=== PATIENT | female | born 1935 | race Caucasian/White ===

== ENCOUNTER 2016-12-14 15:55 | Inpatient (IN) | payer OTHER, MEDICARE ==
[~2016-12-14] VITALS: Ht 152.4 cm; Wt 78.0 kg
[~2016-12-14 15:55] MED LIST: ATOR-24 PO; CHOL100010 PO; CZR25 PO; DEXT40GE2 PO; GABA-112 PO; IPRASOL4 INH; LSX40 PO; NVLGIPEN SC; NYSTOIN5 TOP; SENN-91 PO; TYL325X PO
[2016-12-14] MEDS ORDERED: SODIUM CHLORIDE 0.9% 1000ML 500 ML IV STA (16:10)
--- NOTE | 2016-12-14 16:39 | DIAGNOSTIC IMAGING REPORT ---
CHEST ONE VIEW PORTABLE HISTORY: EVALUATE ALTERED MENTAL STATUS/WEAKNESS COMPARISON: Chest 09/07/2016. FINDINGS: The heart is mildly enlarged. No focal lung consolidations to suggest pneumonia. No evidence for pulmonary edema. Stable linear scarlike density within the left midlung zone. No pleural effusions. No pneumothorax. IMPRESSION: No significant change compared to the prior study. No acute process. Stable mild cardiomegaly. Electronically signed by: Travis Anand M.D. 12/14/2016 4:38 PM Dictated Date/Time: 12/14/2016 4:37 PM
[2016-12-14 17:19] LABS: URINE APPEARANCE CLEAR (CLEAR); URINE BILIRUBIN NEG (NEG); URINE COLOR YELLOW; URINE NITRITE NEG (NEG); URINE SPECIFIC GRAVITY 1.007 (1.000-1.030); UROBILINOGEN NEG (NEG); ZZURINE CULT IF INDIC CATH NO
[2016-12-14 17:21] LABS: MANUAL MICROSCOPIC REQUIRED? NO; REVIEW REQ? NO
--- NOTE | 2016-12-14 17:31 | EMERGENCY ROOM VISIT NOTE ---
"History Report prepared by Peter: Noe Simon Under the Supervision of: Dr. Satish Acosta M.D. First contact with patient: 16:04 Chief Complaint: REFERRED BY DOCTOR Stated Complaint: SEEING THINGS History of Present Illness The patient is an 81 year old female who presents to the Emergency Room for acute visual hallucinations that she was experiencing yesterday. The patient fell asleep on her recliner yesterday. The patient woke up thinking that there is somebody inserting something into her nose, which did not happen. The patient also believes she has been hearing things. The patient saw Dr. La yesterday, where she was diagnosed with a UTI. The patient has middle back pain, which she attributes to sciatica. The patient has not had any recent falls or trauma. She denies fevers, headaches, shortness of breath, vomiting, or diarrhea. The patient does not a cough. She was admitted to the hospital several months ago for similar complaints. She had a negative stroke workup and a questionable UTI at that time. The patient was released from the hospital just before , and has been doing well until now. Source of History: patient Onset: yesterday Position: other (visual) Quality: other (hallucinations) Timing: other (acute) Associated Symptoms: + cough, No SOB, No back pain, No diarrhea, No fevers, No headache, No vomiting Review of Systems See HPI for pertinent positives & negatives. A total of 10 systems reviewed and were otherwise negative. 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 Surgical Problems: (1) H/O esophagogastroduodenoscopy (2) H/O partial thyroidectomy (3) H/O total thyroidectomy (4) History of angioplasty of peripheral vessel (5) History of mastectomy (6) S/P cataract surgery (7) S/P T&A (status post tonsillectomy and adenoidectomy) Family History Diabetes mellitus BROTHER SISTER FH: CAD (coronary artery disease) FATHER FH: GI cancer MOTHER (Colon CA) FH: cancer BROTHER (Brain) Stroke FATHER Social History Smoking Status: Never Smoker Drug Use: none Marital Status: single Housing Status: lives alone Occupation Status: retired Current/Historical Medications Scheduled Amlodipine (Norvasc), 10 MG PO DAILY Aspirin (Aspirin 81), 81 MG PO DAILY Atorvastatin (Lipitor), 40 MG PO HS Calcitriol (Rocaltrol Cap), 1 CAP PO 3XWK Cholecalciferol (Vitamin D), 1,000 INTER.UNIT PO BID Clopidogrel (Plavix), 75 MG PO DAILY Dorzolamide Hcl-Timolol Maleat (Cosopt Oph), 1 DROPS OP BID Famotidine (Pepcid), 20 MG PO BID Fluticasone Propionate (Nasal) (Flonase), 2 SPRAYS MARK BID Furosemide (Furosemide), 40 MG PO QAM Insulin Aspart (Novolog), 10 UNITS SQ TIDM Insulin Glargine (Lantus Solostar), 13 UNITS SQ BID Isosorbide Mononitrate Ext Rel (Imdur Ext Rel), 60 MG PO QAM Levothyroxine (Synthroid *), 0.05 MG PO DAILY Losartan Potassium (Losartan Potassium), 25 MG PO QAM Lutein (Lutein), 1 CAP PO DAILY Metoprolol Succinate (Toprol Xl), 200 MG PO DAILY Nitroglycerin (Nitrostat), 0.4 MG UT PRN Nystatin/Triamcinolone (Mycogen ||), 1 APPLN TOP BID Sennosides-Docusate Sodium (Senna S), 1 TAB PO QD Scheduled PRN Acetaminophen (Tylenol), 650 MG PO Q4H PRN for Pain or Fever Dextrose (Diabetic Use) (Glutose 15), 1 EA PO DAILY PRN for Ipratropium-Albuterol (Duoneb), 3 ML INH QIDR PRN for dyspnea Allergies Coded Allergies: Adhesives (Verified Allergy, Unknown, 12/14/16) Brimonidine (Verified Allergy, Unknown, 12/14/16) Latex1 -Allergic Contact Dermititis (Verified Allergy, Unknown, 12/14/16) Methadone (Verified Allergy, Unknown, 12/14/16) Rofecoxib (Verified Allergy, Unknown, 12/14/16) Propoxyphene (Verified Adverse Reaction, Mild, 12/14/16) LIGHTHEADED Sulfa Antibiotics (Verified Adverse Reaction, Unknown, NAUSEA/VOMITING TO SULFA DRUGS, 12/14/16) Physical Exam Vital Signs Date Time Temp Pulse Resp B/P Pulse Ox O2 Delivery O2 Flow Rate FiO2 12/14/16 18:23 58 20 147/66 97 Room Air 12/14/16 17:34 62 12/14/16 15:58 36.3 68 19 125/74 96 Room Air Physical Exam GENERAL: Patient is in no acute distress. HEENT: No acute trauma, normocephalic atraumatic, mucous membranes moist, no nasal congestion, no scleral icterus. NECK: No stridor, no adenopathy, no meningismus, trachea is midline. LUNGS: Clear to auscultation bilaterally, no wheeze, no rhonchi, breath sounds equal. HEART: Without murmurs gallops or rubs, regular rate and rhythm. ABDOMEN: Soft, nontender, bowel sounds positive, no hernias, no peritonitis. EXTREMITIES: No cyanosis or edema, full range of motion of all the joints without pain or difficulty, no signs for acute trauma. NEUROLOGIC: Oriented x 3, no acute motor or sensory deficits, no focal weakness. SKIN: No rash, no jaundice, no diaphoresis. Medical Decision & Procedures ER Provider Diagnostic Interpretation: X ray results and stated below per my interpretation and radiologist interpretation. Other radiology results and stated below per my review and radiologist interpretation: CHEST ONE VIEW PORTABLE HISTORY: EVALUATE ALTERED MENTAL STATUS/WEAKNESS COMPARISON: Chest 09/07/2016. FINDINGS: The heart is mildly enlarged. No focal lung consolidations to suggest pneumonia. No evidence for pulmonary edema. Stable linear scarlike density within the left midlung zone. No pleural effusions. No pneumothorax. IMPRESSION: No significant change compared to the prior study. No acute process. Stable mild cardiomegaly. Electronically signed by: Travis Anand M.D. 12/14/2016 4:38 PM Dictated Date/Time: 12/14/2016 4:[address]: Impression: No significant change compared to the prior study. No acute intracranial abnormality. Laboratory Results 12/14/16 17:29 Red Blood Count 3.80, Mean Corpuscular Volume 90.5, Mean Corpuscular Hemoglobin 31.3, Mean Corpuscular Hemoglobin Concent 34.6, Mean Platelet Volume 11.1, Neutrophils (%) (Auto) 61.7, Lymphocytes (%) (Auto) 26.7, Monocytes (%) (Auto) 7.7, Eosinophils (%) (Auto) 3.0, Basophils (%) (Auto) 0.5, Neutrophils # (Auto) 5.17, Lymphocytes # (Auto) 2.23, Monocytes # (Auto) 0.64, Eosinophils # (Auto) 0.25, Basophils # (Auto) 0.04 12/14/16 17:29 Test 12/14/16 16:55 12/14/16 17:29 Urine Color YELLOW Urine Appearance CLEAR (CLEAR) Urine pH 5.0 (4.5-7.5) Urine Specific [place] 1.007 (1.000-1.030) Urine Protein NEG (NEG) Urine Glucose (UA) NEG (NEG) Urine Ketones NEG (NEG) Urine Occult Blood NEG (NEG) Urine Nitrite NEG (NEG) Urine Bilirubin NEG (NEG) Urine Urobilinogen NEG (NEG) Urine Leukocyte Esterase NEG (NEG) White Blood Count 8.36 K/uL (4.8-10.8) Red Blood Count 3.80 M/uL (4.2-5.4) Hemoglobin 11.9 g/dL (12.0-16.0) Hematocrit 34.4 % (37-47) Mean Corpuscular Volume 90.5 fL (80-100) Mean Corpuscular Hemoglobin 31.3 pg (25-34) Mean Corpuscular Hemoglobin Concent 34.6 g/dl (32-36) Platelet Count 255 K/uL (130-400) Mean Platelet Volume 11.1 fL (7.4-10.4) Neutrophils (%) (Auto) 61.7 % Lymphocytes (%) (Auto) 26.7 % Monocytes (%) (Auto) 7.7 % Eosinophils (%) (Auto) 3.0 % Basophils (%) (Auto) 0.5 % Neutrophils # (Auto) 5.17 K/uL (1.4-6.5) Lymphocytes # (Auto) 2.23 K/uL (1.2-3.4) Monocytes # (Auto) 0.64 K/uL (0.11-0.59) Eosinophils # (Auto) 0.25 K/uL (0-0.5) Basophils # (Auto) 0.04 K/uL (0-0.2) RDW Standard Deviation 44.5 fL (36.4-46.3) RDW Coefficient of Variation 13.6 % (11.5-14.5) Immature Granulocyte % (Auto) 0.4 % Immature Granulocyte # (Auto) 0.03 K/uL (0.00-0.02) Echinocytes 1+ Venous Blood pH 7.43 (7.36-7.41) Venous Blood Partial Pressure CO2 37 mmHg (38.0-50.0) Venous Blood Partial Pressure O2 34 mmHg Venous Blood HCO3 24 mmol/L Venous Blood Oxygen Saturation 65.6 % Venous Blood Base Excess -0.3 mmol/L Anion Gap 13.0 mmol/L (3-11) Est Creatinine Clear Calc Drug Dose 20.0 ml/min Estimated GFR () 26.3 Estimated GFR (Non- 22.7 BUN/Creatinine Ratio 21.4 (10-20) Calcium Level 8.7 mg/dl (8.5-10.1) Total Bilirubin 0.4 mg/dl (0.2-1) Aspartate Amino Transf (AST/SGOT) 18 U/L (15-37) Alanine Aminotransferase (ALT/SGPT) 21 U/L (12-78) Alkaline Phosphatase 112 U/L (45-117) Ammonia 15.0 umol/L (11-32) Troponin I < 0.015 ng/ml (0-0.045) Total Protein 7.4 gm/dl (6.4-8.2) Albumin 3.4 gm/dl (3.4-5.0) Globulin 4.0 gm/dl (2.5-4.0) Albumin/Globulin Ratio 0.9 (0.9-2) Thyroid Stimulating Hormone (TSH) 1.940 uIu/ml (0.300-4.500) Free Thyroxine 1.33 ng/dl (0.80-1.60) Laboratory results reviewed by me. Medications Administered Medications (Trade) Dose Ordered Sig/Mitch Route Start Time Stop Time Status Last Admin Dose Admin Sodium Chloride (Nss 1000ml) 500 ml @ 999 mls/hr Q31M STAT IV 12/14/16 16:10 2/2/17 16:40 DC 12/14/16 18:23 999 MLS/HR ECG Indication: back/shoulder pain Rate (beats per minute): 60 Rhythm: sinus rhythm Findings: PVC, other (baseline artifact, LVH, non-specific T wave changes laterally.) Change: no significant change Change: No significant changes when compared to EKG dated 13 Mar 2016 other than increased baseline artifact. ED Course 1606: The patient was evaluated in room B5. A complete history and physical exam was performed. 1610: NSS 500 ml @ 999 mls/hr. Medical Decision Differential diagnosis includes medication reaction, infection, electrolyte imbalance, anemia, liver failure, renal failure, intracranial bleeding, stroke, dementia, UTI. There is no leukocytosis or concerning anemia. Renal panel testing shows renal insufficiency but this appears baseline, no significant electrolyte abnormality requiring correction. There was no hepatitis. The patient appears to be in a euthyroid state. Ammonia level was not elevated. Cath urine sample does not show any signs of infection. Brain CT shows no acute bleed or mass effect. On exam, there were no focal neurologic deficits. The patient was not toxic or febrile. VBG does not show any significant CO2 retention. The patient was given IV saline, she has been resting comfortably. Right now, she is not having symptoms, she does not have any focal neurologic deficits. The patient has a change in mental status, the cause is unclear. Certainly, this may be some dementia, there is the possibility of a medication causing her trouble. I do not think she is stable for discharge home. I did speak to case management, I talked to the patient and family. The on-call hospitalist was consulted. Impression Primary Impression: Change in mental status Additional Impression: Hallucinations Scribe Attestation The scribe's documentation has been prepared under my direction and personally reviewed by me in its entirety. I confirm that the note above accurately reflects all work, treatment, procedures, and medical decision making performed by me. Departure Information Dispostion Being Evaluated By Hospitalist Referrals Ruperto Irby (PCP) Patient Instructions My [facility] Health Problem Qualifiers"
[2016-12-14 17:49] LABS: VEN BLD GAS O2 SATURATION 65.6 %; VEN BLOOD GAS BASE EXCESS -0.3 mmol/L
[2016-12-14 18:01] LABS: ALT/SGPT 21 U/L (12-78); BLOOD UREA NITROGEN 43 mg/dl (7-18); BUN/CREATININE RATIO 21.4 (10-20); CALCIUM 8.7 mg/dl (8.5-10.1); CARBON DIOXIDE 21 mmol/L (21-32); CHLORIDE 105 mmol/L (98-107); GLUCOSE 173 mg/dl (70-99); POTASSIUM 4.1 mmol/L (3.5-5.1); SODIUM 139 mmol/L (136-145)
[2016-12-14 18:04] LABS: HEMATOCRIT 34.4 % (37-47); MEAN CELL VOLUME 90.5 fL (80-100); MEAN CORPUSCULAR HEMOGLOBIN 31.3 pg (25-34); MEAN CORPUSCULAR HGB CONC 34.6 g/dl (32-36); MEAN PLATELET VOLUME 11.1 fL (7.4-10.4); PLATELET COUNT 255 K/uL (130-400); WHITE BLOOD COUNT 8.36 K/uL (4.8-10.8)
[2016-12-14 18:05] LABS: BASO % 0.5 %; BASO ABS # 0.04 K/uL (0-0.2); COMPLETE YES; ECHINOCYTES 1+; IG% 0.4 %; LYMPH % 26.7 %; LYMPH ABS # 2.23 K/uL (1.2-3.4); MONO % 7.7 %; NEUT % 61.7 %
[2016-12-14 18:11] LABS: ALB/GLOB RATIO 0.9 (0.9-2); ALKALINE PHOSPHATASE 112 U/L (45-117); AST/SGOT 18 U/L (15-37)
--- NOTE | 2016-12-14 18:21 | DIAGNOSTIC IMAGING REPORT ---
HEAD CT NONCONTRAST CT DOSE: 614.27 mGy.cm HISTORY: EVALUATE ALTERED MENTAL STATUS/WEAKNESS TECHNIQUE: Multiaxial CT images of the head were performed without the use of intravenous contrast. Automated exposure control was utilized for this study. Comparison: Head CT 09/07/2016. Findings: The paranasal sinuses and mastoid air cells are clear. The calvarium and skull base are intact. There is no mass, hematoma, midline shift, acute infarct. White matter hypodensity is nonspecific but suggestive of microvascular ischemic change. The ventricles and sulci demonstrate mild age-related involutional changes. Stable 3.1 cm arachnoid cyst within the left middle cranial fossa. Impression: No significant change compared to the prior study. No acute intracranial abnormality. Electronically signed by: Travis Anand M.D. 12/14/2016 6:20 PM Dictated Date/Time: 12/14/2016 6:16 PM
[2016-12-14] MEDS ORDERED: ACETAMINOPHEN 325 MG TAB PO PRN ×2 (20:15→20:30)
--- NOTE | 2016-12-14 20:21 | History and Physical ---
History & Physical Date & Time of Service: Dec 14, 2016 at 20:08 Chief Complaint: Seeing Things Primary Care Physician: Demond La MD History of Present Illness Source: patient, family (Nephew) 81 year old female with history of CAD, DM, HTN, other problems below presenting with visual and auditory hallucinations. Patient follows with Dr. La. She was admitted for evaluation of hallucinations last August 2016. Work up was performed and Psychiatry and Neurology was consulted. At that time, hallucinations was felt to be likely due to her Oxycodone and Gabapentin. Work up was otherwise unrevealing. She was discharged to [facility] and ultimately weaned off Oxycodone and Gabapentin. Patient returned home a month later. She lives by herself and her nephew checks on her few times a week, also manages her medications. For the past weeks, patient noted that she has been having more visual and auditory hallucinations- nurse putting something in her nose, hearing voices. Patient's nephew adds that about a month ago, patient called the police as she thought somebody might be entering her house. She saw Dr. La - Urine culture drawn and is negative for UTI. Today, she woke up and saw little girls around her bed. Dr. La advised her to go to ER. At the ER, patient was afebrile, VS stable. CT head no acute process. Crea is stable, Blood work also unrevealing including TSH, Ammonia. On exam, patient oriented x 3, not in distress, comfortable. She is frustrated , saying "they took me all my pain medicines and this is still going on." Denies other symptoms. 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 (13) Lumbago Status: Chronic (14) Sciatica Status: Chronic (15) 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 Status: Chronic (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 Surgical Problems: (1) H/O esophagogastroduodenoscopy Status: Chronic (2) H/O partial thyroidectomy Permanent Comment: 2002 Status: Chronic (3) H/O total thyroidectomy Permanent Comment: 2004 Status: Chronic (4) History of angioplasty of peripheral vessel Permanent Comment: Left Fem-pop bypass 2005 Status: Chronic (5) History of mastectomy Permanent Comment: 2006, right breast Status: Chronic (6) S/P cataract surgery Permanent Comment: 1994 Status: Chronic (7) S/P T&A (status post tonsillectomy and adenoidectomy) Status: Chronic Family History Diabetes mellitus BROTHER SISTER FH: CAD (coronary artery disease) FATHER FH: GI cancer MOTHER (Colon CA) FH: cancer BROTHER (Brain) Stroke FATHER Social History Smoking Status: Never Smoker Drug Use: none Marital Status: single Housing status: lives alone Occupational Status: retired Immunizations History of Influenza Vaccine: N/A Influenza Vaccine Date: Sep 06, 2005 History of Tetanus Vaccine?: Yes History of Pneumococcal: Yes Pneumococcal Date: Jan 19, 2010 History of Hepatitis B Vaccine: Unknown Multi-Drug Resistant Organisms History of MDRO: No Allergies Coded Allergies: Adhesives (Verified Allergy, Unknown, 12/14/16) Brimonidine (Verified Allergy, Unknown, 12/14/16) Latex1 -Allergic Contact Dermititis (Verified Allergy, Unknown, 12/14/16) Methadone (Verified Allergy, Unknown, 12/14/16) Rofecoxib (Verified Allergy, Unknown, 12/14/16) Propoxyphene (Verified Adverse Reaction, Mild, 12/14/16) LIGHTHEADED Sulfa Antibiotics (Verified Adverse Reaction, Unknown, NAUSEA/VOMITING TO SULFA DRUGS, 12/14/16) Home Medications Scheduled Amlodipine (Norvasc), 10 MG PO DAILY Aspirin (Aspirin 81), 81 MG PO DAILY Atorvastatin (Lipitor), 40 MG PO HS Calcitriol (Rocaltrol Cap), 1 CAP PO 3XWK Cholecalciferol (Vitamin D), 1,000 INTER.UNIT PO BID Clopidogrel (Plavix), 75 MG PO DAILY Dorzolamide Hcl-Timolol Maleat (Cosopt Oph), 1 DROPS OP BID Famotidine (Pepcid), 20 MG PO BID Fluticasone Propionate (Nasal) (Flonase), 2 SPRAYS MARK BID Furosemide (Furosemide), 40 MG PO QAM Insulin Aspart (Novolog), 10 UNITS SQ TIDM Insulin Glargine (Lantus Solostar), 13 UNITS SQ BID Isosorbide Mononitrate Ext Rel (Imdur Ext Rel), 60 MG PO QAM Levothyroxine (Synthroid *), 0.05 MG PO DAILY Losartan Potassium (Losartan Potassium), 25 MG PO QAM Lutein (Lutein), 1 CAP PO DAILY Metoprolol Succinate (Toprol Xl), 200 MG PO DAILY Nitroglycerin (Nitrostat), 0.4 MG UT PRN Nystatin/Triamcinolone (Mycogen ||), 1 APPLN TOP BID Sennosides-Docusate Sodium (Senna S), 1 TAB PO QD Scheduled PRN Acetaminophen (Tylenol), 650 MG PO Q4H PRN for Pain or Fever Dextrose (Diabetic Use) (Glutose 15), 1 EA PO DAILY PRN for Ipratropium-Albuterol (Duoneb), 3 ML INH QIDR PRN for dyspnea Review of Systems Constitutional- no fever; no weight loss Eyes- no acute visual changes ENT- no sinus drainage; no pharyngitis Pulmonary- no cough, no wheezing, no shortness of breath Cardiac- no chest pain, no palpitations, no orthopnea, no dependent edema GI- no nausea, no vomiting, no diarrhea, no melena, no hematochezia - no dysuria, no hematuria Musculoskeletal- no arthralgias, no myalgias Derm- no rashes, no new skin lesions, no changing skin lesions Hematologic- no unusual bruising, no unusual bleeding Lymphatics- no adenopathy Endocrine- no polyuria or polydipsia; no heat or cold intolerance Neuro- no headaches, no focal neurologic symptoms Psych- (+) as noted above, no anxiety, no depression Physical Exam Vital Signs Date Time Temp Pulse Resp B/P Pulse Ox O2 Delivery O2 Flow Rate FiO2 12/14/16 19:09 70 19 169/81 97 Room Air 12/14/16 18:23 58 20 147/66 97 Room Air 12/14/16 17:34 62 12/14/16 15:58 36.3 68 19 125/74 96 Room Air General Appearance: WD/WN, no apparent distress Head: normocephalic, atraumatic Eyes: normal inspection, PERRL, EOMI ENT: normal ENT inspection, hearing grossly normal, pharynx normal Neck: supple, no adenopathy, thyroid normal, no JVD, trachea midline Respiratory/Chest: chest non-tender, lungs clear, normal breath sounds, no respiratory distress, no accessory muscle use Cardiovascular: regular rate, rhythm, no edema, no gallop, no murmur Abdomen/GI: normal bowel sounds, non tender, soft Back: normal inspection, no CVA tenderness Extremities/Musculoskelatal: normal inspection, no calf tenderness, normal capillary refill, no pedal edema, normal range of motion Neurologic/Psych: equipment analyst II-XII nml as tested, no motor/sensory deficits, alert, normal mood/affect, normal reflexes, oriented x 3 Skin: normal color, warm/dry, no rash Lymphatic: no adenopathy Diagnostics Laboratory Results Results Past 24 Hours Test 12/14/16 16:55 12/14/16 17:29 Range/Units Urine Color YELLOW Urine Appearance CLEAR CLEAR Urine pH 5.0 4.5-7.5 Urine Specific [place] 1.007 1.000-1.030 Urine Protein NEG NEG Urine Glucose (UA) NEG NEG Urine Ketones NEG NEG Urine Occult Blood NEG NEG Urine Nitrite NEG NEG Urine Bilirubin NEG NEG Urine Urobilinogen NEG NEG Urine Leukocyte Esterase NEG NEG White Blood Count 8.36 4.8-10.8 K/uL Red Blood Count 3.80 4.2-5.4 M/uL Hemoglobin 11.9 12.0-16.0 g/dL Hematocrit 34.4 37-47 % Mean Corpuscular Volume 90.5 80-100 fL Mean Corpuscular Hemoglobin 31.3 25-34 pg Mean Corpuscular Hemoglobin Concent 34.6 32-36 g/dl Platelet Count 255 130-400 K/uL Mean Platelet Volume 11.1 7.4-10.4 fL Neutrophils (%) (Auto) 61.7 % Lymphocytes (%) (Auto) 26.7 % Monocytes (%) (Auto) 7.7 % Eosinophils (%) (Auto) 3.0 % Basophils (%) (Auto) 0.5 % Neutrophils # (Auto) 5.17 1.4-6.5 K/uL Lymphocytes # (Auto) 2.23 1.2-3.4 K/uL Monocytes # (Auto) 0.64 0.11-0.59 K/uL Eosinophils # (Auto) 0.25 0-0.5 K/uL Basophils # (Auto) 0.04 0-0.2 K/uL RDW Standard Deviation 44.5 36.4-46.3 fL RDW Coefficient of Variation 13.6 11.5-14.5 % Immature Granulocyte % (Auto) 0.4 % Immature Granulocyte # (Auto) 0.03 0.00-0.02 K/uL Echinocytes 1+ Venous Blood pH 7.43 7.36-7.41 Venous Blood Partial Pressure CO2 37 38.0-50.0 mmHg Venous Blood Partial Pressure O2 34 mmHg Venous Blood HCO3 24 mmol/L Venous Blood Oxygen Saturation 65.6 % Venous Blood Base Excess -0.3 mmol/L Sodium Level 139 136-145 mmol/L Potassium Level 4.1 3.5-5.1 mmol/L Chloride Level 105 98-107 mmol/L Carbon Dioxide Level 21 21-32 mmol/L Anion Gap 13.0 3-11 mmol/L Blood Urea Nitrogen 43 7-18 mg/dl Creatinine 2.00 0.60-1.20 mg/dl Est Creatinine Clear Calc Drug Dose 20.0 ml/min Estimated GFR () 26.3 Estimated GFR (Non- 22.7 BUN/Creatinine Ratio 21.4 10-20 Random Glucose 173 70-99 mg/dl Calcium Level 8.7 8.5-10.1 mg/dl Total Bilirubin 0.4 0.2-1 mg/dl Aspartate Amino Transf (AST/SGOT) 18 15-37 U/L Alanine Aminotransferase (ALT/SGPT) 21 12-78 U/L Alkaline Phosphatase 112 45-117 U/L Ammonia 15.0 11-32 umol/L Troponin I < 0.015 0-0.045 ng/ml Total Protein 7.4 6.4-8.2 gm/dl Albumin 3.4 3.4-5.0 gm/dl Globulin 4.0 2.5-4.0 gm/dl Albumin/Globulin Ratio 0.9 0.9-2 Thyroid Stimulating Hormone (TSH) 1.940 0.300-4.500 uIu/ml Free Thyroxine 1.33 0.80-1.60 ng/dl Diagnostic Radiology CT head: Findings: The paranasal sinuses and mastoid air cells are clear. The calvarium and skull base are intact. There is no mass, hematoma, midline shift, acute infarct. White matter hypodensity is nonspecific but suggestive of microvascular ischemic change. The ventricles and sulci demonstrate mild age-related involutional changes. Stable 3.1 cm arachnoid cyst within the left middle cranial fossa. Impression: No significant change compared to the prior study. No acute intracranial abnormality. CXR: IMPRESSION: No significant change compared to the prior study. No acute process. Stable mild cardiomegaly. EKG HR 60, sinus rhythm, with PVCs Impression Assessment and Plan 81 year old female with history of CAD, DM, HTN, other problems below presenting with visual and auditory hallucinations. HALLUCINATIONS- AUDITORY AND VISUAL - at this time, no signs of underlying infection or possible metabolic encephalopathy - ammonia normal, crea at baseline TSH normal check Vit b12 and Folate - Neuro work up done 08/28, unrevealing - will re-consult Psych HISTORY OF CAD no cardiac symptoms continue Aspirin, Plavix, Imdur, Losartan, Metoprolol DM 2 continue Lantus BID ISS HYPERTENSION stable continue Amlodipine and above medications CKD 4 crea stable HYPOTHYROIDISM euthyroid TSH/T4 normal DVT prophylaxis SCDs Code status Full Code Disposition lives alone at home will need PT/OT eval will benefit from home health services ff up with PCP Dr. La VTE Prophylaxis VTE Risk Assessment Done? Y/N: Yes Risk Level: Moderate
[2016-12-14] MEDS ORDERED: ONDANSETRON INJ 2 MG/ML 2 ML VIAL IV PRN (20:30)
[2016-12-14] MEDS ORDERED: ATORVASTATIN 40 MG TAB PO SCH (21:00)
[2016-12-14 21:52] VITALS: BP 147/87; PULSE 68; TEMP 36.4; O2SAT 97; Ht 152.4 cm; Wt 78.0 kg
[2016-12-14] MEDS ORDERED: GLUCAGON FOR INJ 1 MG VIAL SQ PRN (22:15)
[2016-12-14] MEDS ORDERED: GLUCOSE 10 TABS/TUBE PO PRN (22:15)
[2016-12-14] MEDS ORDERED: GLUCOSE 40% GEL 15 GM TUBE PO PRN (22:15)
[2016-12-14] MEDS ORDERED: DEXTROSE 50% 50 ML SYR IV PRN (22:15)
[2016-12-14] MEDS: CHOLECALCIFEROL 1000 INTER.UNIT TAB PO SCH (22:34)
[2016-12-14] MEDS: FAMOTIDINE 20 MG TAB PO SCH (22:34)
[2016-12-14] MEDS: INSULIN GLARGINE SOLOSTAR 100 UNITS/ML 3 ML PEN SQ SCH (22:35)
[2016-12-14 23:19] LABS: BENZODIAZEPINE, URINE NEG (NEG); COCAINE,URINE NEG (NEG); PHENCYCLIDINE, URINE NEG (NEG)
[2016-12-15 00:43] VITALS: BP 127/66; PULSE 63; TEMP 36.5; O2SAT 99
[2016-12-15] MEDS ORDERED: GLUCOSE 40% GEL 15 GM TUBE PO PRN (04:00)
[2016-12-15] MEDS ORDERED: GLUCAGON FOR INJ 1 MG VIAL SQ PRN (04:00)
[2016-12-15] MEDS ORDERED: GLUCOSE 10 TABS/TUBE PO PRN (04:00)
[2016-12-15] MEDS ORDERED: DEXTROSE 50% 50 ML SYR IV PRN (04:00)
[2016-12-15] MEDS: LEVOTHYROXINE 50 MCG TAB PO SCH (06:20)
--- NOTE | 2016-12-15 07:17 | Clinical Documentation Query ---
CLINICAL DOCUMENTATION QUERY Dr. RENO, In your clinical opinion is this patient being managed for: (X ) Chronic combined systolic and diastolic CHF ( ) Other explanation of clinical findings (Please Explain) ( ) Unable to determine (Please Define) ( ) Need to Discuss ( ) Not Agree The medical record reflects the following clinical findings, treatment, and risk factors. Clinical Indicators: H/P indicates pt with hx of CHF. Review of EMR showed ECHO from February 2016 with an EF of 45-50% and grade I diastolic dysfunction Treatment:chronic norvasc, lasix, imdur, cozaar, toprol xl, Risk Factors: age, DM, HTN Please clarify and document your clinical opinion in the progress notes and discharge summary. Terms such as "probable", "suspected", "likely", "questionable", "possible", or "still to be ruled out" are acceptable. IF IN AGREEMENT, YOU MUST DOCUMENT ABOVE DIAGNOSTIC STATEMENT IN DAILY PROGRESS NOTES AND DISCHARGE SUMMARY. This document is not part of the patient's record. Thank You, Vandana Banuelos, JIMENEZ [phone]
[2016-12-15 07:22] LABS: BASO % 0.7 %; BASO ABS # 0.04 K/uL (0-0.2); COMPLETE YES; EOS % 6.3 %; HEMATOCRIT 33.1 % (37-47); IG% 0.2 %; LYMPH % 30.8 %; MEAN CELL VOLUME 90.2 fL (80-100); MEAN CORPUSCULAR HGB CONC 33.2 g/dl (32-36); MEAN PLATELET VOLUME 11.5 fL (7.4-10.4); MONO % 9.4 %; NEUT % 52.6 %; PLATELET COUNT 246 K/uL (130-400); RED BLOOD COUNT 3.67 M/uL (4.2-5.4); WHITE BLOOD COUNT 5.84 K/uL (4.8-10.8)
[2016-12-15] MEDS ORDERED: NURSING DECISION MEDICATION ORDER SCH (07:30)
[2016-12-15] MEDS ORDERED: MICONAZOLE NITRATE POWDER 43 GM EXT PRN (07:45)
[2016-12-15 08:10] LABS: BUN/CREATININE RATIO 21.3 (10-20); CALCIUM 8.3 mg/dl (8.5-10.1); CREATININE 1.7 mg/dl (0.60-1.20); POTASSIUM 4.1 mmol/L (3.5-5.1)
[2016-12-15 08:15] VITALS: BP 136/77; PULSE 60; TEMP 36.6; O2SAT 99
[2016-12-15] MEDS: ISOSORBIDE MONONITRATE 60 MG TABCR PO SCH (08:27)
[2016-12-15] MEDS: METOPROLOL SUCC 50MG EXT REL TAB PO SCH (08:27)
[2016-12-15] MEDS: FUROSEMIDE 40 MG TAB PO SCH (08:28)
[2016-12-15] MEDS: CLOPIDOGREL BISULFATE 75 MG TAB PO SCH (08:28)
[2016-12-15] MEDS: AMLODIPINE BESYLATE 5 MG TAB PO SCH (08:28)
[2016-12-15] MEDS: ASPIRIN 81 MG ECTAB PO SCH (08:28)
[2016-12-15] MEDS: FAMOTIDINE 20 MG TAB PO SCH ×2 (08:28→21:17)
[2016-12-15] MEDS: DORZOLAMIDE/TIMOLOL 22.3/6.8MG/ML 10 ML BTL OP SCH ×2 (08:29→21:15)
[2016-12-15] MEDS: NYSTATIN/TRIAMCINOLONE OINT 15 GM TUBE EXT SCH ×2 (08:29→21:15)
[2016-12-15] MEDS: CALCITRIOL 0.25 MCG CAP PO SCH (08:29)
[2016-12-15] MEDS: CHOLECALCIFEROL 1000 INTER.UNIT TAB PO SCH ×2 (08:29→21:18)
[2016-12-15] MEDS: DOCUSATE SODIUM/SENNA 50/8.6MG TAB PO SCH (08:30)
[2016-12-15] MEDS: LOSARTAN POTASSIUM 25 MG TAB PO SCH (08:30)
[2016-12-15] MEDS: FLUTICASONE PROPIONATE NA SPR 16 GM BTL NAE SCH ×2 (08:30→21:15)
[2016-12-15] MEDS: INSULIN ASPART 100 UNITS/ML 3 ML PEN SC SCH ×5 (08:44→22:28)
[2016-12-15] MEDS: INSULIN GLARGINE SOLOSTAR 100 UNITS/ML 3 ML PEN SQ SCH ×2 (08:50→21:24)
--- NOTE | 2016-12-15 12:28 | Psych Management Progress Note ---
Psychiatry Miscellaneous Date of Service: Dec 15, 2016. Patient seen. MS assessed. Known to me from a previous inpatient consultation. Full consult dictated. Patient describing hypopompic strong in setting of variable blood sugars and poor eye sight, can't exclude Aravind Bonnet syndrome, suspect component of sundowning. She is amenable to trial of low dose Seroquel given ongoing nature of these complaints.
[2016-12-15 15:34] VITALS: BP 111/57; PULSE 61; TEMP 36.7; O2SAT 92
--- NOTE | 2016-12-15 16:18 | PSYCHIATRIC CONSULTATION ---
DATE OF CONSULTATION: 12/15/2016 IDENTIFYING DATA: Ms. Diehl is an 81-year-old female who lives alone () in [place]. She was previously seen on psychiatric consultation on 09/07/2016. At that time, her nephew/power of document review attorney was concerned about her reports of hallucinations, particularly in the context of deteriorating eyesight. At that time she was calling police to check out cars that she heard pulling away and thought there were people in her basement. Apparently in the context of home, she had voiced paranoia about someone trying to harm her, but those symptoms were not present in the hospital under observed med compliance. There was concern in that she was starting to wander, related to these voices. At least at that time, there was concern about additional delirium as she was being treated for UTI with Cipro. Her nephew had reported seeing pills on the floor and unused insulin syringes. There was concern about her ability to prepare meals for herself and she was ultimately discharged to rehab. This hospitalization, she has been again having more visual and auditory hallucinations. Previously she had described blue people. Today, she tells me that she saw multiple girls, less than 3 feet tall, dressed in pink dresses. She describes this occurred immediately upon awakening and was just transient. She states she had noted low blood sugar prior to having a snack and taking a nap. CT was negative. To me, she mainly describes what sounds like illusions, given her poor eyesight and/or deteriorating memory. She goes into her closet and does not recognize clothes. She can only do certain tasks during the day due to her poor eyesight. She states she was trying to clean out some drawers and found a ripped sheet that she did not think was hers. PAST PSYCHIATRIC HISTORY: None other than the previous consultation. PAST MEDICAL HISTORY: Significant for diabetes type 2, goiter, history of OH, reflux, hypertension, dyslipidemia, hypothyroidism, glaucoma. PAST SURGICAL HISTORY: Surgeries as previously listed. ALLERGIES: ADHESIVES, BRIMONIDINE, LATEX, METHADONE, ROFECOXIB, PROPOXYPHENE, SULFA ANTIBIOTICS. HOME MEDICATIONS: Calcitriol, amlodipine, aspirin, Plavix, Lasix, Imdur, Cozaar, Toprol, Senokot, Synthroid, insulin, vitamin D, Pepcid, Lipitor, Flonase, Mycogen ointment. FAMILY HISTORY: There is no family psychiatric history or history of suicide attempts. This was previously confirmed with nephew. Alcohol use none. SUBSTANCE USE HISTORY: None. PERSONAL HISTORY: Born in [place], had 4 sisters and 3 brothers, only 2 of her brothers are still alive. 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 She was 6 years. Her in 1979. She has no children. No history of legal problems. No abuse history. REVIEW OF SYSTEMS: The patient is currently without physical complaints cross 10 body systems. MENTAL STATUS EXAMINATION: Ms. Diehl presents as somewhat disheveled female who appears her stated age. She is quite hard of hearing. She did maintain fair eye contact. She is dressed in a hospital gown. Her thought processes are somewhat tangential. She denied suicidal or homicidal ideation. She denied hallucinations currently and did not appear to be responding to internal stimuli. Insight and judgment are better than last contact, but still somewhat impaired. IMPRESSION: An 81-year-old female with hallucinations and some behavioral disturbance, likely related to underlying dementia, cannot exclude Aravind Bonnet syndrome. Certainly, she herself notices fluctuations in her symptoms depending on blood sugar control and there is evidence from family to suspect she is not able to keep up with medications and meals without supervision. PLAN: She currently states that she would be amenable to in-home nursing services, obviously involvement of [facility] would also be warranted. Ideally, she would go to assisted living setting where there is some oversight of her meals and medications. Her symptoms are distressing to her, particularly at night, so I suspect there is some degree of sundowning. Treatment with Aricept or another agent can be deferred to outpatient provider. Acutely, she is willing to try Seroquel which was discussed with her nephew last hospitalization, given the risks of in elderly. Current benefits seem to outweigh the risks, given repeated hospitalization. If related to eyesight/poor hearing/Aravind Bonnet syndrome, Seroquel unlikely to be effective. We will start 12.5 mg Seroquel at bedtime. Monitor sugars. Currently on exam, there is no acute indication for inpatient geriatric psychiatric hospitalization, but I do not feel that she can be home unsupervised. [facility]
--- NOTE | 2016-12-15 17:08 | Progress Note ---
Internal Med Progress Note Date of Service: Dec 15, 2016. Provider Documentation: SUBJECTIVE: patient says she saw rails at the door not hearing any voices says recent;y pravastatin was changed to Lipitor and thinks Lipitor causing cough afebrile denies any pain OBJECTIVE: Vital Signs-as noted below Exam: General-alert and oriented ENT-hard of hearing Neck-no neck masses Lungs-cta b/l no wheezing or crackles Heart-s1 and s2 heard regular rate and rhythm no murmurs Abdomen-soft bowel sounds present non tender no distension Extremities-no erythema no edema Neuro-alert and awake and oriented non focal Lab data as noted below. ASSESSMENT & PLAN: 81 year old female with history of CAD, DM, HTN, other problems below presenting with visual and auditory hallucinations. HALLUCINATIONS- AUDITORY AND VISUAL no signs of infection labs unremarkable ammonia levels normal TSH normal Normal Vit b12 and Folate Neuro work up done 08/28, unrevealing consulted psychiatry and started on Seroquel. will monitor HISTORY OF CAD stable on Aspirin, Plavix, Imdur, Losartan, Metoprolol DM 2 On Lantus BID ISS will monitor HYPERTENSION stable on Amlodipine and above medications CKD 4 crea stable at 1.7 HYPOTHYROIDISM euthyroid TSH/T4 normal DVT prophylaxis SCDs Code status Full Code Disposition lives alone at home Needs PT/OT eval social service for d/c planning Vital Signs: Date Time Temp Pulse Resp B/P Pulse Ox O2 Delivery O2 Flow Rate FiO2 12/15/16 15:34 36.7 61 18 111/57 92 Room Air 12/15/16 08:15 36.6 60 20 136/77 99 Room Air 12/15/16 08:00 Room Air 12/15/16 00:43 36.5 63 20 127/66 99 Room Air 12/15/16 00:00 Room Air 12/14/16 21:52 36.4 68 147/87 97 Room Air 12/14/16 20:56 64 18 142/77 97 12/14/16 19:09 70 19 169/81 97 Room Air 12/14/16 18:23 58 20 147/66 97 Room Air 12/14/16 17:34 62 Lab Results: Results Past 24 Hours Test 12/14/16 17:29 12/14/16 22:45 12/15/16 06:45 12/15/16 07:57 Range/Units White Blood Count 8.36 5.84 4.8-10.8 K/uL Red Blood Count 3.80 3.67 4.2-5.4 M/uL Hemoglobin 11.9 11.0 12.0-16.0 g/dL Hematocrit 34.4 33.1 37-47 % Mean Corpuscular Volume 90.5 90.2 80-100 fL Mean Corpuscular Hemoglobin 31.3 30.0 25-34 pg Mean Corpuscular Hemoglobin Concent 34.6 33.2 32-36 g/dl Platelet Count 255 246 130-400 K/uL Mean Platelet Volume 11.1 11.5 7.4-10.4 fL Neutrophils (%) (Auto) 61.7 52.6 % Lymphocytes (%) (Auto) 26.7 30.8 % Monocytes (%) (Auto) 7.7 9.4 % Eosinophils (%) (Auto) 3.0 6.3 % Basophils (%) (Auto) 0.5 0.7 % Neutrophils # (Auto) 5.17 3.07 1.4-6.5 K/uL Lymphocytes # (Auto) 2.23 1.80 1.2-3.4 K/uL Monocytes # (Auto) 0.64 0.55 0.11-0.59 K/uL Eosinophils # (Auto) 0.25 0.37 0-0.5 K/uL Basophils # (Auto) 0.04 0.04 0-0.2 K/uL RDW Standard Deviation 44.5 45.1 36.4-46.3 fL RDW Coefficient of Variation 13.6 13.6 11.5-14.5 % Immature Granulocyte % (Auto) 0.4 0.2 % Immature Granulocyte # (Auto) 0.03 0.01 0.00-0.02 K/uL Echinocytes 1+ Venous Blood pH 7.43 7.36-7.41 Venous Blood Partial Pressure CO2 37 38.0-50.0 mmHg Venous Blood Partial Pressure O2 34 mmHg Venous Blood HCO3 24 mmol/L Venous Blood Oxygen Saturation 65.6 % Venous Blood Base Excess -0.3 mmol/L Sodium Level 139 144 136-145 mmol/L Potassium Level 4.1 4.1 3.5-5.1 mmol/L Chloride Level 105 109 98-107 mmol/L Carbon Dioxide Level 21 26 21-32 mmol/L Anion Gap 13.0 9.0 3-11 mmol/L Blood Urea Nitrogen 43 36 7-18 mg/dl Creatinine 2.00 1.70 0.60-1.20 mg/dl Est Creatinine Clear Calc Drug Dose 20.0 23.6 ml/min Estimated GFR () 26.3 32.0 Estimated GFR (Non- 22.7 27.6 BUN/Creatinine Ratio 21.4 21.3 10-20 Random Glucose 173 106 70-99 mg/dl Calcium Level 8.7 8.3 8.5-10.1 mg/dl Total Bilirubin 0.4 0.2-1 mg/dl Aspartate Amino Transf (AST/SGOT) 18 15-37 U/L Alanine Aminotransferase (ALT/SGPT) 21 12-78 U/L Alkaline Phosphatase 112 45-117 U/L Ammonia 15.0 11-32 umol/L Troponin I < 0.015 0-0.045 ng/ml Total Protein 7.4 6.4-8.2 gm/dl Albumin 3.4 3.4-5.0 gm/dl Globulin 4.0 2.5-4.0 gm/dl Albumin/Globulin Ratio 0.9 0.9-2 Thyroid Stimulating Hormone (TSH) 1.940 0.300-4.500 uIu/ml Free Thyroxine 1.33 0.80-1.60 ng/dl Urine Opiates Screen NEG NEG Urine Methadone, Qualitative NEG NEG Urine Barbiturates NEG NEG Urine Phencyclidine (PCP) Level NEG NEG Ur Amphetamine/Methamphetamine NEG NEG MDMA (Ecstasy) Screen NEG NEG Urine Benzodiazepines Screen NEG NEG Urine Cocaine Metabolite NEG NEG Urine Marijuana (THC) NEG NEG Vitamin B12 Level 669 211-911 pg/mL Folate > 24.00 >5.38 ng/mL Bedside Glucose 97 70-90 mg/dl
[2016-12-15] MEDS: PRAVASTATIN SOD 40 MG TAB PO SCH (17:54)
[2016-12-15] MEDS: QUETIAPINE FUMARATE 25 MG TAB PO SCH (21:18)
[2016-12-16 00:09] VITALS: BP 103/63; PULSE 63; TEMP 37; O2SAT 96
[2016-12-16] MEDS: LEVOTHYROXINE 50 MCG TAB PO SCH (05:50)
[2016-12-16 07:10] VITALS: BP 146/75; PULSE 57; TEMP 36.8; O2SAT 98
[2016-12-16] MEDS: METOPROLOL SUCC 50MG EXT REL TAB PO SCH (07:41)
[2016-12-16] MEDS: DORZOLAMIDE/TIMOLOL 22.3/6.8MG/ML 10 ML BTL OP SCH ×2 (07:42→20:54)
[2016-12-16] MEDS: NYSTATIN/TRIAMCINOLONE OINT 15 GM TUBE EXT SCH ×2 (07:42→20:55)
[2016-12-16] MEDS: FLUTICASONE PROPIONATE NA SPR 16 GM BTL NAE SCH ×2 (07:42→20:54)
[2016-12-16] MEDS: CLOPIDOGREL BISULFATE 75 MG TAB PO SCH (07:43)
[2016-12-16] MEDS: DOCUSATE SODIUM/SENNA 50/8.6MG TAB PO SCH (07:43)
[2016-12-16] MEDS: CHOLECALCIFEROL 1000 INTER.UNIT TAB PO SCH ×2 (07:43→20:53)
[2016-12-16] MEDS: ISOSORBIDE MONONITRATE 60 MG TABCR PO SCH (07:43)
[2016-12-16] MEDS: LOSARTAN POTASSIUM 25 MG TAB PO SCH (07:43)
[2016-12-16] MEDS: AMLODIPINE BESYLATE 5 MG TAB PO SCH (07:43)
[2016-12-16] MEDS: FAMOTIDINE 20 MG TAB PO SCH ×2 (07:43→20:54)
[2016-12-16] MEDS: ASPIRIN 81 MG ECTAB PO SCH (07:43)
[2016-12-16] MEDS: FUROSEMIDE 40 MG TAB PO SCH (07:43)
[2016-12-16] MEDS: INSULIN ASPART 100 UNITS/ML 3 ML PEN SC SCH ×4 (09:02→21:10)
[2016-12-16] MEDS: INSULIN GLARGINE SOLOSTAR 100 UNITS/ML 3 ML PEN SQ SCH ×2 (09:03→21:10)
[2016-12-16 15:57] VITALS: BP 138/75; PULSE 62; TEMP 36.3; O2SAT 99
[2016-12-16] MEDS: PRAVASTATIN SOD 40 MG TAB PO SCH (17:04)
--- NOTE | 2016-12-16 17:29 | Progress Note ---
Internal Med Progress Note Date of Service: Dec 16, 2016. Provider Documentation: SUBJECTIVE: patient says last night she was little confused and did not know where she was but ok now didn't see any things today eating ok When I told I changed her Lipitor to pravastatin she says her cough is better now afebrile OBJECTIVE: Vital Signs-as noted below Exam: General-alert and oriented ENT-hard of hearing Neck-no neck masses Lungs-cta b/l no wheezing or crackles Heart-s1 and s2 heard regular rate and rhythm no murmurs Abdomen-soft bowel sounds present non tender no distension Extremities-no erythema no edema Neuro-alert and awake and oriented non focal Lab data as noted below. ASSESSMENT & PLAN: 81 year old female with history of CAD, DM, HTN, other problems below presenting with visual and auditory hallucinations. HALLUCINATIONS- AUDITORY AND VISUAL no signs of infection labs unremarkable ammonia levels normal TSH normal Normal Vit b12 and Folate Neuro work up done 08/28, unrevealing consulted psychiatry and started on Seroquel. pt/ot lives alone may need placement will monitor HISTORY OF CAD stable on Aspirin, Plavix, Imdur, Losartan, Metoprolol DM 2 On Lantus BID ISS will monitor HYPERTENSION stable on Amlodipine and above medications CKD 4 crea stable at 1.7 CHRONIC SYSTOLIC AND DIASTOLIC CHF CONTINUE HOME MEDS STABLE HYPOTHYROIDISM euthyroid TSH/T4 normal DVT prophylaxis SCDs Code status Full Code Disposition lives alone at home PT/OT eval social service for d/c planning Vital Signs: Date Time Temp Pulse Resp B/P Pulse Ox O2 Delivery O2 Flow Rate FiO2 12/17/16 11:04 Room Air 12/17/16 00:42 36.5 65 18 152/76 97 Room Air 12/16/16 23:59 Room Air 12/16/16 19:28 Room Air 12/16/16 15:57 36.3 62 20 138/75 99 Lab Results: Results Past 24 Hours Test 12/16/16 16:54 12/16/16 20:36 12/17/16 01:14 12/17/16 05:29 Range/Units Bedside Glucose 95 195 213 70-90 mg/dl White Blood Count 6.73 4.8-10.8 K/uL Red Blood Count 3.54 4.2-5.4 M/uL Hemoglobin 11.0 12.0-16.0 g/dL Hematocrit 31.5 37-47 % Mean Corpuscular Volume 89.0 80-100 fL Mean Corpuscular Hemoglobin 31.1 25-34 pg Mean Corpuscular Hemoglobin Concent 34.9 32-36 g/dl Platelet Count 217 130-400 K/uL Neutrophils (%) (Auto) 47.6 % Lymphocytes (%) (Auto) 31.6 % Monocytes (%) (Auto) 14.0 % Eosinophils (%) (Auto) 5.9 % Basophils (%) (Auto) 0.6 % Neutrophils # (Auto) 3.20 1.4-6.5 K/uL Lymphocytes # (Auto) 2.13 1.2-3.4 K/uL Monocytes # (Auto) 0.94 0.11-0.59 K/uL Eosinophils # (Auto) 0.40 0-0.5 K/uL Basophils # (Auto) 0.04 0-0.2 K/uL Immature Granulocyte % (Auto) 0.3 % Immature Granulocyte # (Auto) 0.02 0.00-0.02 K/uL Sodium Level 142 136-145 mmol/L Potassium Level 3.8 3.5-5.1 mmol/L Chloride Level 108 98-107 mmol/L Carbon Dioxide Level 25 21-32 mmol/L Anion Gap 9.0 3-11 mmol/L Blood Urea Nitrogen 52 7-18 mg/dl Creatinine 2.00 0.60-1.20 mg/dl Est Creatinine Clear Calc Drug Dose 20.0 ml/min Estimated GFR () 26.3 Estimated GFR (Non- 22.7 BUN/Creatinine Ratio 26.2 10-20 Random Glucose 139 70-99 mg/dl Calcium Level 8.5 8.5-10.1 mg/dl Test 12/17/16 07:49 12/17/16 11:30 Range/Units Bedside Glucose 122 334 70-90 mg/dl
[2016-12-16] MEDS: QUETIAPINE FUMARATE 25 MG TAB PO SCH (20:53)
[2016-12-17 00:42] VITALS: BP 152/76; PULSE 65; TEMP 36.5; O2SAT 97
[2016-12-17] MEDS: LEVOTHYROXINE 50 MCG TAB PO SCH (05:38)
[2016-12-17 05:50] LABS: BASO % 0.6 %; BASO ABS # 0.04 K/uL (0-0.2); COMPLETE YES; EOS % 5.9 %; HEMATOCRIT 31.5 % (37-47); IG% 0.3 %; LYMPH % 31.6 %; LYMPH ABS # 2.13 K/uL (1.2-3.4); MEAN CORPUSCULAR HEMOGLOBIN 31.1 pg (25-34); MEAN CORPUSCULAR HGB CONC 34.9 g/dl (32-36); NEUT % 47.6 %; PLATELET COUNT 217 K/uL (130-400); RED BLOOD COUNT 3.54 M/uL (4.2-5.4); WHITE BLOOD COUNT 6.73 K/uL (4.8-10.8)
[2016-12-17 06:16] LABS: BUN/CREATININE RATIO 26.2 (10-20); CALCIUM 8.5 mg/dl (8.5-10.1); POTASSIUM 3.8 mmol/L (3.5-5.1)
[2016-12-17] MEDS: FLUTICASONE PROPIONATE NA SPR 16 GM BTL NAE SCH ×2 (09:08→20:25)
[2016-12-17] MEDS: DORZOLAMIDE/TIMOLOL 22.3/6.8MG/ML 10 ML BTL OP SCH ×2 (09:08→20:25)
[2016-12-17] MEDS: NYSTATIN/TRIAMCINOLONE OINT 15 GM TUBE EXT SCH ×2 (09:08→20:29)
[2016-12-17] MEDS: FUROSEMIDE 40 MG TAB PO SCH (09:09)
[2016-12-17] MEDS: ISOSORBIDE MONONITRATE 60 MG TABCR PO SCH (09:09)
[2016-12-17] MEDS: ASPIRIN 81 MG ECTAB PO SCH (09:09)
[2016-12-17] MEDS: LOSARTAN POTASSIUM 25 MG TAB PO SCH (09:09)
[2016-12-17] MEDS: CHOLECALCIFEROL 1000 INTER.UNIT TAB PO SCH ×2 (09:10→20:25)
[2016-12-17] MEDS: METOPROLOL SUCC 50MG EXT REL TAB PO SCH (09:10)
[2016-12-17] MEDS: CLOPIDOGREL BISULFATE 75 MG TAB PO SCH (09:10)
[2016-12-17] MEDS: FAMOTIDINE 20 MG TAB PO SCH ×2 (09:10→20:26)
[2016-12-17] MEDS: AMLODIPINE BESYLATE 5 MG TAB PO SCH (09:10)
[2016-12-17] MEDS: INSULIN ASPART 100 UNITS/ML 3 ML PEN SC SCH ×4 (09:11→20:40)
[2016-12-17] MEDS: INSULIN GLARGINE SOLOSTAR 100 UNITS/ML 3 ML PEN SQ SCH ×2 (09:12→20:39)
[2016-12-17] MEDS: DOCUSATE SODIUM/SENNA 50/8.6MG TAB PO SCH (10:47)
--- NOTE | 2016-12-17 15:23 | Progress Note ---
Internal Med Progress Note Date of Service: Dec 17, 2016. Provider Documentation: SUBJECTIVE: The patient was seen and examined Feels better and denies any more Hallucinations Has had only one episode of cough last night OBJECTIVE: Vital Signs-as noted below Exam: General-No distress at rest Eyes-normal ENT-normal Neck-Supple Lungs-Clear to auscultate bilaterally Heart-Regular,no murmur Abdomen-Benifn,no masses,bowel sound present Extremities-No edema Neuro-AA Lab data as noted below. ASSESSMENT & PLAN: 81 year old female with history of CAD, DM, HTN, other problems below presenting with visual and auditory hallucinations. HALLUCINATIONS- AUDITORY AND VISUAL No signs of infection and or Encephalopathy Labs unremarkable,ammonia levels normal,TSH normai,Normal Vit b12 and Folate Neuro work up done 08/28, unrevealing Psychiatry consulted and started on Seroquel. Clinically better and symptomatically better Likely to be discharged in a day or two HISTORY OF CAD Stable on Aspirin, Plavix, Imdur, Losartan, Metoprolol DM 2 On Lantus BID ISS will monitor HYPERTENSION stable on Amlodipine and above medications CKD 4 Creatinine stable at 1.7 Worse today 12/17/16 Advised more fluid intake CHRONIC SYSTOLIC AND DIASTOLIC CHF CONTINUE HOME MEDS STABLE HYPOTHYROIDISM euthyroid TSH/T4 normal DVT prophylaxis SCDs Code status Full Code Disposition lives alone at home PT/OT eval social service for d/c planning Vital Signs: Date Time Temp Pulse Resp B/P Pulse Ox O2 Delivery O2 Flow Rate FiO2 12/17/16 11:04 Room Air 12/17/16 00:42 36.5 65 18 152/76 97 Room Air 12/16/16 23:59 Room Air 12/16/16 19:28 Room Air 12/16/16 15:57 36.3 62 20 138/75 99 Lab Results: Results Past 24 Hours Test 12/16/16 16:54 12/16/16 20:36 12/17/16 01:14 12/17/16 05:29 Range/Units Bedside Glucose 95 195 213 70-90 mg/dl White Blood Count 6.73 4.8-10.8 K/uL Red Blood Count 3.54 4.2-5.4 M/uL Hemoglobin 11.0 12.0-16.0 g/dL Hematocrit 31.5 37-47 % Mean Corpuscular Volume 89.0 80-100 fL Mean Corpuscular Hemoglobin 31.1 25-34 pg Mean Corpuscular Hemoglobin Concent 34.9 32-36 g/dl Platelet Count 217 130-400 K/uL Neutrophils (%) (Auto) 47.6 % Lymphocytes (%) (Auto) 31.6 % Monocytes (%) (Auto) 14.0 % Eosinophils (%) (Auto) 5.9 % Basophils (%) (Auto) 0.6 % Neutrophils # (Auto) 3.20 1.4-6.5 K/uL Lymphocytes # (Auto) 2.13 1.2-3.4 K/uL Monocytes # (Auto) 0.94 0.11-0.59 K/uL Eosinophils # (Auto) 0.40 0-0.5 K/uL Basophils # (Auto) 0.04 0-0.2 K/uL Immature Granulocyte % (Auto) 0.3 % Immature Granulocyte # (Auto) 0.02 0.00-0.02 K/uL Sodium Level 142 136-145 mmol/L Potassium Level 3.8 3.5-5.1 mmol/L Chloride Level 108 98-107 mmol/L Carbon Dioxide Level 25 21-32 mmol/L Anion Gap 9.0 3-11 mmol/L Blood Urea Nitrogen 52 7-18 mg/dl Creatinine 2.00 0.60-1.20 mg/dl Est Creatinine Clear Calc Drug Dose 20.0 ml/min Estimated GFR () 26.3 Estimated GFR (Non- 22.7 BUN/Creatinine Ratio 26.2 10-20 Random Glucose 139 70-99 mg/dl Calcium Level 8.5 8.5-10.1 mg/dl Test 12/17/16 07:49 12/17/16 11:30 Range/Units Bedside Glucose 122 334 70-90 mg/dl
[2016-12-17 15:54] VITALS: BP 109/65; PULSE 63; TEMP 36.5; O2SAT 99
[2016-12-17] MEDS: PRAVASTATIN SOD 40 MG TAB PO SCH (17:45)
[2016-12-17] MEDS: QUETIAPINE FUMARATE 25 MG TAB PO SCH (20:30)
[2016-12-18 00:06] VITALS: BP 126/69; PULSE 63; TEMP 37.1; O2SAT 97
[2016-12-18] MEDS: LEVOTHYROXINE 50 MCG TAB PO SCH (06:24)
[2016-12-18 07:53] LABS: HEMATOCRIT 32.1 % (37-47); MEAN CELL VOLUME 89.9 fL (80-100); MEAN CORPUSCULAR HEMOGLOBIN 30.5 pg (25-34); MEAN PLATELET VOLUME 11.2 fL (7.4-10.4); PLATELET COUNT 224 K/uL (130-400); RED BLOOD COUNT 3.57 M/uL (4.2-5.4); WHITE BLOOD COUNT 5.91 K/uL (4.8-10.8)
[2016-12-18] MEDS: DOCUSATE SODIUM/SENNA 50/8.6MG TAB PO SCH (08:00)
[2016-12-18] MEDS: FLUTICASONE PROPIONATE NA SPR 16 GM BTL NAE SCH (08:13)
[2016-12-18] MEDS: DORZOLAMIDE/TIMOLOL 22.3/6.8MG/ML 10 ML BTL OP SCH (08:13)
[2016-12-18] MEDS: NYSTATIN/TRIAMCINOLONE OINT 15 GM TUBE EXT SCH (08:13)
[2016-12-18] MEDS: LOSARTAN POTASSIUM 25 MG TAB PO SCH (08:13)
[2016-12-18] MEDS: ASPIRIN 81 MG ECTAB PO SCH (08:13)
[2016-12-18] MEDS: FAMOTIDINE 20 MG TAB PO SCH (08:14)
[2016-12-18] MEDS: ISOSORBIDE MONONITRATE 60 MG TABCR PO SCH (08:14)
[2016-12-18] MEDS: FUROSEMIDE 40 MG TAB PO SCH (08:14)
[2016-12-18] MEDS: AMLODIPINE BESYLATE 5 MG TAB PO SCH (08:14)
[2016-12-18] MEDS: CALCITRIOL 0.25 MCG CAP PO SCH (08:15)
[2016-12-18] MEDS: CLOPIDOGREL BISULFATE 75 MG TAB PO SCH (08:15)
[2016-12-18] MEDS: CHOLECALCIFEROL 1000 INTER.UNIT TAB PO SCH (08:15)
[2016-12-18] MEDS: METOPROLOL SUCC 50MG EXT REL TAB PO SCH (08:16)
[2016-12-18] MEDS: INSULIN ASPART 100 UNITS/ML 3 ML PEN SC SCH ×2 (08:21→12:39)
[2016-12-18] MEDS: INSULIN GLARGINE SOLOSTAR 100 UNITS/ML 3 ML PEN SQ SCH (08:21)
[2016-12-18 08:26] LABS: BUN/CREATININE RATIO 24.7 (10-20); CALCIUM 8.6 mg/dl (8.5-10.1); MAGNESIUM 2.2 mg/dl (1.8-2.4); POTASSIUM 3.8 mmol/L (3.5-5.1)
[2016-12-18 08:27] LABS: PHOSPHORUS 3.3 mg/dl (2.5-4.9)
[2016-12-18 08:28] VITALS: BP 160/72; PULSE 65; TEMP 37; O2SAT 95
--- NOTE | 2016-12-18 09:29 | Psychiatric Progress Notes ---
Psychiatric Progress Note Date of Service Dec 18, 2016. Notes ID: Patient reviewed/seen with liaison nurse. Interim progress reviewed. CC: sleep improved HPI: denies strong. calm/cooperative with care. Tolerating Seroquel and reports improvement. ROS: denies physical complaints MSE: alert, cooperative, speech normal, thoughts concrete but reality based, no SI/HI/strong/del. Imp: AMS--likely back to baseline Plan: patient desires to maintain her independence, she is aware I recommend she have someone assist with meals/meds and supervision at least overnight. Still agrees that would accept home health no changes in Seroquel dosing, doing well in structure of hospital, f/u with PCP or other provider to monitor her dementia, no acute indication for mac psych
[2016-12-18 11:31] VITALS: BP 160/72; PULSE 65; TEMP 37; O2SAT 95
--- NOTE | 2016-12-18 11:46 | Progress Note ---
Internal Med Progress Note Date of Service: Dec 18, 2016. Provider Documentation: SUBJECTIVE: The patient was seen and examined Feels better and denies any more Hallucinations Remains stable to be discharged Denies any complaints OBJECTIVE: Vital Signs-as noted below Exam: General-No distress at rest Eyes-normal ENT-normal Neck-Supple Lungs-Clear to auscultate bilaterally Heart-Regular,no murmur Abdomen-Benign,no masses,bowel sound present Extremities-No edema Neuro-AA Lab data as noted below. ASSESSMENT & PLAN: 81 year old female with history of CAD, DM, HTN, other problems below presenting with visual and auditory hallucinations. HALLUCINATIONS- AUDITORY AND VISUAL No signs of infection and or Encephalopathy Labs unremarkable,ammonia levels normal,TSH normai,Normal Vit b12 and Folate Neuro work up done 08/28, unrevealing Psychiatry consulted and started on Seroquel. Clinically better and symptomatically better Denies any more symptoms Discussed with the POA Will discharge today HISTORY OF CAD Stable on Aspirin, Plavix, Imdur, Losartan, Metoprolol No acute issue DM 2 On Lantus BID ISS will monitor HYPERTENSION stable on Amlodipine and above medications CKD 4 Creatinine stable at 1.7 Worse today 12/17/16 Advised more fluid intake Creatinine Stable at 2.0 CHRONIC SYSTOLIC AND DIASTOLIC CHF CONTINUE HOME MEDS STABLE HYPOTHYROIDISM euthyroid TSH/T4 normal DVT prophylaxis SCDs Code status Full Code Disposition Lives alone at home PT/OT evaluation performed Social service for d/c planning Can be discharged home with Home health services Vital Signs: Date Time Temp Pulse Resp B/P Pulse Ox O2 Delivery O2 Flow Rate FiO2 12/18/16 11:31 37.0 65 20 95 Room Air 12/18/16 10:02 Room Air 12/18/16 08:28 37.0 65 20 160/72 95 12/18/16 02:13 Room Air 12/18/16 00:06 37.1 63 18 126/69 97 Room Air 12/17/16 19:01 Room Air 12/17/16 15:54 36.5 63 20 109/65 99 Lab Results: Results Past 24 Hours Test 12/17/16 16:17 12/17/16 20:07 12/18/16 07:24 12/18/16 07:25 Range/Units Bedside Glucose 164 217 162 70-90 mg/dl White Blood Count 5.91 4.8-10.8 K/uL Red Blood Count 3.57 4.2-5.4 M/uL Hemoglobin 10.9 12.0-16.0 g/dL Hematocrit 32.1 37-47 % Mean Corpuscular Volume 89.9 80-100 fL Mean Corpuscular Hemoglobin 30.5 25-34 pg Mean Corpuscular Hemoglobin Concent 34.0 32-36 g/dl RDW Standard Deviation 44.4 36.4-46.3 fL RDW Coefficient of Variation 13.5 11.5-14.5 % Platelet Count 224 130-400 K/uL Mean Platelet Volume 11.2 7.4-10.4 fL Sodium Level 142 136-145 mmol/L Potassium Level 3.8 3.5-5.1 mmol/L Chloride Level 108 98-107 mmol/L Carbon Dioxide Level 22 21-32 mmol/L Anion Gap 12.0 3-11 mmol/L Blood Urea Nitrogen 49 7-18 mg/dl Creatinine 2.00 0.60-1.20 mg/dl Est Creatinine Clear Calc Drug Dose 20.0 ml/min Estimated GFR () 26.3 Estimated GFR (Non- 22.7 BUN/Creatinine Ratio 24.7 10-20 Random Glucose 153 70-99 mg/dl Calcium Level 8.6 8.5-10.1 mg/dl Phosphorus Level 3.3 2.5-4.9 mg/dl Magnesium Level 2.2 1.8-2.4 mg/dl
[2016-12-18] MEDS ORDERED: SRQ25 PO (11:48)
--- NOTE | 2016-12-18 11:52 | Discharge Instructions ---
Discharge Instructions Admission Reason for Admission: Hallucinations Discharge Discharge Diagnosis / Problem: Hallucinations Discharge Goals Goal(s): Prevent Disease Progression Activity Recommendations Activity Limitations: resume your previous activity . Instructions / Follow-Up Instructions / Follow-Up Dr La on 12/22 at 11:30AM Current Hospital Diet Patient's current hospital diet: AHA Diet (Heart Healthy), Diabetes Type 2 Diet Discharge Diet Recommended Diet: Diabetes Type 2 Diet Fluid Restriction: 2000 ml (8 cups) Pending Studies Studies pending at discharge: no Medical Emergencies . Who to Call and When: Medical Emergencies: If at any time you feel your situation is an emergency, please call 911 immediately. . Non-Emergent Contact Non-Emergency issues call your: Primary Care Provider . Past History Medical & Surgical History: (1) Hallucinations (2) Change in mental status (3) Toxic nodular goiter (4) Diabetes mellitus type 2 in nonobese (5) GERD (gastroesophageal reflux disease) (6) Generalized osteoarthritis (7) Coronary atherosclerosis (8) HTN (hypertension) (9) Hypothyroidism . "Provider Documentation" section prepared by Mandy Hollis. VTE Core Measure Inpt VTE Proph given/why not?: SCD's
--- NOTE | 2016-12-19 08:14 | Discharge Summary ---
Discharge Summary Admission Date: Dec 14, 2016 at 19:59 Discharge Date: Dec 18, 2016 Discharge Disposition: Home with services Principal Diagnosis: Hallucinations Secondary Diagnoses/Problems: Please see H&P Consultations: Psychiatry Medication Reconciliation New Medications: Quetiapine Fumarate (Quetiapine Fumarate) 25 Mg Tab 12.5 MG PO HS for 30 Days, #15 TAB Continued Medications: Acetaminophen (Tylenol) 325 Mg Tab 650 MG PO Q4H PRN for Pain or Fever for 30 Days, #240 TAB Amlodipine (Norvasc) 10 Mg Tab 10 MG PO DAILY, #30 Aspirin (Aspirin 81) 81 Mg Tab 81 MG PO DAILY Atorvastatin (Lipitor) 40 Mg Tab 40 MG PO HS, TAB Calcitriol (Rocaltrol Cap) 0.25 Mcg Cap 1 CAP PO 3XWK for 30 Days, CAP 5 Refills Take MWF Cholecalciferol (Vitamin D) 1,000 Inter.unit Tab 1000 INTER.UNIT PO BID, TAB Clopidogrel (Plavix) 75 Mg Tab 75 MG PO DAILY Dextrose (Diabetic Use) (Glutose 15) 40 % Gel 1 EA PO DAILY PRN for Dorzolamide Hcl-Timolol Maleat (Cosopt Oph) 1 Mary Mary 1 DROPS OP BID, 3 Refills Famotidine (Pepcid) 20 Mg Tab 20 MG PO BID, TAB Fluticasone Propionate (Nasal) (Flonase) 50 Mcg/Act Spr 2 SPRAYS MARK BID Furosemide (Furosemide) 40 Mg Tab 40 MG PO QAM for 30 Days, #30 TAB 2 Refills Insulin Aspart (Novolog) 100 Units/Ml Inj 10 UNITS SQ TIDM Insulin Glargine (Lantus Solostar) 100 Unit/Ml Inj 13 UNITS SQ BID Ipratropium-Albuterol (Duoneb) 3 Ml Nebu 3 ML INH QIDR PRN for dyspnea for 30 Days Isosorbide Mononitrate Ext Rel (Imdur Ext Rel) 60 Mg Ertab 60 MG PO QAM, TAB Levothyroxine (Synthroid *) 0.05 Mg Tab 0.05 MG PO DAILY Losartan Potassium (Losartan Potassium) 25 Mg Tab 25 MG PO QAM for 30 Days, TAB Lutein (Lutein) 6 Mg Tab 1 CAP PO DAILY Metoprolol Succinate (Toprol Xl) 200 Mg Tab 200 MG PO DAILY, #30 Nitroglycerin (Nitrostat) 0.4 Mg Tab 0.4 MG UT PRN for Chest Pain, 0 Refills One tablet under tongue if needed for chest pain. May repeat 3 times. If chest pain continues, call 911. Nystatin/Triamcinolone (Mycogen ||) Oint 1 APPLN TOP BID APPLY TO CONI AREA Sennosides-Docusate Sodium (Senna S) 1 Tab Tab 1 TAB PO QD, #30 Admission Information HPI (per Admitting provider): 81 year old female with history of CAD, DM, HTN, other problems below presenting with visual and auditory hallucinations. Patient follows with Dr. La. She was admitted for evaluation of hallucinations last August 2016. Work up was performed and Psychiatry and Neurology was consulted. At that time, hallucinations was felt to be likely due to her Oxycodone and Gabapentin. Work up was otherwise unrevealing. She was discharged to [facility] and ultimately weaned off Oxycodone and Gabapentin. Patient returned home a month later. She lives by herself and her nephew checks on her few times a week, also manages her medications. For the past weeks, patient noted that she has been having more visual and auditory hallucinations- nurse putting something in her nose, hearing voices. Patient's nephew adds that about a month ago, patient called the police as she thought somebody might be entering her house. She saw Dr. La - Urine culture drawn and is negative for UTI. Today, she woke up and saw little girls around her bed. Dr. La advised her to go to ER. At the ER, patient was afebrile, VS stable. CT head no acute process. Crea is stable, Blood work also unrevealing including TSH, Ammonia. On exam, patient oriented x 3, not in distress, comfortable. She is frustrated , saying "they took me all my pain medicines and this is still going on." Denies other symptoms. 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 (13) Lumbago Status: Chronic (14) Sciatica Status: Chronic (15) 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 Status: Chronic (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 Surgical Problems: (1) H/O esophagogastroduodenoscopy Status: Chronic (2) H/O partial thyroidectomy Permanent Comment: 2002 Status: Chronic (3) H/O total thyroidectomy Permanent Comment: 2004 Status: Chronic (4) History of angioplasty of peripheral vessel Permanent Comment: Left Fem-pop bypass 2005 Status: Chronic (5) History of mastectomy Permanent Comment: 2006, right breast Status: Chronic (6) S/P cataract surgery Permanent Comment: 1994 Status: Chronic (7) S/P T&A (status post tonsillectomy and adenoidectomy) Status: Chronic Family History Diabetes mellitus BROTHER SISTER FH: CAD (coronary artery disease) FATHER FH: GI cancer MOTHER (Colon CA) FH: cancer BROTHER (Brain) Stroke FATHER Social History Smoking Status: Never Smoker Drug Use: none Marital Status: single Housing status: lives alone Occupational Status: retired Immunizations History of Influenza Vaccine: N/A Influenza Vaccine Date: Sep 06, 2005 History of Tetanus Vaccine?: Yes History of Pneumococcal: Yes Pneumococcal Date: Jan 19, 2010 History of Hepatitis B Vaccine: Unknown Multi-Drug Resistant Organisms History of MDRO: No Allergies Coded Allergies: Adhesives (Verified Allergy, Unknown, 12/14/16) Brimonidine (Verified Allergy, Unknown, 12/14/16) Latex1 -Allergic Contact Dermititis (Verified Allergy, Unknown, 12/14/16) Methadone (Verified Allergy, Unknown, 12/14/16) Rofecoxib (Verified Allergy, Unknown, 12/14/16) Propoxyphene (Verified Adverse Reaction, Mild, 12/14/16) LIGHTHEADED Sulfa Antibiotics (Verified Adverse Reaction, Unknown, NAUSEA/VOMITING TO SULFA DRUGS, 12/14/16) Home Medications Scheduled Amlodipine (Norvasc), 10 MG PO DAILY Aspirin (Aspirin 81), 81 MG PO DAILY Atorvastatin (Lipitor), 40 MG PO HS Calcitriol (Rocaltrol Cap), 1 CAP PO 3XWK Cholecalciferol (Vitamin D), 1,000 INTER.UNIT PO BID Clopidogrel (Plavix), 75 MG PO DAILY Dorzolamide Hcl-Timolol Maleat (Cosopt Oph), 1 DROPS OP BID Famotidine (Pepcid), 20 MG PO BID Fluticasone Propionate (Nasal) (Flonase), 2 SPRAYS MARK BID Furosemide (Furosemide), 40 MG PO QAM Insulin Aspart (Novolog), 10 UNITS SQ TIDM Insulin Glargine (Lantus Solostar), 13 UNITS SQ BID Isosorbide Mononitrate Ext Rel (Imdur Ext Rel), 60 MG PO QAM Levothyroxine (Synthroid *), 0.05 MG PO DAILY Losartan Potassium (Losartan Potassium), 25 MG PO QAM Lutein (Lutein), 1 CAP PO DAILY Metoprolol Succinate (Toprol Xl), 200 MG PO DAILY Nitroglycerin (Nitrostat), 0.4 MG UT PRN Nystatin/Triamcinolone (Mycogen ||), 1 APPLN TOP BID Sennosides-Docusate Sodium (Senna S), 1 TAB PO QD Scheduled PRN Acetaminophen (Tylenol), 650 MG PO Q4H PRN for Pain or Fever Dextrose (Diabetic Use) (Glutose 15), 1 EA PO DAILY PRN for Ipratropium-Albuterol (Duoneb), 3 ML INH QIDR PRN for dyspnea Review of Systems Constitutional- no fever; no weight loss Eyes- no acute visual changes ENT- no sinus drainage; no pharyngitis Pulmonary- no cough, no wheezing, no shortness of breath Cardiac- no chest pain, no palpitations, no orthopnea, no dependent edema GI- no nausea, no vomiting, no diarrhea, no melena, no hematochezia - no dysuria, no hematuria Musculoskeletal- no arthralgias, no myalgias Derm- no rashes, no new skin lesions, no changing skin lesions Hematologic- no unusual bruising, no unusual bleeding Lymphatics- no adenopathy Endocrine- no polyuria or polydipsia; no heat or cold intolerance Neuro- no headaches, no focal neurologic symptoms Psych- (+) as noted above, no anxiety, no depression Physical Ex - H&P Physical Exam Vital Signs Date Time Temp Pulse Resp B/P Pulse Ox O2 Delivery O2 Flow Rate FiO2 12/14/16 19:09 70 19 169/81 97 Room Air 12/14/16 18:23 58 20 147/66 97 Room Air 12/14/16 17:34 62 12/14/16 15:58 36.3 68 19 125/74 96 Room Air General Appearance: WD/WN, no apparent distress Head: normocephalic, atraumatic Eyes: normal inspection, PERRL, EOMI ENT: normal ENT inspection, hearing grossly normal, pharynx normal Neck: supple, no adenopathy, thyroid normal, no JVD, trachea midline Respiratory/Chest: chest non-tender, lungs clear, normal breath sounds, no respiratory distress, no accessory muscle use Cardiovascular: regular rate, rhythm, no edema, no gallop, no murmur Abdomen/GI: normal bowel sounds, non tender, soft Back: normal inspection, no CVA tenderness Extremities/Musculoskelatal: normal inspection, no calf tenderness, normal capillary refill, no pedal edema, normal range of motion Neurologic/Psych: check examiner II-XII nml as tested, no motor/sensory deficits, alert, normal mood/affect, normal reflexes, oriented x 3 Skin: normal color, warm/dry, no rash Lymphatic: no adenopathy Diagnostics - H&P Diagnostics Laboratory Results Results Past 24 Hours Test 12/14/16 16:55 12/14/16 17:29 Range/Units Urine Color YELLOW Urine Appearance CLEAR CLEAR Urine pH 5.0 4.5-7.5 Urine Specific [place] 1.007 1.000-1.030 Urine Protein NEG NEG Urine Glucose (UA) NEG NEG Urine Ketones NEG NEG Urine Occult Blood NEG NEG Urine Nitrite NEG NEG Urine Bilirubin NEG NEG Urine Urobilinogen NEG NEG Urine Leukocyte Esterase NEG NEG White Blood Count 8.36 4.8-10.8 K/uL Red Blood Count 3.80 4.2-5.4 M/uL Hemoglobin 11.9 12.0-16.0 g/dL Hematocrit 34.4 37-47 % Mean Corpuscular Volume 90.5 80-100 fL Mean Corpuscular Hemoglobin 31.3 25-34 pg Mean Corpuscular Hemoglobin Concent 34.6 32-36 g/dl Platelet Count 255 130-400 K/uL Mean Platelet Volume 11.1 7.4-10.4 fL Neutrophils (%) (Auto) 61.7 % Lymphocytes (%) (Auto) 26.7 % Monocytes (%) (Auto) 7.7 % Eosinophils (%) (Auto) 3.0 % Basophils (%) (Auto) 0.5 % Neutrophils # (Auto) 5.17 1.4-6.5 K/uL Lymphocytes # (Auto) 2.23 1.2-3.4 K/uL Monocytes # (Auto) 0.64 0.11-0.59 K/uL Eosinophils # (Auto) 0.25 0-0.5 K/uL Basophils # (Auto) 0.04 0-0.2 K/uL RDW Standard Deviation 44.5 36.4-46.3 fL RDW Coefficient of Variation 13.6 11.5-14.5 % Immature Granulocyte % (Auto) 0.4 % Immature Granulocyte # (Auto) 0.03 0.00-0.02 K/uL Echinocytes 1+ Venous Blood pH 7.43 7.36-7.41 Venous Blood Partial Pressure CO2 37 38.0-50.0 mmHg Venous Blood Partial Pressure O2 34 mmHg Venous Blood HCO3 24 mmol/L Venous Blood Oxygen Saturation 65.6 % Venous Blood Base Excess -0.3 mmol/L Sodium Level 139 136-145 mmol/L Potassium Level 4.1 3.5-5.1 mmol/L Chloride Level 105 98-107 mmol/L Carbon Dioxide Level 21 21-32 mmol/L Anion Gap 13.0 3-11 mmol/L Blood Urea Nitrogen 43 7-18 mg/dl Creatinine 2.00 0.60-1.20 mg/dl Est Creatinine Clear Calc Drug Dose 20.0 ml/min Estimated GFR () 26.3 Estimated GFR (Non- 22.7 BUN/Creatinine Ratio 21.4 10-20 Random Glucose 173 70-99 mg/dl Calcium Level 8.7 8.5-10.1 mg/dl Total Bilirubin 0.4 0.2-1 mg/dl Aspartate Amino Transf (AST/SGOT) 18 15-37 U/L Alanine Aminotransferase (ALT/SGPT) 21 12-78 U/L Alkaline Phosphatase 112 45-117 U/L Ammonia 15.0 11-32 umol/L Troponin I < 0.015 0-0.045 ng/ml Total Protein 7.4 6.4-8.2 gm/dl Albumin 3.4 3.4-5.0 gm/dl Globulin 4.0 2.5-4.0 gm/dl Albumin/Globulin Ratio 0.9 0.9-2 Thyroid Stimulating Hormone (TSH) 1.940 0.300-4.500 uIu/ml Free Thyroxine 1.33 0.80-1.60 ng/dl Diagnostic Radiology CT head: Findings: The paranasal sinuses and mastoid air cells are clear. The calvarium and skull base are intact. There is no mass, hematoma, midline shift, acute infarct. White matter hypodensity is nonspecific but suggestive of microvascular ischemic change. The ventricles and sulci demonstrate mild age-related involutional changes. Stable 3.1 cm arachnoid cyst within the left middle cranial fossa. Impression: No significant change compared to the prior study. No acute intracranial abnormality. CXR: IMPRESSION: No significant change compared to the prior study. No acute process. Stable mild cardiomegaly. EKG HR 60, sinus rhythm, with PVCs Impression - H&P Impression Assessment and Plan 81 year old female with history of CAD, DM, HTN, other problems below presenting with visual and auditory hallucinations. HALLUCINATIONS- AUDITORY AND VISUAL - at this time, no signs of underlying infection or possible metabolic encephalopathy - ammonia normal, crea at baseline TSH normal check Vit b12 and Folate - Neuro work up done 08/28, unrevealing - will re-consult Psych HISTORY OF CAD no cardiac symptoms continue Aspirin, Plavix, Imdur, Losartan, Metoprolol DM 2 continue Lantus BID ISS HYPERTENSION stable continue Amlodipine and above medications CKD 4 crea stable HYPOTHYROIDISM euthyroid TSH/T4 normal DVT prophylaxis SCDs Code status Full Code Disposition lives alone at home will need PT/OT eval will benefit from home health services ff up with PCP Dr. La VTE Prophylaxis VTE Risk Assessment Done? Y/N: Yes Risk Level: Moderate Physical Exam (per Admitting): General Appearance: WD/WN, no apparent distress Head: normocephalic, atraumatic Eyes: normal inspection, PERRL, EOMI ENT: normal ENT inspection, hearing grossly normal, pharynx normal Neck: supple, no adenopathy, thyroid normal, no JVD, trachea midline Respiratory/Chest: chest non-tender, lungs clear, normal breath sounds, no respiratory distress, no accessory muscle use Cardiovascular: regular rate, rhythm, no edema, no gallop, no murmur Abdomen/GI: normal bowel sounds, non tender, soft Back: normal inspection, no CVA tenderness Extremities/Musculoskelatal: normal inspection, no calf tenderness, normal capillary refill, no pedal edema, normal range of motion Neurologic/Psych: check examiner II-XII nml as tested, no motor/sensory deficits, alert , normal mood/affect, normal reflexes, oriented x 3 Skin: normal color, warm/dry, no rash Lymphatic: no adenopathy Hospital Course 81 year old female with history of CAD, DM, HTN, other problems below presenting with visual and auditory hallucinations. HALLUCINATIONS- AUDITORY AND VISUAL No signs of infection and or Encephalopathy Labs unremarkable,ammonia levels normal,TSH normai,Normal Vit b12 and Folate Neuro work up done 08/28, unrevealing Psychiatry consulted and started on Seroquel. Clinically better and symptomatically better Denies any more symptoms Discussed with the POA Will discharge today HISTORY OF CAD Stable on Aspirin, Plavix, Imdur, Losartan, Metoprolol No acute issue DM 2 On Lantus BID ISS will monitor HYPERTENSION stable on Amlodipine and above medications CKD 4 Creatinine stable at 1.7 Worse today 12/17/16 Advised more fluid intake Creatinine Stable at 2.0 CHRONIC SYSTOLIC AND DIASTOLIC CHF CONTINUE HOME MEDS STABLE HYPOTHYROIDISM euthyroid TSH/T4 normal DVT prophylaxis SCDs Code status Full Code Disposition Lives alone at home PT/OT evaluation performed Social service for d/c planning Can be discharged home with Home health services Total time spent on discharge = 35 minutes This includes examination of the patient, discharge planning, medication reconciliation, and communication with other providers. Discharge Instructions Admission Reason for Admission: Hallucinations Discharge Discharge Diagnosis / Problem: Hallucinations Discharge Goals Goal(s): Prevent Disease Progression Activity Recommendations Activity Limitations: resume your previous activity . Instructions / Follow-Up Instructions / Follow-Up Dr La on 12/22 at 11:30AM Current Hospital Diet Patient's current hospital diet: AHA Diet (Heart Healthy), Diabetes Type 2 Diet Discharge Diet Recommended Diet: Diabetes Type 2 Diet Fluid Restriction: 2000 ml (8 cups) Pending Studies Studies pending at discharge: no Medical Emergencies . Who to Call and When: Medical Emergencies: If at any time you feel your situation is an emergency, please call 911 immediately. . Non-Emergent Contact Non-Emergency issues call your: Primary Care Provider . Past History Medical & Surgical History: (1) Hallucinations (2) Change in mental status (3) Toxic nodular goiter (4) Diabetes mellitus type 2 in nonobese (5) GERD (gastroesophageal reflux disease) (6) Generalized osteoarthritis (7) Coronary atherosclerosis (8) HTN (hypertension) (9) Hypothyroidism . "Provider Documentation" section prepared by Mandy Hollis. VTE Core Measure Inpt VTE Proph given/why not?: SCD's <Electronically signed by Mandy Hollis M.D.> Additional Copies To Demond La MD
--- NOTE | 2016-12-20 12:40 | EDITING REQUIRED CODING QUERY ---
CODING QUERY To promote full compliance with coding requirements relating to patient care, provider participation is requested in all cases of head up operator uncertainty. Please assist us with the question(s) below: Coding Question(s): Patient admitted with auditory and visual hallucinations. Consult by Psychiatry indicated symptoms likely related to Dementia. Please indicate the diagnosis/etiology for patient's symptoms. Thanks for your help! Deep Newman [facility] Physician's Response(s): I will go by the Psychiatric assessment and recommendation. Principal Diagnosis: "_that condition established after study, to be chiefly responsible for occasioning the admission of the patient to the hospital for care." Co-Existing Principal Diagnosis: "_when two or more diagnoses equally meet the criteria for principal diagnosis as determined by the circumstances of admission, diagnostic work up, and/or therapy provided, and the Alphabetic Index, Tabular List, or another coding guideline does not provide sequencing direction, any one of the diagnoses may be sequenced first." "When the physician has documented what appears to be a current diagnosis in the body of the record, but has not included the diagnosis in the final diagnostic statement, the physician should be asked whether the diagnosis should be added." (Source Coding [facility] 2 QTR90. p3-4)
[2017-02-11] MEDS ORDERED: ASPI-435 PO (02:42)
[2017-02-11] MEDS ORDERED: AMLO-114 PO (02:49)
[2017-02-11] MEDS ORDERED: METO1TAB70 PO (02:49)
[2017-02-11] MEDS ORDERED: DORZ1SOL6 OP (02:56)
[2017-02-11] MEDS ORDERED: NTRGSL/4 UT (05:13)
[2017-02-11] MEDS ORDERED: ISOS60TA25 PO (07:07)
[2017-02-11] MEDS ORDERED: SYN50 PO (10:39)
[2017-02-11] MEDS ORDERED: CLOP1TAB15 PO (10:39)
[2017-02-11] MEDS ORDERED: FLUT0.0529 NAE (13:48)
[2017-02-11] MEDS ORDERED: LUTE1TAB2 PO (14:12)
[2017-02-11] MEDS ORDERED: FAMO20TA11 PO (14:12)
[2017-02-11] MEDS ORDERED: INSDGIPEN SQ (14:13)
[2017-02-11] MEDS ORDERED: CALC0.2510 PO (16:14)
[2017-02-11] MEDS ORDERED: NVLG SQ (16:43)
[2017-08-02] MEDS ORDERED: LSX40 PO (14:30)
[2017-08-05] MEDS ORDERED: FURO-85 PO (10:07)
== END 2016-12-18 14:00 | disposition home health service (06) | DRG 884 ==
LOC: ENRESERVTM → ENRESERVDT → C.EDB 15:57 → C.4E 19:59
PROVIDERS: ADMIT Internal Medicine; ATTEND Internal Medicine
DX: F03.90 Unspecified dementia, unspecified severity, without behavioral disturbance, psychotic disturbance, mood disturbance, and anxiety (principal); N18.4 Chronic kidney disease, stage 4 (severe); I50.42 Chronic combined systolic (congestive) and diastolic (congestive) heart failure; R44.0 Auditory hallucinations; I12.9 Hypertensive chronic kidney disease with stage 1 through stage 4 chronic kidney disease, or unspecified chronic kidney disease; R44.1 Visual hallucinations; M54.2 Cervicalgia; E11.21 Type 2 diabetes mellitus with diabetic nephropathy; I25.10 Atherosclerotic heart disease of native coronary artery without angina pectoris; E78.5 Hyperlipidemia, unspecified; H40.9 Unspecified glaucoma; K21.9 Gastro-esophageal reflux disease without esophagitis; K58.9 Irritable bowel syndrome, unspecified; Z79.82 Long term (current) use of aspirin; Z88.2 Allergy status to sulfonamides; E03.9 Hypothyroidism, unspecified; I25.2 Old myocardial infarction; Z91.14 Patient's other noncompliance with medication regimen

== ENCOUNTER 2017-02-11 21:06 | Emergency (ER) | payer OTHER, MEDICARE ==
[~2017-02-11] VITALS: Ht 152.4 cm; Wt 78.6 kg
[~2017-02-11 21:06] MED LIST changes: +AMLO-114 PO; +ASPI-435 PO; +CALC0.2510 PO; +CLOP1TAB15 PO; +DORZ1SOL6 OP; +FAMO20TA11 PO; +FLUT0.0529 NAE; -GABA-112 PO; +INSDGIPEN SQ; +ISOS60TA25 PO; +LUTE1TAB2 PO; +METO-648 PO; +NTRGSL/4 UT; +NVLG SQ; -NVLGIPEN SC; +SRQ25 PO; +SYN50 PO
[2017-02-11 21:09] VITALS: TEMP 36.6; Ht 152.4 cm; Wt 78.6 kg
[2017-02-11] MEDS ORDERED: SODIUM CHLORIDE 0.9% 1000ML 1,000 ML IV STA (21:22)
--- NOTE | 2017-02-11 22:02 | DIAGNOSTIC IMAGING REPORT ---
CHEST ONE VIEW PORTABLE CLINICAL HISTORY: Weakness COMPARISON STUDY: December 14, 2016 FINDINGS: The heart is borderline enlarged. There is no failure. There is no focal pulmonary consolidation. There are no pleural effusions.[ IMPRESSION: No active disease in the chest. Electronically signed by: Abram Dawson M.D. 02/11/2017 10:01 PM Dictated Date/Time: 02/11/2017 10:00 PM
[2017-02-11 22:10] LABS: URINE APPEARANCE CLEAR (CLEAR); URINE BILIRUBIN NEG (NEG); URINE COLOR YELLOW; URINE NITRITE NEG (NEG); URINE SPECIFIC GRAVITY 1.018 (1.000-1.030); UROBILINOGEN NEG (NEG)
[2017-02-11 22:12] LABS: MANUAL MICROSCOPIC REQUIRED? NO; REVIEW REQ? NO
[2017-02-11 22:18] LABS: BASO % 0.5 %; BASO ABS # 0.04 K/uL (0-0.2); COMPLETE YES; EOS % 3.6 %; HEMATOCRIT 35.3 % (37-47); IG% 0.3 %; LYMPH % 24.3 %; LYMPH ABS # 2.13 K/uL (1.2-3.4); MEAN CELL VOLUME 88.5 fL (80-100); MEAN CORPUSCULAR HEMOGLOBIN 30.8 pg (25-34); MEAN CORPUSCULAR HGB CONC 34.8 g/dl (32-36); MEAN PLATELET VOLUME 10.8 fL (7.4-10.4); NEUT % 62.3 %; PLATELET COUNT 270 K/uL (130-400); RED BLOOD COUNT 3.99 M/uL (4.2-5.4); WHITE BLOOD COUNT 8.77 K/uL (4.8-10.8)
[2017-02-11] MEDS ORDERED: DOCU-94 PO (22:21)
[2017-02-11] MEDS ORDERED: PRAV40TA2 PO (22:21)
--- NOTE | 2017-02-11 22:28 | DIAGNOSTIC IMAGING REPORT ---
CT HEAD WITHOUT CONTRAST (CT) CLINICAL HISTORY: Change in mental status. Weakness. COMPARISON STUDY: 12-29 TECHNIQUE: Axial CT of the brain is performed from the vertex to the skull base. IV contrast was not administered for this examination. CT DOSE: 537.48 mGy.cm FINDINGS: There is a stable left anterior temporal arachnoid cyst.. There is no CT evidence of acute cortical infarction. There is no evidence of midline shift. There is no acute hemorrhage. No calvarial fractures are visualized. There are patchy white matter hypodensities likely on a small vessel basis. There is no evidence of pathologic ventricular dilatation. There is no evidence of acute sinusitis IMPRESSION: No acute intracranial findings Electronically signed by: Abram Dawson M.D. 02/11/2017 10:27 PM Dictated Date/Time: 02/11/2017 10:26 PM
[2017-02-11 22:29] LABS: INR 0.9 (0.9-1.1); PARTIAL THROMBOPLASTIN RATIO 0.9; PROTHROMBIN TIME (PATIENT) 10.1 SECONDS (9.0-12.0)
[2017-02-11 22:46] VITALS: O2SAT 96
[2017-02-11 22:46] LABS: BUN/CREATININE RATIO 19.2 (10-20); CALCIUM 8.9 mg/dl (8.5-10.1); CREATININE 2.2 mg/dl (0.60-1.20); MAGNESIUM 2.3 mg/dl (1.8-2.4); POTASSIUM 4.3 mmol/L (3.5-5.1)
[2017-02-11 22:55] LABS: THYROID STIMULATING HORMONE 2.39 uIu/ml (0.300-4.500)
[2017-02-11] MEDS ORDERED: FLUCONAZOLE 50 MG TAB PO ONE (23:45)
[2017-02-12 00:18] VITALS: BP 175/90; PULSE 65; O2SAT 97
--- NOTE | 2017-02-12 01:42 | EMERGENCY ROOM VISIT NOTE ---
History Report prepared by Peter: Jameson Vera Under the Supervision of: Dr. Nile Gibbons M.D. First contact with patient: 21:22 Chief Complaint: ALTERED MENTAL STATUS Stated Complaint: HALLUCINATION History of Present Illness The patient is an 81 year old female who presents to the Emergency Room with complaints of worsening hallucinations for the past few months. The patient describes seeing things in her sleep. She notes one night she woke up and turned the light on. She saw two men with hats standing above her head. When she got up to confront them, they disappeared. Another time, she says she saw a nurse come in while she was sleeping and she felt the nurse taking her blood. Per patient's family, the patient has been seeing and hearing things that are not there; however, the patient does not appear confused. Per patient's family, her hallucinations have been more frequent recently. She presents to the ED with her nephew julee because she had called him earlier crying because she was seeing things that weren't there. The patient denies any psychiatric history. Pt denies LOC, headache, fevers, chills, diaphoresis, visual changes, neck pain, chest pain, breathing difficulties, nausea, vomiting, abdominal pain , back pain, melena, hematochezia, urinary symptoms, numbness, weakness, lymphadenopathy, rash, or other complaints. Source of History: patient, family History Limited By: other (confusion) Onset: past few months Position: other (global) Timing: worsening Review of Systems See HPI for pertinent positives and negatives. A total of ten systems were reviewed and were otherwise negative. 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 Surgical Problems: (1) H/O esophagogastroduodenoscopy (2) H/O partial thyroidectomy (3) H/O total thyroidectomy (4) History of angioplasty of peripheral vessel (5) History of mastectomy (6) S/P cataract surgery (7) S/P T&A (status post tonsillectomy and adenoidectomy) Family History Diabetes mellitus BROTHER SISTER FH: CAD (coronary artery disease) FATHER FH: GI cancer MOTHER (Colon CA) FH: cancer BROTHER (Brain) Stroke FATHER Social History Smoking Status: Never Smoker Drug Use: none Marital Status: single Housing Status: lives alone Occupation Status: retired Current/Historical Medications Scheduled Amlodipine (Norvasc), 10 MG PO DAILY Aspirin (Aspirin 81), 81 MG PO DAILY Calcitriol (Rocaltrol Cap), 1 CAP PO 3XWK Cholecalciferol (Vitamin D), 2,000 INTER.UNIT PO BID Clopidogrel (Plavix), 75 MG PO DAILY Dorzolamide Hcl-Timolol Maleat (Cosopt Oph), 1 DROPS OP BID Famotidine (Pepcid), 20 MG PO BID Furosemide (Furosemide), 40 MG PO QAM Insulin Aspart (Novolog), 10 UNITS SQ TIDM Insulin Glargine (Lantus Solostar), 13 UNITS SQ BID Isosorbide Mononitrate Ext Rel (Imdur Ext Rel), 60 MG PO QAM Levothyroxine (Synthroid *), 0.05 MG PO DAILY Losartan Potassium (Losartan Potassium), 25 MG PO QAM Lutein (Lutein), 1 CAP PO DAILY Metoprolol Succinate (Toprol Xl), 200 MG PO DAILY Nitroglycerin (Nitrostat), 0.4 MG UT PRN Pravastatin Sodium (Pravastatin Sodium), 40 MG PO QPM Quetiapine Fumarate (Quetiapine Fumarate), 12.5 MG PO HS Scheduled PRN Acetaminophen (Tylenol), 650 MG PO Q4H PRN for Pain or Fever Docusate Sodium (Colace), 1 CAP PO BID PRN for Constipation Fluticasone Propionate (Nasal) (Flonase), 2 SPRAYS MARK BID PRN for dryness Allergies Coded Allergies: Adhesives (Verified Allergy, Unknown, 12/14/16) Brimonidine (Verified Allergy, Unknown, 12/14/16) Latex1 -Allergic Contact Dermititis (Verified Allergy, Unknown, 12/14/16) Methadone (Verified Allergy, Unknown, 12/14/16) Rofecoxib (Verified Allergy, Unknown, 12/14/16) Propoxyphene (Verified Adverse Reaction, Mild, 12/14/16) LIGHTHEADED Sulfa Antibiotics (Verified Adverse Reaction, Unknown, NAUSEA/VOMITING TO SULFA DRUGS, 12/14/16) Physical Exam Vital Signs Date Time Temp Pulse Resp B/P Pulse Ox O2 Delivery O2 Flow Rate FiO2 02/12/17 00:18 65 18 175/90 97 02/11/17 22:46 96 Room Air 02/11/17 22:27 62 18 169/86 95 Room Air 02/11/17 21:41 68 02/11/17 21:09 36.6 71 20 157/75 97 Room Air Physical Exam GENERAL: Awake, alert, well-appearing, in no distress. Mildly demented sensorium. HENT: Normocephalic, atraumatic. Oropharynx unremarkable. EYES: Normal conjunctiva. Sclera non-icteric. NECK: Supple. No nuchal rigidity. FROM. No JVD. RESPIRATORY: Clear to auscultation. CARDIAC: Regular rate, normal rhythm. Extremities warm and well perfused. Pulses equal. ABDOMEN: Soft, non-distended. No tenderness to palpation. No rebound or guarding. No masses. RECTAL: Deferred. MUSCULOSKELETAL: Chest examination reveals no tenderness. The back is symmetrical on inspection without obvious abnormality. There is no CVA tenderness to palpation. No joint edema. : Yeast-like discharge present. LOWER EXTREMITIES: Calves are equal size bilaterally and non-tender. No edema. No discoloration. NEURO: Normal sensorium. No sensory or motor deficits noted. No current hallucinations or delusions. SKIN: No rash or jaundice noted. Medical Decision & Procedures ER Provider Diagnostic Interpretation: X ray results as stated below per my interpretation and radiologist interpretation. Other radiology results as stated below per my review and radiologist interpretation CT HEAD WITHOUT CONTRAST (CT) CLINICAL HISTORY: Change in mental status. Weakness. COMPARISON STUDY: 12-29 TECHNIQUE: Axial CT of the brain is performed from the vertex to the skull base. IV contrast was not administered for this examination. CT DOSE: 537.48 mGy.cm FINDINGS: There is a stable left anterior temporal arachnoid cyst.. There is no CT evidence of acute cortical infarction. There is no evidence of midline shift. There is no acute hemorrhage. No calvarial fractures are visualized. There are patchy white matter hypodensities likely on a small vessel basis. There is no evidence of pathologic ventricular dilatation. There is no evidence of acute sinusitis IMPRESSION: No acute intracranial findings Electronically signed by: Abram Dawson M.D. 02/11/2017 10:27 PM Dictated Date/Time: 02/11/2017 10:26 PM CHEST ONE VIEW PORTABLE CLINICAL HISTORY: Weakness COMPARISON STUDY: December 14, 2016 FINDINGS: The heart is borderline enlarged. There is no failure. There is no focal pulmonary consolidation. There are no pleural effusions.[ IMPRESSION: No active disease in the chest. Electronically signed by: Abram Dawson M.D. 02/11/2017 10:01 PM Dictated Date/Time: 02/11/2017 10:00 PM Laboratory Results 02/11/17 22:10 Red Blood Count 3.99, Mean Corpuscular Volume 88.5, Mean Corpuscular Hemoglobin 30.8, Mean Corpuscular Hemoglobin Concent 34.8, Mean Platelet Volume 10.8, Neutrophils (%) (Auto) 62.3, Lymphocytes (%) (Auto) 24.3, Monocytes (%) (Auto) 9.0, Eosinophils (%) (Auto) 3.6, Basophils (%) (Auto) 0.5, Neutrophils # (Auto) 5.46, Lymphocytes # (Auto) 2.13, Monocytes # (Auto) 0.79, Eosinophils # (Auto) 0.32, Basophils # (Auto) 0.04 02/11/17 22:10 Test 02/11/17 21:48 02/11/17 22:10 Urine Color YELLOW Urine Appearance CLEAR (CLEAR) Urine pH 5.0 (4.5-7.5) Urine Specific Perry 1.018 (1.000-1.030) Urine Protein NEG (NEG) Urine Glucose (UA) NEG (NEG) Urine Ketones NEG (NEG) Urine Occult Blood NEG (NEG) Urine Nitrite NEG (NEG) Urine Bilirubin NEG (NEG) Urine Urobilinogen NEG (NEG) Urine Leukocyte Esterase NEG (NEG) White Blood Count 8.77 K/uL (4.8-10.8) Red Blood Count 3.99 M/uL (4.2-5.4) Hemoglobin 12.3 g/dL (12.0-16.0) Hematocrit 35.3 % (37-47) Mean Corpuscular Volume 88.5 fL (80-100) Mean Corpuscular Hemoglobin 30.8 pg (25-34) Mean Corpuscular Hemoglobin Concent 34.8 g/dl (32-36) Platelet Count 270 K/uL (130-400) Mean Platelet Volume 10.8 fL (7.4-10.4) Neutrophils (%) (Auto) 62.3 % Lymphocytes (%) (Auto) 24.3 % Monocytes (%) (Auto) 9.0 % Eosinophils (%) (Auto) 3.6 % Basophils (%) (Auto) 0.5 % Neutrophils # (Auto) 5.46 K/uL (1.4-6.5) Lymphocytes # (Auto) 2.13 K/uL (1.2-3.4) Monocytes # (Auto) 0.79 K/uL (0.11-0.59) Eosinophils # (Auto) 0.32 K/uL (0-0.5) Basophils # (Auto) 0.04 K/uL (0-0.2) RDW Standard Deviation 41.5 fL (36.4-46.3) RDW Coefficient of Variation 12.9 % (11.5-14.5) Immature Granulocyte % (Auto) 0.3 % Immature Granulocyte # (Auto) 0.03 K/uL (0.00-0.02) Prothrombin Time 10.1 SECONDS (9.0-12.0) Prothromb Time International Ratio 0.9 (0.9-1.1) Activated Partial Thromboplast Time 24.4 SECONDS (21.0-31.0) Partial Thromboplastin Ratio 0.9 Anion Gap 12.0 mmol/L (3-11) Est Creatinine Clear Calc Drug Dose 18.3 ml/min Estimated GFR () 23.4 Estimated GFR (Non- 20.2 BUN/Creatinine Ratio 19.2 (10-20) Calcium Level 8.9 mg/dl (8.5-10.1) Magnesium Level 2.3 mg/dl (1.8-2.4) Total Bilirubin 0.3 mg/dl (0.2-1) Direct Bilirubin 0.1 mg/dl (0-0.2) Aspartate Amino Transf (AST/SGOT) 16 U/L (15-37) Alanine Aminotransferase (ALT/SGPT) 20 U/L (12-78) Alkaline Phosphatase 104 U/L (45-117) Total Protein 7.5 gm/dl (6.4-8.2) Albumin 3.9 gm/dl (3.4-5.0) Lipase 166 U/L (73-393) Thyroid Stimulating Hormone (TSH) 2.390 uIu/ml (0.300-4.500) Laboratory results reviewed by me Medications Administered Medications (Trade) Dose Ordered Sig/Mitch Route Start Time Stop Time Status Last Admin Dose Admin Sodium Chloride (Nss 1000ml) 1,000 ml @ 125 mls/hr Q8H STAT IV 02/11/17 21:22 02/12/17 00:47 DC 02/11/17 22:46 125 MLS/HR Fluconazole (Diflucan Tab) 150 mg NOW ONCE PO 02/11/17 23:45 02/11/17 23:46 DC 02/11/17 23:54 150 MG ECG Indication: altered mental status Rate (beats per minute): 69 Rhythm: normal sinus Findings: no acute ischemic change, no ectopy, other (LVH) ED Course 2156: The patient was evaluated in room C11. A complete history and physical exam was performed. 2121: Ordered NSS 1000 ml @ 125 mls/hr IV. 7: At this time, I discussed the patient's case with case management who had met with the patient. The Office of Aging has been involved and has a plan to check in in two days. The patient and the family don't necessarily want to be admitted to the hospital this evening. Case management will touch base with the Office of Aging tomorrow morning and update them on the patient's visit. 2345: Ordered Fluconazole 150 mg PO. 0022: I reevaluated the patient. Discussed results and discharge instructions: She verbalized understanding and agreement. The patient will follow up with her PCP and the Office of Aging tomorrow. The patient is ready for discharge. Medical Decision Triage Nursing notes reviewed. The patient's presentation and history were concerning for intermittent hallucinations Etiologies such as Dementia,metabolic, infection, hypo/hyperglycemia, electrolyte abnormalities, cardiac sources, intracerebral event, toxicologic, neurologic, as well as others were entertained. The patient is doing very well at this time. She had an unremarkable CBC, chemistry panel, urinalysis except for a mildly elevated creatinine but this is baseline.. The patient had an unremarkable head CT and chest x-ray. Case management met with the patient and family. They are not interested in placement at this time. The patient has been evaluated by office of aging. Services to begin the day after tomorrow. They did not wish to stay in the hospital. They were questioning if there was anything that could be done medication-bashir for the occasional hallucinations. I did discuss my reservations for this as the patient could have worsening mental status and would be at increased risk for falling. She should be followed up closely by her primary physician. The family felt comfortable with the patient being discharged. Case management will call the office tomorrow to help facilitate the appointment. Since the patient is doing very well at this time and has no symptoms I believe it is reasonable to continue to treat her as an outpatient. When the patient was having a urinalysis performed the nurse noted she had some vaginal irritation and discharge. On examination the patient has a candidal vaginitis. She was given a dose of Diflucan in the emergency department. Family states that she does have a prescription for this at home. By the evaluation outlined above other emergent etiologies such as those listed in the differential, as well as others, were deemed relatively unlikely. The patient and family were informed about the findings as listed above. All questions were answered and they were pleased with the treatment. Return instructions were outlined and the patient was discharged in stable condition. The patient was referred to her PCP this week for follow-up [] for a recheck of the current condition. The chart was completed utilizing [employer] Speech voice recognition software. Grammatical errors, random word insertions, pronoun errors, and incomplete sentences are an occasional consequence of this system due to software limitations, ambient noise, and hardware issues. Any formal questions or concerns about the content, text, or information contained within the body of this dictation should be directly addressed to the physician for clarification. Impression Primary Impression: Hallucination Additional Impression: Yeast infection Scribe Attestation The scribe's documentation has been prepared under my direction and personally reviewed by me in its entirety. I confirm that the note above accurately reflects all work, treatment, procedures, and medical decision making performed by me. Departure Information Dispostion Home / Self-Care Referrals Demond La MD (PCP) Forms HOME CARE DOCUMENTATION FORM, IMPORTANT VISIT INFORMATION Patient Instructions My [facility] Additional Instructions Continue current medications. Call Dr. La's office tomorrow for a follow-up appointment this week. If you have any problems making the appointment call back to the Emergency Room for assistance. Case management will be contacting office of aging as well as Dr. La's office in order to arrange close follow-up. Return to the ER for headache, passing out, difficulty breathing, fevers, numbness, tingling, worsening hallucinations, worsening of your condition, or as needed. Problem Qualifiers
[2017-08-02] MEDS ORDERED: LSX40 PO (14:30)
[2017-08-05] MEDS ORDERED: FURO-85 PO (10:07)
== END 2017-02-12 00:18 | disposition home or self-care (01) ==
LOC: C.EDB 21:07 → C.EDC 02-12 00:18
DX: R44.3 Hallucinations, unspecified (principal); B37.9 Candidiasis, unspecified; I50.9 Heart failure, unspecified; E11.9 Type 2 diabetes mellitus without complications; E78.5 Hyperlipidemia, unspecified; K21.9 Gastro-esophageal reflux disease without esophagitis; I10 Essential (primary) hypertension; E03.9 Hypothyroidism, unspecified; K58.9 Irritable bowel syndrome, unspecified; Z79.82 Long term (current) use of aspirin; Z79.4 Long term (current) use of insulin; Z79.899 Other long term (current) drug therapy

== ENCOUNTER 2017-06-22 17:09 | Emergency (ER) | payer OTHER, MEDICARE ==
[~2017-06-22] VITALS: Ht 152.4 cm; Wt 78.4 kg
[~2017-06-22 17:09] MED LIST changes: -ATOR-24 PO; -DEXT40GE2 PO; +DOCU-94 PO; -IPRASOL4 INH; -METO-648 PO; +METO1TAB70 PO; -NYSTOIN5 TOP; +PRAV40TA2 PO; -SENN-91 PO
[2017-06-22 17:16] VITALS: TEMP 36.7; Ht 152.4 cm; Wt 78.4 kg
[2017-06-22] MEDS ORDERED: SODIUM CHLORIDE 0.9% 1000ML 250 ML IV STA (17:40)
[2017-06-22] MEDS ORDERED: SODIUM CHLORIDE 0.9% 1000ML 1,000 ML IV STA (17:40)
--- NOTE | 2017-06-22 18:04 | DIAGNOSTIC IMAGING REPORT ---
CHEST ONE VIEW PORTABLE CLINICAL HISTORY: Chest pain and. COMPARISON STUDY: Radiograph February 11, 2017. FINDINGS: Lung volumes are at the lower limits of normal. This is unchanged. No pneumothorax or pleural effusion is present. There is no evidence of pulmonary edema. Linear bibasilar opacities suggest atelectasis. Mild cardiomegaly is unchanged. IMPRESSION: No acute cardiopulmonary findings. Electronically signed by: Randal Blevins M.D. 06/22/2017 6:03 PM Dictated Date/Time: 06/22/2017 6:01 PM
[2017-06-22] MEDS ORDERED: SYN50 PO (18:36)
[2017-06-22] MEDS ORDERED: SENN-65 PO (18:36)
[2017-06-22] MEDS ORDERED: FLUT0.15 NAE (18:36)
[2017-06-22] MEDS ORDERED: QUET1TAB30 PO ×2 (18:36)
[2017-06-22] MEDS ORDERED: NYSTCRE11 TOP (18:36)
[2017-06-22] MEDS ORDERED: FURO-85 PO (18:36)
[2017-06-22] MEDS ORDERED: CHOL100041 PO (18:36)
[2017-06-22] MEDS ORDERED: ACET-1311 PO (18:36)
[2017-06-22 19:22] LABS: BASO % 0.5 %; BASO ABS # 0.03 K/uL (0-0.2); COMPLETE YES; EOS % 3.7 %; HEMATOCRIT 36.5 % (37-47); IG% 0.5 %; LYMPH % 22.4 %; LYMPH ABS # 1.44 K/uL (1.2-3.4); MEAN CELL VOLUME 90.8 fL (80-100); MEAN CORPUSCULAR HEMOGLOBIN 30.8 pg (25-34); MEAN PLATELET VOLUME 11.3 fL (7.4-10.4); MONO % 11.8 %; NEUT % 61.1 %; PLATELET COUNT 272 K/uL (130-400); RED BLOOD COUNT 4.02 M/uL (4.2-5.4); WHITE BLOOD COUNT 6.43 K/uL (4.8-10.8)
[2017-06-22 19:37] LABS: BUN/CREATININE RATIO 17.6 (10-20); CALCIUM 9.1 mg/dl (8.5-10.1); CREATININE 2.4 mg/dl (0.60-1.20); POTASSIUM 4.6 mmol/L (3.5-5.1)
[2017-06-22 19:47] LABS: BETA-HYDROXYBUTYRATE 1.45 mg/dL (0.2-2.81)
[2017-06-22 19:49] LABS: ALKALINE PHOSPHATASE 103 U/L (45-117); ALT/SGPT 20 U/L (12-78); AST/SGOT 14 U/L (15-37)
[2017-06-22 20:59] LABS: CKMB/CK RATIO 1.9 (0-3.0)
[2017-06-22 21:47] LABS: URINE APPEARANCE CLEAR (CLEAR); URINE BILIRUBIN NEG (NEG); URINE COLOR YELLOW; URINE NITRITE NEG (NEG); URINE PH 5.5 (4.5-7.5); UROBILINOGEN NEG (NEG)
[2017-06-22 21:54] LABS: MANUAL MICROSCOPIC REQUIRED? NO; REVIEW REQ? NO
[2017-06-22 23:06] VITALS: BP 148/86; PULSE 76; O2SAT 98
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
[2017-08-02] MEDS ORDERED: LSX40 PO (14:30)
[2017-08-05] MEDS ORDERED: FURO-85 PO (10:07)
== END 2017-06-22 23:07 | disposition home or self-care (01) ==
LOC: EDBD 17:09 → C.EDB 17:11
DX: T23.002A Burn of unspecified degree of left hand, unspecified site, initial encounter (principal); T23.001A Burn of unspecified degree of right hand, unspecified site, initial encounter; X15.0XXA Contact with hot stove (kitchen), initial encounter; X10.2XXA Contact with fats and cooking oils, initial encounter; Y92.010 Kitchen of single-family (private) house as the place of occurrence of the external cause; Y93.G3 Activity, cooking and baking; R53.1 Weakness; E11.9 Type 2 diabetes mellitus without complications; I10 Essential (primary) hypertension; I25.10 Atherosclerotic heart disease of native coronary artery without angina pectoris; E78.5 Hyperlipidemia, unspecified; M15.9 Polyosteoarthritis, unspecified; K21.9 Gastro-esophageal reflux disease without esophagitis; H40.9 Unspecified glaucoma; K58.9 Irritable bowel syndrome, unspecified; I25.2 Old myocardial infarction; Z89.429 Acquired absence of other toe(s), unspecified side; E89.0 Postprocedural hypothyroidism; Z90.10 Acquired absence of unspecified breast and nipple; Z98.49 Cataract extraction status, unspecified eye; Z83.3 Family history of diabetes mellitus; Z82.49 Family history of ischemic heart disease and other diseases of the circulatory system; Z80.0 Family history of malignant neoplasm of digestive organs; Z82.3 Family history of stroke; Z79.82 Long term (current) use of aspirin; Z79.01 Long term (current) use of anticoagulants; Z79.899 Other long term (current) drug therapy; Z79.4 Long term (current) use of insulin

== ENCOUNTER 2017-07-27 02:04 | Inpatient (IN) | payer OTHER, MEDICARE ==
[~2017-07-27] VITALS: Ht 152.4 cm; Wt 77.8 kg
[~2017-07-27 02:04] MED LIST changes: +ACET-1311 PO; -CHOL100010 PO; +CHOL100041 PO; -DOCU-94 PO; -FLUT0.0529 NAE; +FLUT0.15 NAE; +FURO-85 PO; -LSX40 PO; +NYSTCRE11 TOP; +QUET1TAB30 PO; +SENN-65 PO; -SRQ25 PO; -TYL325X PO
[2017-07-27] MEDS ORDERED: FENTANYL CITRATE INJ 50 MCG/1 ML 2 ML VIAL IV STA (02:27)
--- NOTE | 2017-07-27 02:32 | EMERGENCY ROOM VISIT NOTE ---
"History Report prepared by Peter: Flynn Solano Under the Supervision of: Dr. Cathie Henry D.O. First contact with patient: 02:05 Chief Complaint: GI ASSESSMENT Stated Complaint: RECTAL BLEED/ABDOMINAL AND CHEST PAIN History of Present Illness The patient is an 81 year old female who presents to the Emergency Room via EMS with complaints of persistent epigastric abdominal pain that started around 7 hours ago. Per the nursing staff, the patient first complained of chest pain to EMS, and then complained of abdominal pain as well as some bright red rectal bleeding. The patient is noted to be completely independent at home. The patient states that her epigastric pain goes right through to her back. She notes that she has had pain like this intermittently in the past, but the different with her current pain is it is not going away. The patient has a history of heartburn and takes Riopan for that, but she says that her pain does not feel like heartburn. Per the nursing staff, EMS tried to give the patient chewable Aspirin but the patient almost choked on it. The patient says that she ate chicken nuggets for dinner. Source of History: patient, nursing staff Onset: Around 7 hours ago Position: abdomen (epigastric) Timing: other (persistent) Associated Symptoms: + chest pain (initially), + back pain Note: Associated symptoms: Possible bright red rectal bleeding. Review of Systems See HPI for pertinent positives & negatives. A total of 10 systems reviewed and were otherwise negative. 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 Surgical Problems: (1) H/O esophagogastroduodenoscopy (2) H/O partial thyroidectomy (3) H/O total thyroidectomy (4) History of angioplasty of peripheral vessel (5) History of mastectomy (6) S/P cataract surgery (7) S/P T&A (status post tonsillectomy and adenoidectomy) Family History Diabetes mellitus BROTHER SISTER FH: CAD (coronary artery disease) FATHER FH: GI cancer MOTHER (Colon CA) FH: cancer BROTHER (Brain) Stroke FATHER Social History Smoking Status: Never Smoker Drug Use: none Marital Status: Housing Status: lives alone Occupation Status: retired Current/Historical Medications Scheduled Amlodipine (Norvasc), 10 MG PO DAILY Aspirin (Aspirin Chewable), 81 MG PO DAILY Calcitriol (Rocaltrol Cap), 0.25 MCG PO MWF Cholecalciferol (D 1000), 1,000 UNITS PO BID Clopidogrel (Plavix), 75 MG PO DAILY Dorzolamide Hcl-Timolol Maleat (Cosopt Oph), 1 DROPS OP BID Famotidine (Pepcid), 20 MG PO BID Fluticasone Propionate (Nasal) (Flonase Allergy Relief), 2 SPRAYS MARK BID Furosemide (Lasix), 20 MG PO DAILY Insulin Aspart (Novolog), 10 UNITS SQ AC Insulin Glargine (Lantus Solostar), 13 UNITS SQ BID Isosorbide Mononitrate Ext Rel (Imdur Ext Rel), 60 MG PO QAM Levothyroxine Sodium (Synthroid), 50 MCG PO QAM Losartan Potassium (Losartan Potassium), 25 MG PO QAM Lutein (Lutein), 6 MG PO DAILY Metoprolol Succinate (Toprol Xl), 200 MG PO DAILY Nitroglycerin (Nitrostat), 0.4 MG UT PRN Nystatin/Triamcinolone (Mycolog ||), 1 APPLN TOP BID Pravastatin Sodium (Pravastatin Sodium), 40 MG PO QPM Quetiapine Fumarate (Seroquel), 25 MG PO HS Quetiapine Fumarate (Seroquel), 12.5 MG PO QAM Senna/Docusate Sod (Senokot S), 1 TAB PO DAILY Scheduled PRN Acetaminophen (Tylenol), 650 MG PO Q4 PRN for Pain or Fever Allergies Coded Allergies: Adhesives (Verified Allergy, Unknown, 07/27/17) Alendronate (Unverified Allergy, Unknown, UNKNOWN, 07/27/17) Brimonidine (Verified Allergy, Unknown, 07/27/17) Fish Oil (Unverified Allergy, Unknown, UNKNOWN, 07/27/17) Latex1 -Allergic Contact Dermititis (Verified Allergy, Unknown, 07/27/17) Methadone (Verified Allergy, Unknown, 07/27/17) Metoclopramide (Unverified Allergy, Unknown, UNKNOWN, 07/27/17) Pantoprazole (Unverified Allergy, Unknown, UNKNOWN, 07/27/17) Rofecoxib (Verified Allergy, Unknown, 07/27/17) Timolol (Unverified Allergy, Unknown, UNKNOWN, 07/27/17) BRIMONIDINE TARTRATE-TIMOLOL Valacyclovir (Unverified Allergy, Unknown, UNKNOWN, 07/27/17) Propoxyphene (Verified Adverse Reaction, Mild, 07/27/17) LIGHTHEADED Sulfa Antibiotics (Verified Adverse Reaction, Unknown, NAUSEA/VOMITING TO SULFA DRUGS, 07/27/17) Physical Exam Vital Signs Date Time Temp Pulse Resp B/P (MAP) Pulse Ox O2 Delivery O2 Flow Rate FiO2 07/27/17 06:08 89 07/27/17 06:00 89 18 07/27/17 05:30 93 20 07/27/17 04:01 167/88 07/27/17 04:00 95 23 100 Room Air 07/27/17 03:39 98 18 168/92 100 Room Air 07/27/17 02:29 97 07/27/17 02:15 95 20 153/86 100 Room Air 07/27/17 02:09 98 20 100 Room Air Physical Exam General: Appears very uncomfortable moaning in pain. HEENT: Head - normocephalic and atraumatic Pupils are equal, round, and reactive to light. Extraocular eye muscles are intact, and sclera are anicteric. Nose - moist nasal mucosa without discharge. Mouth - buccal mucosa in mouth is extremely dry. Lips appear dry and cracked. Oropharynx is nonerythematous and there is no tonsillar exudate or edema noted. Neck: Supple; no JVD, nuchal rigidity, cervical lymphadenopathy. Heart: Regular rate and rhythm. There is a normal S1 and S2 with no murmurs, clicks, or gallops appreciated. Lungs: Clear to auscultation bilaterally with no wheezes, rales, or rhonchi. Abdomen: Soft, epigastric pain with palpation, nondistended, with good bowel sounds. There are no palpable pulsatile masses or hepatosplenomegaly. There is no guarding, rigidity, or rebound noted. Rectal: Brown stool heme negative. Extremities: No evidence of cyanosis, clubbing, or edema. There are easily palpable peripheral pulses. Skin: warm and dry with good turgor and no rashes. Medical Decision & Procedures ER Provider Diagnostic Interpretation: CT results as stated below per my review and radiologist interpretation: CT CHEST Without Contrast: Dependent atelectasis. Otherwise, the lungs are clear. No pleural effusion or pneumothorax. Subcentimeter mediastinal and hilar lymph nodes, likely reactive. The left ventricle is mildly prominent. No pericardial effusion. Coronary artery calcifications. No acute osseous abnormality. Radiologist: Chuy Machuca MD Study ready at 03:32 and initial results transmitted at 04:00 CT ABDOMEN/PELVIS: Atelectasis and scarring within the lung bases. Liver, gallbladder, splen, pancreas, and adrenal glands are unremarkable. Calcific densities are seen within both kidneys which are likely vascular. No hydronephrosis. Uterus and adnexa are unremarkable. Appendix is within normal limits. Noninflamed colonic diverticulosis. Fat-containing umbilical hernia. Stranding noted within the subcutaneous soft tissues of the right lower quadrant , likely echogenic. Vascular calcifications. No acute osseous abnormality. Radiologist: Chuy Machuca MD Study ready at 03:32 and initial results transmitted at 03:55 Laboratory Results 07/27/17 02:31 Red Blood Count 3.96, Mean Corpuscular Volume 90.4, Mean Corpuscular Hemoglobin 31.1, Mean Corpuscular Hemoglobin Concent 34.4, Mean Platelet Volume 11.4, Neutrophils (%) (Auto) 61.7, Lymphocytes (%) (Auto) 28.0, Monocytes (%) (Auto) 7.6, Eosinophils (%) (Auto) 2.2, Basophils (%) (Auto) 0.4, Neutrophils # (Auto) 4.45, Lymphocytes # (Auto) 2.02, Monocytes # (Auto) 0.55, Eosinophils # (Auto) 0.16, Basophils # (Auto) 0.03 Test 07/27/17 02:15 07/27/17 02:19 07/27/17 02:31 07/27/17 03:07 Urine Color YELLOW Urine Appearance CLEAR (CLEAR) Urine pH 8.5 (4.5-7.5) Urine Specific [place] 1.024 (1.000-1.030) Urine Protein 1+ (NEG) Urine Glucose (UA) 3+ (NEG) Urine Ketones NEG (NEG) Urine Occult Blood NEG (NEG) Urine Nitrite NEG (NEG) Urine Bilirubin NEG (NEG) Urine Urobilinogen NEG (NEG) Urine Leukocyte Esterase NEG (NEG) Urine WBC (Auto) 0 /hpf (0-5) Urine RBC (Auto) 0-4 /hpf (0-4) Urine Hyaline Casts (Auto) 0 /lpf (0-5) Urine Epithelial Cells (Auto) 0-5 /lpf (0-5) Urine Bacteria (Auto) NEG (NEG) Bedside Glucose 339 mg/dl (70-90) White Blood Count 7.22 K/uL (4.8-10.8) Red Blood Count 3.96 M/uL (4.2-5.4) Hemoglobin 12.3 g/dL (12.0-16.0) Hematocrit 35.8 % (37-47) Mean Corpuscular Volume 90.4 fL (80-100) Mean Corpuscular Hemoglobin 31.1 pg (25-34) Mean Corpuscular Hemoglobin Concent 34.4 g/dl (32-36) Platelet Count 229 K/uL (130-400) Mean Platelet Volume 11.4 fL (7.4-10.4) Neutrophils (%) (Auto) 61.7 % Lymphocytes (%) (Auto) 28.0 % Monocytes (%) (Auto) 7.6 % Eosinophils (%) (Auto) 2.2 % Basophils (%) (Auto) 0.4 % Neutrophils # (Auto) 4.45 K/uL (1.4-6.5) Lymphocytes # (Auto) 2.02 K/uL (1.2-3.4) Monocytes # (Auto) 0.55 K/uL (0.11-0.59) Eosinophils # (Auto) 0.16 K/uL (0-0.5) Basophils # (Auto) 0.03 K/uL (0-0.2) RDW Standard Deviation 43.1 fL (36.4-46.3) RDW Coefficient of Variation 13.0 % (11.5-14.5) Immature Granulocyte % (Auto) 0.1 % Immature Granulocyte # (Auto) 0.01 K/uL (0.00-0.02) Total Bilirubin 0.3 mg/dl (0.2-1) Direct Bilirubin < 0.1 mg/dl (0-0.2) Aspartate Amino Transf (AST/SGOT) 13 U/L (15-37) Alanine Aminotransferase (ALT/SGPT) 20 U/L (12-78) Alkaline Phosphatase 135 U/L (45-117) Total Creatine Kinase 56 U/L (26-192) Creatine Kinase MB 1.9 ng/ml (0.5-3.6) Creatine Kinase MB Ratio 3.4 (0-3.0) Troponin I 0.036 ng/ml (0-0.045) Total Protein 7.8 gm/dl (6.4-8.2) Albumin 3.7 gm/dl (3.4-5.0) Lipase 177 U/L (73-393) Bedside Hemoglobin 12.2 g/dl (12.0-16.0) Bedside Hematocrit 36 % (37-47) Bedside Sodium 138 mEq/L (135-144) Bedside Potassium 4.3 mEq/L (3.3-5.0) Bedside Chloride 100 mEq/L (101-112) Bedside Total CO2 23 mEq/l (24-31) Anion Gap 20.0 mmol/L (16-25) Bedside Blood Urea Nitrogen 36 mg/dl (7-18) Bedside Creatinine 2.2 mg/dl (0.6-1.3) Bedside Glucose (other) 359 mg/dl (70-99) Bedside Ionized Calcium (Fish) 1.08 mmol/l (1.12-1.32) Laboratory results per my review. Medications Administered Medications (Trade) Dose Ordered Sig/Mitch Route Start Time Stop Time Status Last Admin Dose Admin Fentanyl Citrate (Fentanyl Inj) 50 mcg NOW STAT IV 07/27/17 02:27 07/27/17 02:29 DC 07/27/17 02:41 50 MCG Morphine Sulfate (MoRPHine SULFATE INJ) 4 mg NOW STAT IV 07/27/17 03:38 07/27/17 03:39 DC 07/27/17 03:43 4 MG Ondansetron HCl (Zofran Inj) 4 mg NOW STAT IV 07/27/17 03:38 07/27/17 03:39 DC 07/27/17 03:43 4 MG Sodium Chloride 500 ml @ 999 mls/hr Q31M STAT IV 07/27/17 04:23 07/27/17 04:53 DC 07/27/17 04:38 999 MLS/HR Ranitidine HCl (zANTac IV) 50 mg NOW STAT IV 07/27/17 04:23 07/27/17 04:24 DC 07/27/17 04:52 50 MG Lidocaine HCl (Viscous Lidocaine 2% Soln) 10 ml NOW STAT PO 07/27/17 05:02 07/27/17 05:03 DC 07/27/17 05:09 10 ML Al Hydroxide/Mg Hydroxide (Maalox Susp) 30 ml NOW STAT PO 07/27/17 05:02 07/27/17 05:03 DC 07/27/17 05:09 30 ML Procedure 0227: Ordered Fentanyl Inj 50 mcg IV. 0338: Ordered Zofran Inj 4 mg IV, Morphine Sulfate Inj 4 mg IV. 0423: Ordered Zantac IV 50 mg IV, NSS 500 ml @ 999 mls/hr IV. 0502: Ordered Maalox Susp 30 ml PO, Viscous Lidocaine 2% Soln 10 ml PO. ECG Indication: abdominal pain Rate (beats per minute): 96 Rhythm: normal sinus Findings: T-wave inversion (in 1 and AVL), other (ST segment depression laterally) Comparison ECG Date: compared to June 22 2017, ST segment depresion laterally is new ED Course 0223: Past medical records reviewed. The patient was evaluated in room B7. A complete history and physical exam was performed. A twelve-lead EKG was obtained as described above. An IV lock had been initiated and labs were drawn as above. 0227: Ordered Fentanyl Inj 50 mcg IV. The patient went for CT scan of the abdomen/pelvis to rule out aortic dissection. 0338: She continued to complain of discomfort and I Ordered Zofran Inj 4 mg IV , Morphine Sulfate Inj 4 mg IV. 0419: I reevaluated the patient and she is still having epigastric pain but really wants something to drink. 0423: Ordered Zantac IV 50 mg IV, NSS 500 ml @ 999 mls/hr IV. 0500: I reevaluated and updated the patient. 0502: Ordered Maalox Susp 30 ml PO, Viscous Lidocaine 2% Soln 10 ml PO. 0556: The patient is now pain free and the housekeeper manager is seeing her now. 0602: The correctional casework specialist met with the patient and the patient explained that she is still having significant hallucinations at home. [address] [place] [address] will meet with the patient. 0630: The patient was signed out to Dr. Francis. Medical Decision The patient is an 81 year old female who presents to the ED with epigastric abdominal pain. Differential diagnosis includes aortic dissection, pancreatitis , perforated viscus, GERD, gastritis. Lab results show normal white count, stable H&H, creatinine of 2.2 which is her baseline renal function, LFT's were unremarkable except for alk phos was 135, lipase was normal at 177, urinalysis was unremarkable. The patient presents to the emergency department with increasing epigastric abdominal pain throughout the evening. CT scan of the abdomen/pelvis was unremarkable. Laboratory studies were unremarkable. The patient had significant improvement in her symptoms after receiving a GI cocktail. There was some concern as the correctional casework specialist was speaking with the patient that there may have been increase in her visual hallucinations which she has a long- standing history of. The staff from [facility] will evaluate the patient for further care. The case was signed out to Dr. Francis at shift change. Medication Reconcilliation Current Medication List: was personally reviewed by me Blood Pressure Screening Patient's blood pressure: Elevated blood pressure Blood pressure disposition: Elevated BP felt to be situational Impression Primary Impression: Epigastric abdominal pain Additional Impression: Visual hallucinations Scribe Attestation The scribe's documentation has been prepared under my direction and personally reviewed by me in its entirety. I confirm that the note above accurately reflects all work, treatment, procedures, and medical decision making performed by me. Departure Information Dispostion Still a Patient (signed out to Dr. Francis) Referrals Demond La MD (PCP) Patient Instructions My [facility] Problem Qualifiers"
[2017-07-27 02:45] LABS: BASO % 0.4 %; BASO ABS # 0.03 K/uL (0-0.2); COMPLETE YES; EOS % 2.2 %; HEMATOCRIT 35.8 % (37-47); IG% 0.1 %; LYMPH ABS # 2.02 K/uL (1.2-3.4); MEAN CELL VOLUME 90.4 fL (80-100); MEAN CORPUSCULAR HEMOGLOBIN 31.1 pg (25-34); MEAN CORPUSCULAR HGB CONC 34.4 g/dl (32-36); MEAN PLATELET VOLUME 11.4 fL (7.4-10.4); MONO % 7.6 %; NEUT % 61.7 %; PLATELET COUNT 229 K/uL (130-400); RED BLOOD COUNT 3.96 M/uL (4.2-5.4); WHITE BLOOD COUNT 7.22 K/uL (4.8-10.8)
[2017-07-27] MEDS ORDERED: OPTIRAY 320 IV PRN (02:45)
[2017-07-27] MEDS ORDERED: FRS/40 PO (02:52)
[2017-07-27 02:53] LABS: URINE APPEARANCE CLEAR (CLEAR); URINE BILIRUBIN NEG (NEG); URINE COLOR YELLOW; URINE EPITHELIAL CELL AUTO 0-5 /lpf (0-5); URINE NITRITE NEG (NEG); URINE PH 8.5 (4.5-7.5); URINE SPECIFIC GRAVITY 1.024 (1.000-1.030); UROBILINOGEN NEG (NEG)
[2017-07-27] MEDS ORDERED: ASPCH81X PO (02:53)
[2017-07-27 03:10] LABS: ALKALINE PHOSPHATASE 135 U/L (45-117); ALT/SGPT 20 U/L (12-78); AST/SGOT 13 U/L (15-37); CKMB/CK RATIO 3.4 (0-3.0)
[2017-07-27 03:20] LABS: MANUAL MICROSCOPIC REQUIRED? NO; REVIEW REQ? NO; SULFASALICYLIC ACID POS (NEG)
[2017-07-27 03:20] LABS: ISTAT CREATININE 2.2 mg/dl (0.6-1.3); ISTAT HEMOGLOBIN 12.2 g/dl (12.0-16.0); ISTAT IONIZED CALCIUM 1.08 mmol/l (1.12-1.32)
[2017-07-27] MEDS ORDERED: ONDANSETRON INJ 2 MG/ML 2 ML VIAL IV STA (03:38)
[2017-07-27] MEDS ORDERED: MoRPHine SULFATE 4 MG/ML 1 ML CARP\\VIAL IV STA (03:38)
[2017-07-27] MEDS ORDERED: SODIUM CHLORIDE 0.9% 500ML 500 ML IV STA (04:23)
[2017-07-27] MEDS ORDERED: RANITIDINE HCL 50 MG/100 ML D5W IV STA (04:23)
[2017-07-27] MEDS ORDERED: ALUMINUM/MAGNESIUM SUSP 30 ML UDC PO STA (05:02)
[2017-07-27] MEDS ORDERED: LIDOCAINE HCL 2% VISC SOLN 20 ML UDC PO STA (05:02)
--- NOTE | 2017-07-27 06:48 | DIAGNOSTIC IMAGING REPORT ---
ABD/PELVIS NO IV OR ORAL CONT CT DOSE: 898.77 mGy.cm HISTORY: Pain EPIGASTRIC PAIN/ RECTAL BLEEDING TECHNIQUE: Multiaxial CT images of the abdomen and pelvis were performed without contrast. A dose lowering technique was utilized adhering to the principles of ALARA. COMPARISON STUDY: 03/19/2014 FINDINGS: Lung bases are clear bilateral renal calcifications unchanged in the prior study. Configuration of liver is unremarkable. Bowel pattern is considered nonobstructive. Findings of chronic sigmoid diverticulosis. No evidence for acute diverticulitis. Small fat-containing nonobstructive periumbilical hernia. Moderate fatty infiltration of the pancreas most prominent enhancing process. This is unchanged. Degenerative change of the low thoracic as well as lumbar spine. IMPRESSION: 1. Bilateral nonobstructing renal calcifications. 2. Chronic sigmoid diverticulosis. The above report was generated using voice recognition software. It may contain grammatical, syntax or spelling errors. Electronically signed by: George Desir M.D. 07/27/2017 6:47 AM Dictated Date/Time: 07/27/2017 6:42 AM
--- NOTE | 2017-07-27 07:23 | EMERGENCY ROOM VISIT NOTE ---
ED Visit Note First contact with patient: 06:55 I received care of this patient on signout from Dr. Henry this morning. He shouldn't is an 81-year-old woman who presented with epigastric pain, had CT that was unremarkable. In terms improve with Pepcid suggesting likely gastritis. Plan urgently for discharge however review of EMS report questioned disarray in the home, moreover the patient reports hallucinations, although patient does have a documented history of this. Thus [facility] was consulted for evaluation and while they feel that the patient is at baseline in terms of her hallucinations, they feel that further confirmation of the safety of the patient 's home environment is necessary. Thus, CM assisting and involving office of aging, who is already familiar with this patient, to provide further recommendations for safe disposition. Patient later found to be hypoxic with new O2 requirement, although not reporting sob, patient did have some mild labored breathing. On exam diminished at bases with mild JVD. Given lasix and BNP sent. EKG and trop repeated. EKG without significant changes however, trop elevated to 10 c/w NSTEMI. Per prior documented exam of guaiac negative. No contraindications to heparin at this time. Patient given ASA and started on Low dose heparin with bolus. Patient feeling improved after IVF. Case d/w medicine hospitalist who admitted patient for further management.
--- NOTE | 2017-07-27 07:40 | DIAGNOSTIC IMAGING REPORT ---
(CHEST) THORAX WITHOUT CT DOSE: HISTORY: EPIGASTRIC PAIN / RECTAL BLEEDING TECHNIQUE: Multiaxial CT images of the chest were performed without contrast. A dose lowering technique was utilized adhering to the principles of ALARA. COMPARISON: None. FINDINGS: Mild nodular thickening along the left major fissure. No pleural effusions. No pneumothorax. Mild interstitial thickening most pronounced at the lung bases. No focal lung consolidations to suggest pneumonia. The central airways are patent. Subcentimeter hypodense lesions within the left hepatic lobe are too small to characterize but favor cysts. Bilateral renal calcifications. Some of this may be related to vascular calcifications. Small hiatus hernia. The right thyroid lobe is likely surgically absent. No mediastinal or hilar lymphadenopathy. Normal caliber thoracic aorta. The right breast appears surgically absent. IMPRESSION: Mild interstitial thickening most pronounced at the lung bases which is likely chronic. No focal lung consolidations to suggest pneumonia. Electronically signed by: Travis Anand M.D. 07/27/2017 7:39 AM Dictated Date/Time: 07/27/2017 7:34 AM
[2017-07-27] MEDS ORDERED: FUROSEMIDE 40 MG/4 ML VIAL IV STA (08:40)
--- NOTE | 2017-07-27 09:24 | DIAGNOSTIC IMAGING REPORT ---
CHEST ONE VIEW PORTABLE HISTORY: Short of breath. Hypoxia. COMPARISON: Chest 06/22/2017. FINDINGS: The heart remains mildly enlarged. No pneumothorax. Progressive diffuse interstitial vascular thickening consistent with mild pulmonary edema. There is also progressive patchy airspace opacity the right lung base. No pleural effusions at this time. IMPRESSION: 1. Cardiomegaly with mild interstitial pulmonary edema. 2. Right lower lobe airspace opacity which may be due to the asymmetric alveolar edema or a superimposed pneumonia. Recommend follow-up to ensure resolution. Electronically signed by: Travis Anand M.D. 07/27/2017 9:23 AM Dictated Date/Time: 07/27/2017 9:21 AM
[2017-07-27] MEDS ORDERED: ASPIRIN 81 MG CHEW PO STA (09:44)
[2017-07-27] MEDS ORDERED: HEPARIN 25000 UNIT/500 ML D5W ONE (10:01)
[2017-07-27 10:07] LABS: PROTHROMBIN TIME (PATIENT) 10.3 SECONDS (9.0-12.0)
[2017-07-27] MEDS: HEPARIN SOD 5000 UNIT/0.5 ML CARP ONE ×2 (10:09→10:12)
--- NOTE | 2017-07-27 10:12 | History and Physical ---
"History & Physical Date & Time of Service: Jul 27, 2017 at 10:12 . Chief Complaint: epigastric pain . Primary Care Physician: Demond La MD . History of Present Illness Source: patient, clinic records, hospital records 81 YO female followed by Dr. La for Internal Medicine and Dr. Ruffin for Cardiology. History of ischemic heart disease, hypertension, CKD, dyslipidemia, DM, and other problems noted below. Suffered inferior myocardial infarction in 2010. Cardiac cath demonstrated total occlusion of distal posterior descending artery. The vessel was very small and no intervention was performed. Diffuse disease of other coronary vessels was noted. Patient developed epigastric pain last evening around 19:00 after eating chicken nuggets for dinner. Pain radiated to her back. It was associated with some nausea, but no SOB or diaphoresis. She tried antacid without relief. Pain persisted for several hours, so she called EMS around 01:30 this morning. Initial EKG in ED did not show any apparent acute findings. Initial CPK, CPK-MB, troponin were normal. CT of chest without contrast did not show any acute findings. CT of abdomen + pelvis without IV or oral contrast showed nonobstructing renal calculi, diverticulosis, no apparent diverticulitis or other acute findings. Oxygenating well on RA at time of presentation to ED. Received IV NSS x 500 ml during the night. O2 sat this morning at 07:50 was 79% on RA. Supplemental O2 administered. Portable chest x-ray demonstrated pulmonary edema. Furosemide 40 mg IV x 1 was given. Repeat serum troponin was drawn at 09:05 and had risen from 0.0.6 to 10.1. Patient referred for admission. She was pain-free and breathing comfortably at time of my assessment. . Past Medical/Surgical History Chronic and Resolved Medical Problems: (1) CHF (congestive heart failure) Status: Chronic (2) Claudication Status: Chronic (3) Coronary atherosclerosis Status: Chronic (4) Diabetes mellitus, type 2 Status: Chronic (5) Dyslipidemia Status: Chronic (6) Generalized osteoarthritis Status: Chronic (7) GERD (gastroesophageal reflux disease) Status: Chronic (8) Glaucoma Status: Chronic (9) History of adenomatous polyp of colon Status: Chronic (10) History of breast cancer Status: Chronic (11) History of herpes zoster Status: Chronic (12) History of toxic multinodular goiter Status: Chronic (13) HTN (hypertension) Status: Chronic (14) Hypothyroidism Status: Chronic (15) IBS (irritable bowel syndrome) Status: Chronic (16) 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 Status: Chronic (17) Sciatica Status: Chronic (18) Visual hallucinations Status: Chronic Surgical Problems: (1) H/O esophagogastroduodenoscopy Status: Chronic (2) H/O partial thyroidectomy Permanent Comment: 2002 Status: Chronic (3) H/O total thyroidectomy Permanent Comment: 2004 Status: Chronic (4) History of angioplasty of peripheral vessel Permanent Comment: Left Fem-pop bypass 2005 Status: Chronic (5) History of mastectomy Permanent Comment: 2006, right breast Status: Chronic (6) S/P cataract surgery Permanent Comment: 1994 Status: Chronic (7) S/P T&A (status post tonsillectomy and adenoidectomy) Status: Chronic (8) Status post cardiac catheterization Permanent Comment: 2010 Dr. Ruffin [facility] total occlusion post descending artery, diffuse disease elsewhere Status: Chronic (9) Status post transmetatarsal amputation of left foot Status: Chronic . Family History FATHER Stroke Coronary artery disease MOTHER Colon cancer BROTHER Diabetes mellitus Brain cancer SISTER Diabetes mellitus Coronary artery disease BROTHER Diabetes mellitus BROTHER Diabetes mellitus SISTER Diabetes mellitus Heart disease Social History Smoking Status: Never Smoker Alcohol Use: none Drug Use: none Marital Status: Housing status: lives alone Occupational Status: retired Immunizations History of Influenza Vaccine: N/A History of Tetanus Vaccine?: Yes History of Pneumococcal: Yes Pneumococcal Date: Jan 19, 2010 History of Hepatitis B Vaccine: Unknown Multi-Drug Resistant Organisms History of MDRO: No Allergies Coded Allergies: Adhesives (Verified Allergy, Unknown, 07/27/17) Alendronate (Unverified Allergy, Unknown, UNKNOWN, 07/27/17) Brimonidine (Verified Allergy, Unknown, 07/27/17) Fish Oil (Unverified Allergy, Unknown, UNKNOWN, 07/27/17) Latex1 -Allergic Contact Dermititis (Verified Allergy, Unknown, 07/27/17) Methadone (Verified Allergy, Unknown, 07/27/17) Metoclopramide (Unverified Allergy, Unknown, UNKNOWN, 07/27/17) Pantoprazole (Unverified Allergy, Unknown, UNKNOWN, 07/27/17) Rofecoxib (Verified Allergy, Unknown, 07/27/17) Timolol (Unverified Allergy, Unknown, UNKNOWN, 07/27/17) BRIMONIDINE TARTRATE-TIMOLOL Valacyclovir (Unverified Allergy, Unknown, UNKNOWN, 07/27/17) Propoxyphene (Verified Adverse Reaction, Mild, 07/27/17) LIGHTHEADED Sulfa Antibiotics (Verified Adverse Reaction, Unknown, NAUSEA/VOMITING TO SULFA DRUGS, 07/27/17) Home Medications Scheduled Amlodipine (Norvasc), 10 MG PO DAILY Aspirin (Aspirin Chewable), 81 MG PO DAILY Calcitriol (Rocaltrol Cap), 0.25 MCG PO MWF Cholecalciferol (D 1000), 1,000 UNITS PO BID Clopidogrel (Plavix), 75 MG PO DAILY Dorzolamide Hcl-Timolol Maleat (Cosopt Oph), 1 DROPS OP BID Famotidine (Pepcid), 20 MG PO BID Fluticasone Propionate (Nasal) (Flonase Allergy Relief), 2 SPRAYS MARK BID Furosemide (Lasix), 20 MG PO DAILY Insulin Aspart (Novolog), 10 UNITS SQ AC Insulin Glargine (Lantus Solostar), 13 UNITS SQ BID Isosorbide Mononitrate Ext Rel (Imdur Ext Rel), 60 MG PO QAM Levothyroxine Sodium (Synthroid), 50 MCG PO QAM Losartan Potassium (Losartan Potassium), 25 MG PO QAM Lutein (Lutein), 6 MG PO DAILY Metoprolol Succinate (Toprol Xl), 200 MG PO DAILY Nitroglycerin (Nitrostat), 0.4 MG UT PRN Nystatin/Triamcinolone (Mycolog ||), 1 APPLN TOP BID Pravastatin Sodium (Pravastatin Sodium), 40 MG PO QPM Quetiapine Fumarate (Seroquel), 25 MG PO HS Quetiapine Fumarate (Seroquel), 12.5 MG PO QAM Senna/Docusate Sod (Senokot S), 1 TAB PO DAILY Scheduled PRN Acetaminophen (Tylenol), 650 MG PO Q4 PRN for Pain or Fever Review of Systems Constitutional: + chills, No fever, No weight loss Eyes: + worsening of vision (chronic vision loss) ENT: + hearing loss, + nasal symptoms, No sore throat Respiratory: + cough (mild), + shortness of breath (in ED, none prior) Cardiovascular: + problem reported (as noted above) Abdomen: + pain, + nausea, + GI bleeding (? rectal bleeding a few days ago (pt not certain)), No vomiting, No diarrhea Musculoskeletal: + joint pain, + problem reported (sciatica) Genitourinary - Female: No dysuria, No hematuria Neurologic: + numbness/tingling (diabetic neuropathy), + problem reported ( chronic visual hallucinations), No memory loss Endocrine: No excessive thirst, No excessive urination Hematologic / Lymphatic: + abnormal bleeding/bruising Integumentary: + problem reported (recent burn right hand), No rash Physical Exam Vital Signs Date Time Temp Pulse Resp B/P (MAP) Pulse Ox O2 Delivery O2 Flow Rate FiO2 07/27/17 09:22 64 20 143/72 97 Nasal Cannula 4.0 07/27/17 08:33 89 Nasal Cannula 4.0 07/27/17 07:50 88 24 120/75 79 Room Air 07/27/17 06:08 89 07/27/17 06:00 89 18 07/27/17 05:30 93 20 07/27/17 04:01 167/88 07/27/17 04:00 95 23 100 Room Air 07/27/17 03:39 98 18 168/92 100 Room Air 07/27/17 02:29 97 07/27/17 02:15 95 20 153/86 100 Room Air 07/27/17 02:09 98 20 100 Room Air General Appearance: WD/WN, no apparent distress Head: normocephalic, atraumatic Eyes: normal inspection, PERRL, EOMI, sclerae normal, + pertinent finding ( conjunctivae normal) ENT: + pertinent finding (hard of hearing; edentulous) Neck: supple, no adenopathy, thyroid normal, trachea midline Respiratory/Chest: no respiratory distress, no accessory muscle use, + rales ( bibasilar) Cardiovascular: regular rate, rhythm, no gallop, no murmur, + JVD, + abnormal peripheral pulses (diminished pedal pulses), + pertinent finding (trace pretibial edema) Abdomen/GI: normal bowel sounds, soft, no organomegaly, no pulsatile mass, occult blood negative (per ED provider), + tenderness (mild epigastric tenderness) Extremities/Musculoskelatal: no calf tenderness, normal capillary refill, + pedal edema (trace), + pertinent finding (s/p transmet amputation left foot; superficial ulceration dorsum right great toe without erythema or drainage) Neurologic/Psych: mother superior II-XII nml as tested (PERRL, EOMI, no facial palsy, no dysarthria, tongue midline), no motor/sensory deficits (motor strength upper and lower extremities grossly intact), alert, normal mood/affect, + disoriented (oriented to person, place, month & year but not date; could not name president ; no apparent hallucinations) Skin: normal color, warm/dry, no rash, + pertinent finding (healing burn dorsum right hand) Lymphatic: no adenopathy (cervical) Diagnostics Laboratory Results Results Past 24 Hours Test 07/27/17 02:15 07/27/17 02:19 07/27/17 02:31 07/27/17 03:07 Range/Units Urine Color YELLOW Urine Appearance CLEAR CLEAR Urine pH 8.5 4.5-7.5 Urine Specific [place] 1.024 1.000-1.030 Urine Protein 1+ NEG Urine Glucose (UA) 3+ NEG Urine Ketones NEG NEG Urine Occult Blood NEG NEG Urine Nitrite NEG NEG Urine Bilirubin NEG NEG Urine Urobilinogen NEG NEG Urine Leukocyte Esterase NEG NEG Urine WBC (Auto) 0 0-5 /hpf Urine RBC (Auto) 0-4 0-4 /hpf Urine Hyaline Casts (Auto) 0 0-5 /lpf Urine Epithelial Cells (Auto) 0-5 0-5 /lpf Urine Bacteria (Auto) NEG NEG Bedside Glucose 339 70-90 mg/dl White Blood Count 7.22 4.8-10.8 K/uL Red Blood Count 3.96 4.2-5.4 M/uL Hemoglobin 12.3 12.0-16.0 g/dL Hematocrit 35.8 37-47 % Mean Corpuscular Volume 90.4 80-100 fL Mean Corpuscular Hemoglobin 31.1 25-34 pg Mean Corpuscular Hemoglobin Concent 34.4 32-36 g/dl Platelet Count 229 130-400 K/uL Mean Platelet Volume 11.4 7.4-10.4 fL Neutrophils (%) (Auto) 61.7 % Lymphocytes (%) (Auto) 28.0 % Monocytes (%) (Auto) 7.6 % Eosinophils (%) (Auto) 2.2 % Basophils (%) (Auto) 0.4 % Neutrophils # (Auto) 4.45 1.4-6.5 K/uL Lymphocytes # (Auto) 2.02 1.2-3.4 K/uL Monocytes # (Auto) 0.55 0.11-0.59 K/uL Eosinophils # (Auto) 0.16 0-0.5 K/uL Basophils # (Auto) 0.03 0-0.2 K/uL RDW Standard Deviation 43.1 36.4-46.3 fL RDW Coefficient of Variation 13.0 11.5-14.5 % Immature Granulocyte % (Auto) 0.1 % Immature Granulocyte # (Auto) 0.01 0.00-0.02 K/uL Total Bilirubin 0.3 0.2-1 mg/dl Direct Bilirubin < 0.1 0-0.2 mg/dl Aspartate Amino Transf (AST/SGOT) 13 15-37 U/L Alanine Aminotransferase (ALT/SGPT) 20 12-78 U/L Alkaline Phosphatase 135 45-117 U/L Total Creatine Kinase 56 26-192 U/L Creatine Kinase MB 1.9 0.5-3.6 ng/ml Creatine Kinase MB Ratio 3.4 0-3.0 Troponin I 0.036 0-0.045 ng/ml Total Protein 7.8 6.4-8.2 gm/dl Albumin 3.7 3.4-5.0 gm/dl Lipase 177 73-393 U/L Bedside Hemoglobin 12.2 12.0-16.0 g/dl Bedside Hematocrit 36 37-47 % Bedside Sodium 138 135-144 mEq/L Bedside Potassium 4.3 3.3-5.0 mEq/L Bedside Chloride 100 101-112 mEq/L Bedside Total CO2 23 24-31 mEq/l Anion Gap 20.0 16-25 mmol/L Bedside Blood Urea Nitrogen 36 7-18 mg/dl Bedside Creatinine 2.2 0.6-1.3 mg/dl Bedside Glucose (other) 359 70-99 mg/dl Bedside Ionized Calcium (Fihs) 1.08 1.12-1.32 mmol/l Test 07/27/17 09:05 07/27/17 09:44 Range/Units Troponin I 10.100 0-0.045 ng/ml Pro-B-Type Natriuretic Peptide 2602 0-1800 pg/ml Diagnostic Radiology (CHEST) THORAX WITHOUT FINDINGS: Mild nodular thickening along the left major fissure. No pleural effusions. No pneumothorax. Mild interstitial thickening most pronounced at the lung bases. No focal lung consolidations to suggest pneumonia. The central airways are patent. Subcentimeter hypodense lesions within the left hepatic lobe are too small to characterize but favor cysts. Bilateral renal calcifications. Some of this may be related to vascular calcifications. Small hiatus hernia. The right thyroid lobe is likely surgically absent. No mediastinal or hilar lymphadenopathy. Normal caliber thoracic aorta. The right breast appears surgically absent. IMPRESSION: Mild interstitial thickening most pronounced at the lung bases which is likely chronic. No focal lung consolidations to suggest pneumonia. Electronically signed by: Travis Anand M.D. 07/27/2017 7:39 AM Dictated Date/Time: 07/27/2017 7:34 AM ABD/PELVIS NO IV OR ORAL CONT FINDINGS: Lung bases are clear bilateral renal calcifications unchanged in the prior study. Configuration of liver is unremarkable. Bowel pattern is considered nonobstructive. Findings of chronic sigmoid diverticulosis. No evidence for acute diverticulitis. Small fat-containing nonobstructive periumbilical hernia. Moderate fatty infiltration of the pancreas most prominent enhancing process. This is unchanged. Degenerative change of the low thoracic as well as lumbar spine. IMPRESSION: 1. Bilateral nonobstructing renal calcifications. 2. Chronic sigmoid diverticulosis. The above report was generated using voice recognition software. It may contain grammatical, syntax or spelling errors. Electronically signed by: George Desir M.D. 07/27/2017 6:47 AM Dictated Date/Time: 07/27/2017 6:42 AM CHEST ONE VIEW PORTABLE FINDINGS: The heart remains mildly enlarged. No pneumothorax. Progressive diffuse interstitial vascular thickening consistent with mild pulmonary edema. There is also progressive patchy airspace opacity the right lung base. No pleural effusions at this time. IMPRESSION: 1. Cardiomegaly with mild interstitial pulmonary edema. 2. Right lower lobe airspace opacity which may be due to the asymmetric alveolar edema or a superimposed pneumonia. Recommend follow-up to ensure resolution. Electronically signed by: Travis Anand M.D. 07/27/2017 9:23 AM Dictated Date/Time: 07/27/2017 9:21 AM . EKG EKG performed at 02:16 reviewed and demonstrated NSR at 96 / minute, QTc 492 ms , left axis deviation, baseline artifact, inverted T-waves I, aVL, ? slight ST depression lateral precordial leads (uncertain due to fluctuating baseline). Compared to 02/11/17, no apparent changes. EKG performed at 08:52 reviewed and demonstrated NSR at 91 / minute, QTc 489 ms , left axis deviation, baseline artifact, inverted T-waves I, aVL, slight ST depression V4-6. . Impression Assessment and Plan ACUTE MYOCARDIAL INFARCTION Known ischemic heart disease, s/p inferior PA 2010 without intervention. Cath at that time showed diffuse coronary disease. Presented with epigastric pain radiating to her back. No apparent acute EKG changes. First set of cardiac markers normal, but second troponin several hours later was 10. Pain-free at time of my assessment. Check echo, lipid profile. Follow serial cardiac markers and EKG's. Continue aspirin and clopidogrel. IV heparin started in ED and will be continued. Convert nitrate therapy from isosorbide mononitrate to NTP. Continue metoprolol and amlodipine. Continue losartan. Consult Cardiology- known to Dr. Ruffin. PULMONARY EDEMA / HYPOXIA / CHF History of respiratory failure February 2016 necessitating intubation / mechanical ventilation; attribute to acute systolic CHF. Developed hypoxia in ED this morning after receiving IV fluids. O2 sat was as low as 79% on RA. Chest x-ray demonstrated pulmonary edema. Probable acute on chronic left ventricular systolic failure. Echo in 2015 demonstrated inferior, posterior, inferoapical hypokinesis, overall LVEF 45-50%. Received IV furosemide in ED. Check repeat echo. Titrate furosemide. Continue losartan. Follow weights, labs, etc. HYPERTENSION Continue metoprolol, amlodipine, losartan, nitrates. Follow and titrate Rx. CKD IV Serum creatinine 2.2 compared to baseline of 2.4 on 06/22/17. Monitor fluid status. Avoid potential nephrotoxins when able. 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 Random blood sugar in ED 339. Lantus / NovoLog per protocol. Check Hgb A1C. DYSLIPIDEMIA Check lipid profile. Continue pravastatin. HYPOTHYROIDISM S/P thyroidectomy for toxic multinodular goiter. Check TSH. Continue levothyroxine. VISUAL HALLUCINATIONS / HISTORY OF DELIRIUM Hospitalized twice over past year for altered mental status associated with visual hallucinations. Apparent underlying mild dementia. Meds with DELI COOK side effects were discontinued and patient was started on quetiapine. Still having visual hallucinations at home, but otherwise seems to be doing fairly well. group home memory is intact. Short term memory if fairly good- O x 3 except for exact date; knows that current president had casinos in [place], although could not recall his name. Insight regarding her medical conditions seems to be fairly good. QTc 490 msec. Potential cardiovascular and metabolic side effects of atypical antipsychotic medications noted, but best to continue quetiapine rather than risk delirium with associated hemodynamic stress in setting of acute PA. Monitor for delirium. GLAUCOMA Continue Cosopt. VTE PROPHYLAXIS Currently receiving IV heparin for acute PA. Ambulate as able. RESUSCITATION STATUS Discussed with patient. No living will. Full code. DISPOSITION Meets criteria for inpatient status per Case Management. Admit to Telemetry Unit. Discharge disposition to be determined; probable DC to home with home health nursing. Internal Medicine follow-up with Dr. La. Cardiology follow-up with Dr. Ruffin. Nephew / [employer] [place] given update by phone. . VTE Prophylaxis VTE Risk Assessment Done? Y/N: Yes Risk Level: Moderate Given or contraindicated: Other Anticoagulation (IV heparin)"
[2017-07-27] MEDS ORDERED: NITROGLYCERIN 0.4 MG SL PER TAB CHARGE SL PRN (10:15)
[2017-07-27] MEDS ORDERED: ACETAMINOPHEN 325 MG TAB PO PRN (10:15)
[2017-07-27] MEDS ORDERED: MoRPHine SULFATE 2 MG/ML CARP IV PRN (10:15)
[2017-07-27] MEDS ORDERED: HEPARIN IV BOLUS 4,000 UNIT in SYRINGE 0 ML IV ONE (11:30)
[2017-07-27 11:34] VITALS: BP 144/82; PULSE 86; TEMP 36.6; O2SAT 100
[2017-07-27] MEDS ORDERED: DORZOLAMIDE/TIMOLOL 22.3/6.8MG/ML 10 ML BTL OP ONE (11:45)
[2017-07-27] MEDS ORDERED: GLUCAGON FOR INJ 1 MG VIAL SQ PRN (11:45)
[2017-07-27] MEDS ORDERED: DEXTROSE 50% 50 ML SYR IV PRN (11:45)
[2017-07-27] MEDS ORDERED: AMLODIPINE BESYLATE 5 MG TAB PO ONE (11:45)
[2017-07-27] MEDS ORDERED: METOPROLOL SUCC 50MG EXT REL TAB PO ONE (11:45)
[2017-07-27] MEDS ORDERED: GLUCOSE 10 TABS/TUBE PO PRN (11:45)
[2017-07-27] MEDS ORDERED: INSULIN GLARGINE SOLOSTAR 100 UNITS/ML 3 ML PEN SQ ONE (11:45)
[2017-07-27] MEDS ORDERED: LOSARTAN POTASSIUM 25 MG TAB PO ONE (11:45)
[2017-07-27] MEDS ORDERED: GLUCOSE 40% GEL 15 GM TUBE PO PRN (11:45)
[2017-07-27] MEDS ORDERED: QUETIAPINE FUMARATE 25 MG TAB PO ONE (12:00)
[2017-07-27] MEDS: NITROGLYCERIN OINT 2% 1GM PACKET EXT SCH ×2 (13:10→17:54)
[2017-07-27] MEDS: INSULIN ASPART 100 UNITS/ML 3 ML PEN SQ SCH ×2 (13:15→17:46)
[2017-07-27 15:17] VITALS: BP 120/69; PULSE 68; TEMP 36.7; O2SAT 91
[2017-07-27] MEDS ORDERED: CLOPIDOGREL BISULFATE 75 MG TAB PO ONE (16:45)
[2017-07-27] MEDS ORDERED: LEVOTHYROXINE 50 MCG TAB PO ONE (16:45)
[2017-07-27] MEDS ORDERED: DOCUSATE SODIUM/SENNA 50/8.6MG TAB PO ONE (16:45)
[2017-07-27] MEDS ORDERED: MoRPHine SULFATE 2 MG/ML CARP IV ONE (17:00)
[2017-07-27] MEDS ORDERED: FUROSEMIDE INJ 40 MG in SYRINGE 0 ML IV ONE (17:00)
--- NOTE | 2017-07-27 17:17 | ECHOCARDIOGRAM REPORT ---
*NOTICE TO RECEIVING [employer] This information is strictly Confidential and protected under [place] law. [place] law prohibits you from making any further disclosure of this information unless further disclosure is expressly permitted by the written consent of the person to whom it pertains or is authorized by law. A general authorization for the release of medical or other information is not sufficient for this purpose. Hospital accepts no responsibility if the information is made available to any other person, INCLUDING THE PATIENT. Interpretation Summary * Name: YENNI MANE Study Date: 07/27/2017 01:22 PM BP: 144/82 mmHg * Patient Location: C.2T\S\S230\S\1 HR: 86 * : 1935 (M/d/yyy) Gender: Female Height: 60 in * Age: 81 yrs Ethnicity: [place] Weight: 180 lb * Ordering Physician: Nile Chaudhry * Referring Physician: Self, Referred * Performed By: Jackie Mathias RDCS * * Reason For Study: CHEST PAIN * BSA: 1.8 m2 * Moderate left ventricular systolic dysfunction. * Apical akinesis. Lateral, posterior, and inferior hypokinesis. Anteroseptal akinesis. * Mild concentric left ventricular hypertrophy. * Grade 2 left ventricular diastolic dysfunction. * Mild left atrial dilatation. * Aortic valve sclerosis without significant stenosis. * Moderate mitral regurgitation. * Trace pulmonic regurgitation. * Trace to mild tricuspid regurgitation. * Mildly elevated estimated right ventricular systolic pressure. Procedure Details * A contrast injection of Definity was performed to improve assessment of LV function. * Contrast was injected into an intravenous site in the left arm. * One vial of Definity ultrasound contrast was diluted in normal saline to a total volume of 10 ml. A total of '2' ml of solution was administered during imaging. * Lot # [id number] of Definity utilized for procedure. * Expiration date AUG 29. * The attending nurse who injected the contrast agent was JUSTIN ABARCA RN. Left Ventricle * The left ventricle is normal in size. * There is no thrombus. * There is mild concentric left ventricular hypertrophy. * Ejection Fraction = 40-45%. * Left ventricular systolic function is moderately reduced. * Diastolic dysfunction, Grade II (pseudonormalization pattern). * There is apical akinesis. * There is moderate lateral wall hypokinesis. * There is mild posterior wall hypokinesis. * Posterolateral severe hypokinesis. Anteroseptal akinesis. * There is mild inferior wall hypokinesis. Right Ventricle * The right ventricle is normal in size and function. * The right ventricular systolic function is normal as assessed by tricuspid annular plane systolic excursion (TAPSE) (normal >1.5 cm). Atria * The left atrium is mildly dilated. * Right atrial size is normal. * No ASD detected; PFO is not assessed. Mitral Valve * There is moderate mitral annular calcification. * There is no mitral valve stenosis. * There is moderate mitral regurgitation. Tricuspid Valve * The tricuspid valve is normal. * There is no tricuspid stenosis. * Right ventricular systolic pressure is elevated at 30-40mmHg. * Trace - mild tricuspid regurgitation. Aortic Valve * Calcified non coronary cusp * No hemodynamically significant valvular aortic stenosis. * No aortic regurgitation is present. Pulmonic Valve * The pulmonic valve is not well visualized. * The pulmonary valve is inadequately visualized, but the Doppler data is adequate for interpretation. * There is no pulmonic valvular stenosis. * Trace pulmonic valvular regurgitation. Great Vessels * The aortic root is normal size. Pericardium/Pleural * There is no pericardial effusion. Great Vessels * IVC not visualized MMode 2D Measurements and Calculations IVSd 1.4 cm LVIDd 4.9 cm LVIDs 3.8 cm LVPWd 1.4 cm IVS/LVPW 0.99 FS 22.3 % EDV(Teich) 113.2 ml ESV(Teich) 62.4 ml EF(Teich) 44.9 % EDV(cubed) 118.2 ml ESV(cubed) 55.3 ml EF(cubed) 53.2 % LV mass(C)d 292.0 grams LV mass(C)dI 163.6 grams/m\S\2 SV(Teich) 50.8 ml SI(Teich) 28.5 ml/m\S\2 SV(cubed) 62.8 ml SI(cubed) 35.2 ml/m\S\2 Ao root diam 3.0 cm Ao root area 7.3 cm\S\2 LA dimension 4.2 cm LA/Ao 1.4 LVAd ap4 38.5 cm\S\2 LVLd ap4 8.7 cm EDV(MOD-sp4) 140.6 ml EDV(sp4-el) 144.8 ml LVAs ap4 28.4 cm\S\2 LVLs ap4 8.9 cm ESV(MOD-sp4) 72.0 ml ESV(sp4-el) 76.4 ml EF(MOD-sp4) 48.8 % EF(sp4-el) 47.2 % LVAd ap2 39.8 cm\S\2 LVLd ap2 10.0 cm EDV(MOD-sp2) 127.2 ml EDV(sp2-el) 134.3 ml LVAs ap2 28.1 cm\S\2 LVLs ap2 9.5 cm ESV(MOD-sp2) 67.6 ml ESV(sp2-el) 71.0 ml EF(MOD-sp2) 46.8 % EF(sp2-el) 47.1 % LVLd %diff 12.9 % EDV(MOD-bp) 145.4 ml LVLs %diff 5.5 % ESV(MOD-bp) 71.8 ml EF(MOD-bp) 50.7 % SV(MOD-sp4) 68.6 ml SI(MOD-sp4) 38.4 ml/m\S\2 SV(MOD-sp2) 59.5 ml SI(MOD-sp2) 33.4 ml/m\S\2 SV(MOD-bp) 73.7 ml SI(MOD-bp) 41.3 ml/m\S\2 SV(sp4-el) 68.3 ml SI(sp4-el) 38.3 ml/m\S\2 SV(sp2-el) 63.3 ml SI(sp2-el) 35.4 ml/m\S\2 Doppler Measurements and Calculations MV E max satrr 102.8 cm/sec MV A max starr 95.1 cm/sec MV E/A 1.1 MV dec time 0.17 sec Ao V2 max 137.1 cm/sec Ao max PG 7.5 mmHg Ao max PG (full) 4.5 mmHg LV V1 max PG 3.0 mmHg LV V1 max 87.3 cm/sec TR max starr 257.9 cm/sec
[2017-07-27 17:25] LABS: PARTIAL THROMBOPLASTIN RATIO 1.6
[2017-07-27] MEDS ORDERED: HEPARIN IV BOLUS 5,000 UNIT in SYRINGE 0 ML IV SCH (18:15)
[2017-07-27 18:20] LABS: CKMB/CK RATIO 11.6 (0-3.0)
[2017-07-27 19:30] VITALS: O2SAT 100; BMI 35.3
[2017-07-27 19:54] VITALS: BP 113/69; PULSE 66; TEMP 36.8; O2SAT 93
[2017-07-27] MEDS: FAMOTIDINE 20 MG TAB PO SCH (20:46)
[2017-07-27] MEDS: QUETIAPINE FUMARATE 25 MG TAB PO SCH (20:46)
[2017-07-27] MEDS: PRAVASTATIN SOD 40 MG TAB PO SCH (20:46)
[2017-07-27] MEDS: DORZOLAMIDE/TIMOLOL 22.3/6.8MG/ML 10 ML BTL OP SCH (20:46)
[2017-07-27] MEDS: CHOLECALCIFEROL 1000 INTER.UNIT TAB PO SCH (20:46)
[2017-07-27] MEDS: INSULIN GLARGINE SOLOSTAR 100 UNITS/ML 3 ML PEN SQ SCH (20:51)
[2017-07-27] MEDS: FLUTICASONE PROPIONATE NA SPR 16 GM BTL NAE SCH (20:51)
--- NOTE | 2017-07-27 22:11 | CARDIOLOGY CONSULTATION ---
DATE OF CONSULTATION: 07/27/2017 ATTENDING PHYSICIAN: Mendel Verdugo MD. REFERRING PHYSICIAN: Nile Chaudhry MD. PRIMARY PHYSICIAN: Demond La MD. CONSULTATION: Espinoza Ruffin MD. HISTORY OF PRESENT ILLNESS: The patient is an 81-year-old white female with a prior history of coronary artery disease, mild left ventricular systolic dysfunction, hypertension, dyslipidemia, type 2 diabetes mellitus, and chronic kidney disease. History of congestive heart failure in January and February 2016. Echocardiography in February 2016 revealed LV ejection fraction 45-50%. At that time, she had moderate inferior and posterior wall hypokinesis, inferoapical hypokinesis, LV diastolic dysfunction, LVH, mild to moderate mitral regurgitation, trace tricuspid regurgitation, and mild aortic stenosis. Her admission from January 25 through January 30 required endotracheal intubation and mechanical ventilation. On her February admission, she also required endotracheal intubation and mechanical ventilation. The patient has previously undergone a cardiac catheterization in 2010. On 01/19/2011, she underwent cardiac catheterization via the right radial artery. This revealed marked systemic hypertension, total occlusion of distal segment of a very small caliber posterior descending artery, diffuse and moderate to severe atherosclerotic disease of the LAD. The mid and distal LAD were very small caliber. Diffuse atherosclerotic disease in the left circumflex coronary artery. The branches of the left circumflex were of small to very small caliber. Because of the small caliber of her vessels, it was felt that she was not a suitable candidate for a percutaneous intervention with coronary stents. Her vessels would be poor targets for CABG surgery. Medical therapy was recommended. The patient states that she was in her normal state of health recently until last evening. She developed the onset of lower retrosternal epigastric tightness. The discomfort radiated to her back. She had associated nausea. She denies to me that she had any associated diaphoresis, or dyspnea at that time. She came to the Emergency Department for evaluation. She underwent a CT scan of her chest and abdomen. The chest exam revealed no acute findings. She had mild interstitial thickening at the lung bases. No evidence of pneumonia. Normal caliber thoracic aorta. The abdominal CT scan revealed chronic sigmoid diverticulosis. Nonobstructing renal calcifications. Her chest x-ray in the Emergency Department revealed increased heart size and mild interstitial edema. Her electrocardiogram revealed sinus rhythm, left axis deviation, voltage for left ventricular hypertrophy, ST segment depressions 1, aVL, V6 consistent with ischemia and/or LVH. No significant change compared to electrocardiogram of 06/22/2017. Her initial troponin I was 0.036. A repeat troponin I at 9:05 a.m. this morning was 10.100. Repeat electrocardiogram this morning was similar to the one performed last evening. The patient was admitted to the telemetry unit. She was started on intravenous heparin. She was already on aspirin and clopidogrel therapy. The patient in long-term was also treated with losartan, metoprolol, isosorbide mononitrate, and furosemide. The patient is not compliant with a low sodium diet. She is compliant with her medications. The patient was seen by me in the telemetry room this afternoon. She states that she persists with epigastric and lower retrosternal tightness since last evening. The intensity has decreased since last evening. She states that this morning she had no dyspnea. When I saw her, she states that she had developed dyspnea. The nursing staff reports that the dyspnea had just developed late this afternoon. Despite her complaints of dyspnea, her oxygen saturation on supplemental nasal cannula oxygen at the time of my exam was 94%. This was on 2 liters from a nasal cannula oxygen. The patient states that recently she has not been experiencing any dyspnea, orthopnea, PND, or peripheral edema. No palpitations, lightheadedness, or syncope. Her appetite had been good. Normally no abdominal pain or nausea. She denies any urinary complaints. No focal neurologic complaints. She states that since admission she has developed a cough. No significant sputum production. She states that normally she does not have a cough. She herself denies any wheezing. PAST MEDICAL HISTORY: 1. Coronary artery disease and ischemic cardiomyopathy as above. 2. History of acute congestive heart failure January and February 2016. Both episodes required endotracheal intubation. 3. History of noncompliance with low sodium diet. 4. Acute inferior [place], 2010. Cardiac catheterization findings as documented above. 5. Chronic kidney disease. 6. Type 2 diabetes mellitus. 7. Diabetic retinopathy, diabetic peripheral neuropathy. 8. Dyslipidemia. 9. Hypertension. 10. Gastroesophageal reflux disease. 11. Hypothyroidism. Status post partial thyroidectomy. 12. History of irritable bowel syndrome. 13. History of herpes zoster. 14. History of peripheral vascular disease. 15. Admission in August 2016 for visual hallucinations. Admission December 2016 for hallucinations. FAMILY HISTORY: No family history of coronary artery disease. SOCIAL HISTORY: The patient is a . She lives alone. She has never smoked cigarettes. Shee does not drink alcohol. ALLERGIES AND ADVERSE DRUG REACTIONS: ALENDRONATE, FISH OIL, LATEX, METHADONE, METOCLOPRAMIDE, PANTOPRAZOLE, PROPOXYPHENE, ROFEXOCIB, TIMOLOL, VALTREX, SULFA ANTIBIOTICS. CURRENT MEDICATIONS: Calcitriol 0.25 mcg Mondays, Wednesdays, and Fridays, amlodipine 10 mg daily, aspirin 81 mg daily, intravenous heparin weight-based protocol, clopidogrel 75 mg daily, furosemide 20 mg daily, metoprolol succinate ER 200 mg daily, losartan 25 mg daily, Seroquel 12.5 mg daily, Senokot 1 tab daily, levothyroxine 50 mcg daily, Cosopt eyedrops 1 drop b.i.d., famotidine 20 mg b.i.d., Flonase 2 sprays b.i.d., Lantus insulin b.i.d., pravastatin 40 mg daily, Seroquel 25 mg at bedtime, vitamin D 1000 units b.i.d., nitroglycerin ointment 1 inch q.6 hours. The patient has also received intravenous furosemide this morning. She received additional dose of intravenous furosemide 40 mg this afternoon. She has also received intravenous morphine this afternoon. The furosemide, and morphine were administered for development of congestive heart failure. At the time of my exam, she had documentation of bibasilar rales. These were not present on physical exam performed by nursing staff earlier this afternoon. She was noted to have rales on Dr. Chaudhry' physical exam this morning. REVIEW OF SYSTEMS: 1. As above. 2. No symptoms of bleeding. 3. No fevers or chills. PHYSICAL EXAMINATION: GENERAL: At the time of my exam, she appeared to be in mild distress secondary to her dyspnea. She stated she felt uncomfortable. She states that this was different than how she had felt earlier today. VITAL SIGNS: This afternoon revealed oral temperature of 36.7, pulse 68, blood pressure 120/69. At the time of my exam, her oxygen saturation was 94%. The lowest sats have been documented to be 91%. HEAD: Normal. EYES: Pupils equal and round. Anicteric. Conjunctivae normal. NECK: Jugular venous pressure approximately 10 cm. Carotids are diminished, but palpable bilaterally. No carotid bruits heard. LUNGS: Mild dyspnea. No accessory muscle use. Bibasilar rales. The rales were in the lower quarter of her lung black. Posteriorly, no wheezing. Anteriorly, wheezing was audible with stethoscope. HEART: PMI not palpable. No lifts or heaves. Distant heart sounds. No murmur, gallop, or rub could be heard. CHEST WALL: No tenderness on palpation. ABDOMEN: Soft. Nontender. No palpable masses or organomegaly. No bruits. Normal bowel sounds. Nontender. EXTREMITIES: Trace pretibial edema bilaterally. No cyanosis or clubbing. Pulses: Diminished pedal and posterior tibial pulses bilaterally. DATA: Electrocardiogram was reviewed by me. Results as documented above. Chest x-ray reviewed by me. Results as documented above. Interstitial edema. LABORATORY DATA: Today was WBC 7.22, hemoglobin 12.3, hematocrit 35.8, platelet count 229. Metabolic profile today was sodium 138, potassium 4.3, chloride 100, carbon dioxide 23, BUN 36, creatinine 2.2. Total bilirubin 0.3. AST 13. ALT 20. Initial CK total was 56 with an MB of 1.9. Initial troponin I 0.036. Repeat troponin I at 9:05 a.m. today was 10.100. Pro-brain natriuretic peptide this morning at 9:05 a.m. was 2602. Potassium this afternoon 4.5. INR this morning 1.0. PTT 24.7. Urinalysis with specific gravity 1.024, 3+ glucose, 1+ protein. pH elevated at 8.5. Urinalysis otherwise normal. IMAGING DATA: Echocardiogram performed today and reviewed by me revealed moderate left ventricular systolic dysfunction. LV ejection fraction 40- 45%. Akinesis of the apex and anterior septum. Lateral, posterior, inferior, and posterolateral hypokinesis. Mild LVH on today's echo. Grade 2 left ventricular diastolic dysfunction. The aortic valve was calcified. The velocities obtained across the aortic valve with Doppler exam were not elevated. Cannot exclude the Doppler exam of the aortic valve was inadequate. On 2D imaging, the aortic valve appeared to have decreased but adequate opening. On Color Flow exam, moderate mitral regurgitation, trace pulmonic regurgitation, and trace to mild tricuspid regurgitation. Estimated right ventricular systolic pressure 30-40 mmHg. ASSESSMENT: 1. Non-ST elevation myocardial infarction. The patient has known multivessel coronary artery disease. Cardiac catheterization in 2010 revealed diffuse coronary artery disease in all vessels. Her mid and distal vessels were of small to very small caliber. Poor candidate for percutaneous intervention. No stent sizes, ioana in mid and distal arteries. The small caliber of the vessels and the diffused nature of the atherosclerotic disease would also make her a poor candidate for coronary artery bypass grafting surgery. The patient is still experiencing anginal type discomfort. Her echocardiogram reveals apical akinesis. Prior echocardiograms revealed apical hypokinesis. 2. Acute on chronic systolic and diastolic congestive heart failure. 3. Blood pressure and heart rate well-controlled. 4. No arrhythmias noted on monitor. Her monitor history was reviewed by me. 5. Probable mild to moderate aortic stenosis. However, she does not appear to have any hemodynamically significant aortic stenosis. 6. Chronic kidney disease. 7. Type 2 diabetes mellitus. RECOMMENDATIONS AND PLAN: 1. The patient would be a poor candidate for repeat cardiac catheterization as her coronary lesions in 2011 were not a suitable candidates for percutaneous intervention or bypass surgery. Performance of cardiac catheterization would also be with increased risk of contrast induced nephropathy. Recommend continued medical management of her coronary artery disease. Would continue dual antiplatelet therapy with aspirin and clopidogrel. Intravenous heparin for 48 hours. Continue metoprolol and nitrate therapy. 2. Additional intravenous furosemide given this afternoon for heart failure. Additional intravenous furosemide as necessary to help clear her heart failure. In the past, she responded well to intravenous diuretics. 3. Serial electrocardiograms and cardiac enzymes. 4. Conservative medical management of her coronary artery disease at this time. This was extensively discussed with the patient by me. She agrees with this. The assessment and recommendations were discussed by me with Dr. Chaudhry. Thank you for asking me to see this patient in cardiology consultation. RONALD
[2017-07-27 23:04] VITALS: BP 99/64; PULSE 80; TEMP 36.9; O2SAT 91
[2017-07-27 23:35] LABS: PARTIAL THROMBOPLASTIN RATIO 4.8
[2017-07-28] MEDS: HEPARIN 25,000 UNIT/500ML D5W 500 ML IV PRN ×2 (00:45→19:44)
[2017-07-28 03:42] VITALS: BP 112/66; PULSE 72; TEMP 37.4; O2SAT 97
[2017-07-28] MEDS: NITROGLYCERIN OINT 2% 1GM PACKET EXT SCH ×4 (06:00→17:43)
[2017-07-28] MEDS: LEVOTHYROXINE 50 MCG TAB PO SCH (06:26)
[2017-07-28 08:17] VITALS: BP 129/77; PULSE 71; TEMP 37; O2SAT 96
[2017-07-28 08:24] LABS: HEMATOCRIT 36.7 % (37-47); MEAN CELL VOLUME 92.9 fL (80-100); MEAN CORPUSCULAR HEMOGLOBIN 29.9 pg (25-34); MEAN CORPUSCULAR HGB CONC 32.2 g/dl (32-36); MEAN PLATELET VOLUME 11.3 fL (7.4-10.4); PLATELET COUNT 216 K/uL (130-400); RED BLOOD COUNT 3.95 M/uL (4.2-5.4); WHITE BLOOD COUNT 9.71 K/uL (4.8-10.8)
[2017-07-28 08:35] LABS: ESTIMATED AVERAGE GLUCOSE 209 mg/dl; HA1C FLAG Normal (Normal)
[2017-07-28 08:36] LABS: PARTIAL THROMBOPLASTIN RATIO 1.7
[2017-07-28 08:54] LABS: BUN/CREATININE RATIO 13.9 (10-20); CALCIUM 8.5 mg/dl (8.5-10.1); CREATININE 2.3 mg/dl (0.60-1.20)
[2017-07-28] MEDS ORDERED: FUROSEMIDE 20 MG TAB PO SCH (09:00)
[2017-07-28] MEDS: ASPIRIN 81 MG ECTAB PO SCH (09:12)
[2017-07-28] MEDS: LOSARTAN POTASSIUM 25 MG TAB PO SCH (09:12)
[2017-07-28] MEDS: AMLODIPINE BESYLATE 5 MG TAB PO SCH (09:12)
[2017-07-28] MEDS: METOPROLOL SUCC 50MG EXT REL TAB PO SCH (09:12)
[2017-07-28] MEDS: CLOPIDOGREL BISULFATE 75 MG TAB PO SCH (09:12)
[2017-07-28 09:13] LABS: CHOLESTEROL/HDL RATIO 1.7; THYROID STIMULATING HORMONE 1.31 uIu/ml (0.300-4.500)
[2017-07-28] MEDS: DOCUSATE SODIUM/SENNA 50/8.6MG TAB PO SCH (09:13)
[2017-07-28] MEDS: QUETIAPINE FUMARATE 25 MG TAB PO SCH ×2 (09:13→20:32)
[2017-07-28] MEDS: FAMOTIDINE 20 MG TAB PO SCH ×2 (09:13→20:32)
[2017-07-28] MEDS: CHOLECALCIFEROL 1000 INTER.UNIT TAB PO SCH ×2 (09:13→20:32)
[2017-07-28] MEDS: DORZOLAMIDE/TIMOLOL 22.3/6.8MG/ML 10 ML BTL OP SCH ×2 (09:14→20:35)
[2017-07-28] MEDS: FLUTICASONE PROPIONATE NA SPR 16 GM BTL NAE SCH ×2 (09:14→20:35)
[2017-07-28] MEDS: INSULIN ASPART 100 UNITS/ML 3 ML PEN SQ SCH ×4 (09:29→20:34)
--- NOTE | 2017-07-28 09:29 | Progress Note ---
Internal Med Progress Note Date of Service: Jul 28, 2017. Provider Documentation: SUBJECTIVE: Seen and examined at bedside States feeling better today Denies chest pain, SOB, dizziness, N/V/Abd pain Currently on Heparin ggt Offers no other complaints OBJECTIVE: Vital Signs-as noted below Physical Exam: General Appearance:Moderately built and nourished, no apparent distress Head: normocephalic, Atraumatic Eyes: normal inspection, EOMI, PERRL Neck: supple, Trachea midline Respiratory/Chest: Diminished breath sounds, Basal creps Cardiovascular: S1, S2, No murmur Abdomen/GI:Soft, Non tender, Bowel sounds present Extremities/Musculoskelatal:normal inspection, Trace edema Neurologic/Psych:AAOX3, grossly no focal neurological deficits Skin: normal color, warm Lab data as noted below. ASSESSMENT & PLAN: NSTEMI H/O multivessel CAD s/p inferior [place] 2010 Poor candidate for PCI/CABG Continue IV heparin for 48 hours Continue ASA, plavix, BB, Imdur, losartan, Statin Appreciate Cardiology Input ECHO as below Acute on Chronic Systolic/Diastolic heart failure H/O respiratory failure February 2016 necessitating intubation Developed hypoxia in ED after receiving IV fluids. S/P IV lasix Monitor I/Os, daily weight Currently saturating 96% on 2L NC CXR: suggestive of pulmonary edema. ECHO: EF: 40-45% Continue losartan HTN: Continue metoprolol, amlodipine, losartan, nitrates Monitor CKD IV Cr at baseline Monitor renal function Avoid potential nephrotoxins DM II: uncontrolled Continue Lantus, ISS A1C:8.9 DYSLIPIDEMIA Continue pravastatin HYPOTHYROIDISM S/P thyroidectomy for toxic multinodular goiter. TSH: normal Continue levothyroxine H/O VISUAL HALLUCINATIONS / H/O DELIRIUM Hospitalized twice over past year for altered mental status associated with visual hallucinations. Has underlying mild dementia. continue home meds monitor GLAUCOMA Continue Cosopt. VTE PX On IV heparin ggt CODE STATUS: Full code. DISPOSITION Monitor in Tele Discharge disposition to be determined Internal Medicine follow-up with Dr. La. Cardiology follow-up with Dr. Ruffin. PROCEDURES: ECHO: * Moderate left ventricular systolic dysfunction. * Apical akinesis. Lateral, posterior, and inferior hypokinesis. Anteroseptal akinesis. * Mild concentric left ventricular hypertrophy. * Grade 2 left ventricular diastolic dysfunction. * Mild left atrial dilatation. * Aortic valve sclerosis without significant stenosis. * Moderate mitral regurgitation. * Trace pulmonic regurgitation. * Trace to mild tricuspid regurgitation. * Mildly elevated estimated right ventricular systolic pressure. Vital Signs: Date Time Temp Pulse Resp B/P (MAP) Pulse Ox O2 Delivery O2 Flow Rate FiO2 07/28/17 08:17 37.0 71 20 129/77 (94) 96 Nasal Cannula 2.0 07/28/17 04:00 Nasal Cannula 2.0 07/28/17 03:42 37.4 72 18 112/66 (81) 97 Nasal Cannula 2.0 07/28/17 00:20 Nasal Cannula 2.0 07/27/17 23:04 36.9 80 18 99/64 (76) 91 Nasal Cannula 2.0 07/27/17 20:00 Nasal Cannula 2.0 07/27/17 19:54 36.8 66 18 113/69 (84) 93 Nasal Cannula 2.0 07/27/17 19:30 100 Nasal Cannula 3.0 07/27/17 16:05 Nasal Cannula 2.0 07/27/17 15:17 36.7 68 16 120/69 (86) 91 Nasal Cannula 2.0 07/27/17 11:34 36.6 86 20 144/82 (102) 100 Nasal Cannula 3.0 07/27/17 11:08 88 22 143/77 97 07/27/17 10:49 88 22 143/77 97 Nasal Cannula 3.5 07/27/17 10:15 85 Lab Results: Results Past 24 Hours Test 07/27/17 12:08 07/27/17 16:38 07/27/17 16:41 07/27/17 20:44 Range/Units Bedside Glucose 361 192 106 70-90 mg/dl Activated Partial Thromboplast Time 40.6 21.0-31.0 SECONDS Partial Thromboplastin Ratio 1.6 Potassium Level 4.5 3.5-5.1 mmol/L Total Creatine Kinase 899 26-192 U/L Creatine Kinase MB 104.5 0.5-3.6 ng/ml Creatine Kinase MB Ratio 11.6 0-3.0 Troponin I 37.900 0-0.045 ng/ml Test 07/27/17 22:56 07/28/17 06:30 07/28/17 08:12 Range/Units Activated Partial Thromboplast Time 125.6 44.2 21.0-31.0 SECONDS Partial Thromboplastin Ratio 4.8 1.7 Total Creatine Kinase 764 600 26-192 U/L Creatine Kinase MB 76.2 41.7 0.5-3.6 ng/ml Creatine Kinase MB Ratio 10.0 7.0 0-3.0 Troponin I 44.700 25.500 0-0.045 ng/ml Bedside Glucose 91 70-90 mg/dl White Blood Count 9.71 4.8-10.8 K/uL Red Blood Count 3.95 4.2-5.4 M/uL Hemoglobin 11.8 12.0-16.0 g/dL Hematocrit 36.7 37-47 % Mean Corpuscular Volume 92.9 80-100 fL Mean Corpuscular Hemoglobin 29.9 25-34 pg Mean Corpuscular Hemoglobin Concent 32.2 32-36 g/dl RDW Standard Deviation 46.3 36.4-46.3 fL RDW Coefficient of Variation 13.5 11.5-14.5 % Platelet Count 216 130-400 K/uL Mean Platelet Volume 11.3 7.4-10.4 fL Sodium Level 134 136-145 mmol/L Potassium Level 4.0 3.5-5.1 mmol/L Chloride Level 101 98-107 mmol/L Carbon Dioxide Level 25 21-32 mmol/L Anion Gap 8.0 3-11 mmol/L Blood Urea Nitrogen 32 7-18 mg/dl Creatinine 2.30 0.60-1.20 mg/dl Est Creatinine Clear Calc Drug Dose 17.4 ml/min Estimated GFR () 22.2 Estimated GFR (Non- 19.2 BUN/Creatinine Ratio 13.9 10-20 Random Glucose 161 70-99 mg/dl Estimated Average Glucose 209 mg/dl Hemoglobin A1c 8.9 4.5-5.6 % Calcium Level 8.5 8.5-10.1 mg/dl Triglycerides Level 81 0-150 mg/dl Cholesterol Level 125 0-200 mg/dl HDL Cholesterol 72 mg/dl LDL Cholesterol, Calculated 37 mg/dl VLDL Cholesterol, Calculated 16 mg/dl Cholesterol/HDL Ratio 1.7 Thyroid Stimulating Hormone (TSH) 1.310 0.300-4.500 uIu/ml
[2017-07-28] MEDS: INSULIN GLARGINE SOLOSTAR 100 UNITS/ML 3 ML PEN SQ SCH ×2 (09:30→20:33)
[2017-07-28] MEDS ORDERED: HEPARIN IV BOLUS 2,000 UNIT in SYRINGE 0 ML IV ONE (09:30)
[2017-07-28] MEDS: MICONAZOLE NITRATE 2% CR 30 GM TUBE EXT SCH ×2 (10:15→20:33)
[2017-07-28] MEDS ORDERED: PHARMACY GLYCEMIC MGMT CONSULT SCH (10:47)
--- NOTE | 2017-07-28 11:03 | Pharmacy Progress Note ---
Glycemic Control Intl Consult Date of Service Jul 28, 2017. Scope Glycemic Pharmacist consulted by Dr Verdugo on 07/28/17 for glycemic control and to write orders per [facility] inpatient glycemic control protocol Objective Weight (Kilograms): 78.000 Accuchecks BSG (last 24hrs): Test 07/27/17 12:08 07/27/17 16:38 07/27/17 20:44 07/28/17 06:30 Bedside Glucose 361 mg/dl (70-90) 192 mg/dl (70-90) 106 mg/dl (70-90) 91 mg/dl (70-90) Test 07/28/17 08:12 Random Glucose 161 mg/dl (70-99) Laboratory Data (last 24hrs) Test 07/27/17 16:41 07/28/17 08:12 Potassium Level 4.5 mmol/L 4.0 mmol/L Anion Gap 8.0 mmol/L BUN/Creatinine Ratio 13.9 Blood Urea Nitrogen 32 mg/dl Creatinine 2.30 mg/dl Hemoglobin A1c 8.9 % Sodium Level 134 mmol/L White Blood Count 9.71 K/uL HbA1c Test 07/28/17 08:12 Hemoglobin A1c 8.9 % (4.5-5.6) H Recent Pertinent Medications Outpatient Anti-diabetic Regimen: * Lantus 13 units BID * Novolog 10 units AC * A1c = 8.9 % 07/28/17 The patient is currently receiving: * Basal insulin: Lantus every 12 hours * BSG < 81mg/dl - 0 units * BSG 81-100mg/dl - 10 units * BSG 101-160mg/dl - 14 units * BSG >160mg/dl - 18 units * Correctional Insulin: Novolog Correction per scale AC Goal Range: Low 100 mg/dL - High 160 mg/dL Correction Factor: 30 mg/dL/unit * Prandial insulin: Per carb ratio of 1 unit per 10 grams CHO consumed Risk Factors for Insulin Resistance: * IVF: Heparin drip mixed in dextrose * Diet: Clears, type 2 DM Assessment & Plan ASSESSMENT: * 81 year old female, uncontrolled type 2 diabetic, A1c 8.9%, admitted with FL and BSG = 361mg/dl * Novolog CF and CR ordered AC, will also order HS, continue current CF and CR and titrate * Lantus ordered per BSG, will continue scale at this time and titrate * ADA & AACE recommend a goal blood sugar range 140-180 mg/dl for the majority of critically ill & non-critically ill patients. However, more stringent targets may be selected in individual cases. Will change range to 120-160mg/dl for patient's A1c and age. PLAN FOR INPATIENT GLYCEMIC CONTROL: * Continue Basal insulin: Lantus every 12 hours * BSG < 81mg/dl - 0 units * BSG 81-100mg/dl - 10 units * BSG 101-160mg/dl - 14 units * BSG >160mg/dl - 18 units * Correctional Insulin with NOVOLOG per scale ACHS or Q6hrs while NPO * Goal Range: Low 120 mg/dL - High 160 mg/dL * Correction Factor: 30 mg/dL/unit * Nutritional / Prandial insulin per carb ratio of 1 unit per 10 grams CHO consumed * Please note that the plan above was derived based on current level of insulin resistance and hospital stress. These recommendations are appropriate for inpatient admission only. Plan of care upon discharge will need to be reassessed to avoid potential outpatient hypo/hyperglycemia. Thank you.
[2017-07-28] MEDS ORDERED: LEVOTHYROXINE 50 MCG TAB PO ONE (11:45)
[2017-07-28] MEDS ORDERED: CLOPIDOGREL BISULFATE 75 MG TAB PO ONE (11:45)
[2017-07-28] MEDS ORDERED: DOCUSATE SODIUM/SENNA 50/8.6MG TAB PO ONE (11:45)
--- NOTE | 2017-07-28 12:20 | CARDIOLOGY PROGRESS NOTE ---
DATE: 07/28/2017 SUBJECTIVE: The patient was seen by me this morning in the telemetry unit room. She is feeling better than yesterday. Her dyspnea has resolved. She denies any orthopnea or PND overnight. No epigastric or lower retrosternal chest tightness today. She does complain of a vague midscapular pain. No abdominal pain or nausea. Her appetite is good. She desires to be advanced to solid foods in her diet. She receives a clear liquid breakfast. No fevers or chills. No complaint of cough today. No cerebrovascular or peripheral vascular complaints. She denies any leg pain. No urinary complaints. CURRENT MEDICATIONS: Calcitriol 0.25 mcg on Mondays, Wednesdays, and Fridays; NovoLog sliding scale insulin; miconazole nitrates cream 1 application b.i.d.; amlodipine 10 mg daily; aspirin 81 mg daily; clopidogrel 75 mg daily; furosemide 20 mg daily; losartan 25 mg daily; metoprolol succinate ER 200 mg daily; Seroquel 12.5 mg q.a.m.; Seroquel 25 mg at bedtime; levothyroxine 50 mcg daily; Cosopt eyedrops daily; famotidine 20 mg b.i.d.; fluticasone 2 sprays b.i.d.; Lantus insulin b.i.d.; pravastatin 40 mg daily; vitamin D 1000 units b.i.d.; nitroglycerin ointment 1 inch q. 6 hours; intravenous heparin by weight based protocol; and several p.r.n. medications. ALLERGIES AND ADVERSE DRUG REACTIONS: As documented in my consult. Please see EHR. Her allergies were reviewed by me today. Monitor history since admission reveals sinus rhythm. One ventricular triplet. No ectopy more complex than this. Intake and output yesterday reported to be 480/800. Today's weight 78 kg. Yesterday's weight reported to be 82 kg. PHYSICAL EXAMINATION: VITAL SIGNS: Most recent vital signs with oral temperature 37, pulse 71, blood pressure 129/77, and pulse oximetry on 2 liters per minute nasal cannula oxygen 96%. NECK: Jugular venous pressure approximately 8 cm. LUNGS: Normal respiratory effort. Decreased breath sounds at bases. Bibasilar rales. Decreased from yesterday's exam. HEART: Distant heart sounds. Regular rate and rhythm. Aortic valvular closing sound is present. 1/6 systolic murmur at the second right intercostal space. No diastolic murmur or rub. No S3 or S4 heard. PMI not palpable. No lifts or heaves. ABDOMEN: Soft. Nontender. No palpable masses or organomegaly. No bruits. Normal bowel sounds. EXTREMITIES: No pretibial edema. No calf tenderness. NEUROLOGIC: Alert and oriented x3. Motor grossly intact. PSYCHIATRIC: Affect normal. DIAGNOSTIC STUDIES: Electrocardiogram today was reviewed and interpreted by me. It revealed sinus rhythm, left axis deviation, ST and T wave abnormalities consistent with lateral ischemia, no significant change compared to yesterday's electrocardiogram other than T-wave abnormalities in the anterior leads were more prominent. Lateral ST and T-wave changes without significant change. LABORATORY DATA: This morning with sodium 134, potassium 4.0, chloride 101, carbon dioxide 25, BUN 32, creatinine 2.30, and random glucose 161. CK total 600 with MB of 41.7. Troponin I is 25.500. Last evening, CK total 764 with MB of 76.2. Troponin I was 44.7. Lipid profile this morning with triglycerides 81, total cholesterol 125, HDL 72, and calculated LDL 37. TSH this morning is 1.310. Hemoglobin A1c 8.9. ASSESSMENT: 1. Status post non-ST elevation myocardial infarction. Resolution of epigastric and lower retrosternal chest pressure, which was present yesterday. She does complain of vague midscapular pain. This could be musculoskeletal in origin. 2. Ischemic cardiomyopathy with moderate left ventricular systolic dysfunction. She also has left ventricular diastolic dysfunction. Lateral, apical, posterior, anterior septal, and inferior wall motion abnormalities. 3. Acute on chronic systolic and diastolic congestive heart failure. Her dyspnea and oxygen saturation have improved since yesterday afternoon. She has no dyspnea lying in bed this morning. She is only using 1 pillow. Her oxygen saturation is good. She does have mild rales on exam. They are less intense than yesterday afternoon. Atelectasis could certainly be a component. Her intake and output do not reflect any significant diuresis yesterday. However, today's weight has significantly decreased from yesterday's. Note, the reported urine output could be spurious. 4. No significant arrhythmias. 5. Blood pressure and heart rate well controlled. 6. Prior cardiac catheterization in 2010 with severe and diffuse 3-vessel coronary artery disease. Her coronary arteries were of small to very small caliber. Because of the caliber of her vessels and the diffuse nature of her atherosclerotic disease, she was not a good candidate for a revascularization procedure. This would be either percutaneous coronary intervention or coronary artery bypass grafting. 7. Chronic kidney disease. Renal function relatively stable compared to yesterday. 8. Potassium today normal. 9. Dyslipidemia. Excellent control of LDL and good HDL on testing today. 10. Diabetes mellitus. Elevated hemoglobin A1c. RECOMMENDATIONS: 1. Continue current dose of metoprolol. 2. If her renal function remains stable, we will consider increasing losartan dose to 50 mg daily. 3. Continue topical nitrate today. Switch back to isosorbide mononitrate tomorrow. 4. Continue aspirin and clopidogrel. 5. Continue intravenous heparin for at least a total of 48 hours. 6. Increase daily oral furosemide to 40 mg daily. 7. Continue to monitor renal function. 8. Increase activities as tolerated. 9. Advance diet to solid food. 10. Conservative medical management of her underlying coronary artery disease. RONALD
[2017-07-28 15:26] VITALS: BP 110/59; PULSE 64; TEMP 37.9; O2SAT 91
[2017-07-28 16:03] LABS: PARTIAL THROMBOPLASTIN RATIO 2.6
[2017-07-28 20:00] VITALS: BP 114/55; PULSE 64; TEMP 37.3; O2SAT 93
[2017-07-28] MEDS: PRAVASTATIN SOD 40 MG TAB PO SCH (20:32)
[2017-07-28 23:59] VITALS: BP 90/54; PULSE 60; TEMP 37.6; O2SAT 92
[2017-07-29] VITALS (11 sets, daily range): BP systolic 96–151; BP diastolic 52–92; PULSE 58–88; TEMP 36.2–37.5; O2SAT 75–98
[2017-07-29 06:04] LABS: HEMATOCRIT 31.1 % (37-47); MEAN CELL VOLUME 93.7 fL (80-100); MEAN CORPUSCULAR HEMOGLOBIN 30.4 pg (25-34); MEAN CORPUSCULAR HGB CONC 32.5 g/dl (32-36); MEAN PLATELET VOLUME 11.4 fL (7.4-10.4); PLATELET COUNT 181 K/uL (130-400); RED BLOOD COUNT 3.32 M/uL (4.2-5.4); WHITE BLOOD COUNT 6.91 K/uL (4.8-10.8)
[2017-07-29] MEDS: LEVOTHYROXINE 50 MCG TAB PO SCH (06:23)
[2017-07-29] MEDS: NITROGLYCERIN OINT 2% 1GM PACKET EXT SCH ×4 (06:23→17:22)
[2017-07-29 06:39] LABS: CALCIUM 8.2 mg/dl (8.5-10.1); CREATININE 2.5 mg/dl (0.60-1.20); MAGNESIUM 2.6 mg/dl (1.8-2.4); POTASSIUM 4.1 mmol/L (3.5-5.1)
[2017-07-29] MEDS: METOPROLOL SUCC 50MG EXT REL TAB PO SCH (08:30)
[2017-07-29] MEDS: LOSARTAN POTASSIUM 25 MG TAB PO SCH (08:30)
[2017-07-29] MEDS: CLOPIDOGREL BISULFATE 75 MG TAB PO SCH (08:31)
[2017-07-29] MEDS: FUROSEMIDE 40 MG TAB PO SCH (08:31)
[2017-07-29] MEDS: FLUTICASONE PROPIONATE NA SPR 16 GM BTL NAE SCH ×2 (08:31→21:00)
[2017-07-29] MEDS: MICONAZOLE NITRATE 2% CR 30 GM TUBE EXT SCH ×2 (08:31→21:10)
[2017-07-29] MEDS: ASPIRIN 81 MG ECTAB PO SCH (08:31)
[2017-07-29] MEDS: DORZOLAMIDE/TIMOLOL 22.3/6.8MG/ML 10 ML BTL OP SCH ×2 (08:31→21:10)
[2017-07-29] MEDS: AMLODIPINE BESYLATE 5 MG TAB PO SCH (08:31)
[2017-07-29] MEDS: FAMOTIDINE 20 MG TAB PO SCH ×2 (08:32→21:10)
[2017-07-29] MEDS: QUETIAPINE FUMARATE 25 MG TAB PO SCH ×2 (08:32→21:10)
[2017-07-29] MEDS: DOCUSATE SODIUM/SENNA 50/8.6MG TAB PO SCH (08:32)
[2017-07-29] MEDS: CHOLECALCIFEROL 1000 INTER.UNIT TAB PO SCH ×2 (08:32→21:10)
[2017-07-29] MEDS: ONDANSETRON INJ 2 MG/ML 2 ML VIAL IV PRN ×2 (08:37→17:05)
[2017-07-29] MEDS: INSULIN ASPART 100 UNITS/ML 3 ML PEN SQ SCH ×4 (08:52→21:12)
[2017-07-29] MEDS: INSULIN GLARGINE SOLOSTAR 100 UNITS/ML 3 ML PEN SQ SCH ×2 (08:52→21:13)
--- NOTE | 2017-07-29 11:28 | Progress Note ---
Internal Med Progress Note Date of Service: Jul 29, 2017. Provider Documentation: SUBJECTIVE: Seen and examined at bedside Doing well this morning Chest pain resolved Still on Heparin ggt Denies SOB, dizziness, N/V/Abd pain Offers no other complaints No obvious source of bleeding OBJECTIVE: Vital Signs-as noted below Physical Exam: General Appearance:Moderately built and nourished, no apparent distress Head: normocephalic, Atraumatic Eyes: normal inspection, EOMI, PERRL Neck: supple, Trachea midline Respiratory/Chest: Diminished breath sounds, Basal creps Cardiovascular: S1, S2, No murmur Abdomen/GI:Soft, Non tender, Bowel sounds present Extremities/Musculoskelatal:normal inspection, Trace edema Neurologic/Psych:AAOX3, grossly no focal neurological deficits Skin: normal color, warm Lab data as noted below. ASSESSMENT & PLAN: NSTEMI H/O multivessel CAD s/p inferior MO 2010 Poor candidate for PCI/CABG Continue IV heparin for 48 hours Continue ASA, plavix, BB, Imdur, losartan, Statin Appreciate Cardiology Input ECHO as below Plan to started on Imdur by cardiology today Acute on Chronic Systolic/Diastolic heart failure H/O respiratory failure February 2016 necessitating intubation Developed hypoxia in ED after receiving IV fluids. S/P IV lasix Monitor I/Os, daily weight CXR: suggestive of pulmonary edema. ECHO: EF: 40-45% Continue losartan, lasix per cardiology HTN: Continue metoprolol, amlodipine, losartan Monitor Also on lasix CKD IV Cr trending up likely secondary to diuretics/losartan Monitor renal function DM II: uncontrolled Continue Lantus, ISS A1C:8.9 CHRONIC ANEMIA: Hb around 11.0 in Feb Monitor Hb DYSLIPIDEMIA Continue pravastatin HYPOTHYROIDISM S/P thyroidectomy for toxic multinodular goiter. TSH: normal Continue levothyroxine H/O VISUAL HALLUCINATIONS / H/O DELIRIUM Hospitalized twice over past year for altered mental status associated with visual hallucinations. Has underlying mild dementia. continue home meds monitor GLAUCOMA Continue Cosopt. VTE PX On IV heparin ggt CODE STATUS: Full code. DISPOSITION Monitor in Tele Discharge disposition to be determined Internal Medicine follow-up with Dr. La. Cardiology follow-up with Dr. Ruffin. PROCEDURES: ECHO: * Moderate left ventricular systolic dysfunction. * Apical akinesis. Lateral, posterior, and inferior hypokinesis. Anteroseptal akinesis. * Mild concentric left ventricular hypertrophy. * Grade 2 left ventricular diastolic dysfunction. * Mild left atrial dilatation. * Aortic valve sclerosis without significant stenosis. * Moderate mitral regurgitation. * Trace pulmonic regurgitation. * Trace to mild tricuspid regurgitation. * Mildly elevated estimated right ventricular systolic pressure. Vital Signs: Date Time Temp Pulse Resp B/P (MAP) Pulse Ox O2 Delivery O2 Flow Rate FiO2 07/29/17 08:04 37.5 63 20 113/71 (85) 98 Room Air 07/29/17 06:10 37.2 63 18 123/71 (88) 93 Nasal Cannula 4.0 07/29/17 04:00 Nasal Cannula 4.0 07/28/17 23:59 37.6 60 20 90/54 (66) 92 Nasal Cannula 3.0 07/28/17 23:59 Nasal Cannula 4.0 07/28/17 20:00 37.3 64 18 114/55 (74) 93 Nasal Cannula 4.0 07/28/17 20:00 Nasal Cannula 4.0 07/28/17 16:00 Room Air 07/28/17 15:26 37.9 64 16 110/59 (76) 91 Nasal Cannula 2.0 07/28/17 12:00 Room Air Lab Results: Results Past 24 Hours Test 07/28/17 15:38 07/28/17 16:30 07/28/17 20:28 07/28/17 20:59 Range/Units Activated Partial Thromboplast Time 67.8 21.0-31.0 SECONDS Partial Thromboplastin Ratio 2.6 Bedside Glucose 146 164 196 70-90 mg/dl Test 07/29/17 05:33 Range/Units White Blood Count 6.91 4.8-10.8 K/uL Red Blood Count 3.32 4.2-5.4 M/uL Hemoglobin 10.1 12.0-16.0 g/dL Hematocrit 31.1 37-47 % Mean Corpuscular Volume 93.7 80-100 fL Mean Corpuscular Hemoglobin 30.4 25-34 pg Mean Corpuscular Hemoglobin Concent 32.5 32-36 g/dl RDW Standard Deviation 46.2 36.4-46.3 fL RDW Coefficient of Variation 13.4 11.5-14.5 % Platelet Count 181 130-400 K/uL Mean Platelet Volume 11.4 7.4-10.4 fL Activated Partial Thromboplast Time 52.7 21.0-31.0 SECONDS Partial Thromboplastin Ratio 2.0 Sodium Level 137 136-145 mmol/L Potassium Level 4.1 3.5-5.1 mmol/L Chloride Level 103 98-107 mmol/L Carbon Dioxide Level 28 21-32 mmol/L Anion Gap 6.0 3-11 mmol/L Blood Urea Nitrogen 42 7-18 mg/dl Creatinine 2.50 0.60-1.20 mg/dl Est Creatinine Clear Calc Drug Dose 16.2 ml/min Estimated GFR () 20.1 Estimated GFR (Non- 17.3 BUN/Creatinine Ratio 17.0 10-20 Random Glucose 113 70-99 mg/dl Calcium Level 8.2 8.5-10.1 mg/dl Magnesium Level 2.6 1.8-2.4 mg/dl
--- NOTE | 2017-07-29 14:06 | PROGRESS NOTE ---
DATE: 07/29/2017 SUBJECTIVE: The patient was seen by me early this morning in her telemetry unit room. She states that this morning she had an episode of nausea. This was accompanied by intermittent and brief sensations of epigastric pressure. She denies that the epigastric pressure and tightness was sustained. Currently, she has no chest or abdominal or epigastric discomfort. No nausea. She denies any orthopnea or PND overnight. No complaints of dyspnea today. No palpitations, lightheadedness, or syncope. No bleeding complaints. No leg pain. No cerebrovascular complaints. The nursing staff noted that she did have an episode of confusion last night. MEDICATIONS: This morning were calcitriol 0.25 mcg Mondays, Wednesdays, and Fridays; NovoLog sliding scale insulin; amlodipine 10 mg daily; aspirin 81 mg daily; clopidogrel 75 mg daily; losartan 25 mg daily; metoprolol succinate ER 200 mg daily; Seroquel 12.5 mg daily a.m. and 25 mg at bedtime; Senokot 1 tab daily; Cosopt eyedrops b.i.d.; famotidine 20 mg b.i.d.; fluticasone nasal spray 2 sprays b.i.d.; Lantus insulin b.i.d.; pravastatin 40 mg daily; vitamin D 1000 units b.i.d.; nitroglycerin ointment 1 inch q. 6 hours; intravenous heparin by weight based protocol; and several p.r.n. medications. ALLERGIES: Noted in the EHR. Reviewed by me. Intake and output yesterday reported to be 909/1050. Today's weight 79.2 kg. Yesterday's weight 78 kg. Monitor history over the past 24 hours reviewed by me. Sinus rhythm. No arrhythmias. PHYSICAL EXAMINATION: VITAL SIGNS: Late this morning with oral temperature 36.9, pulse 58, blood pressure 96/52, pulse oximetry on 3 liters per nasal cannula oxygen 98%. Earlier today it was reported that her room air oxygen saturation was 98%. GENERAL APPEARANCE: Shows her to be sitting in a chair by her bedside. No distress. NECK: Jugular venous pressure less than 7 cm. LUNGS: Normal respiratory effort. Decreased breath sounds at bases. No rales heard today. HEART: Distant heart sounds. Regular rate and rhythm. Aortic valvular closing sound is present. 1/6 systolic murmur, second right intercostal space. No diastolic murmur or rub heard. No S3 or S4 heard. ABDOMEN: Normal bowel sounds. No bruits. Soft. Nontender. No palpable masses or organomegaly. EXTREMITIES: No pretibial edema. No calf tenderness. NEUROLOGIC: Alert and oriented x3. PSYCHIATRIC: Affect is normal. Electrocardiogram today reviewed and interpreted by me revealed sinus rhythm, left axis deviation, ST and T-wave abnormalities consistent with lateral ischemia. Compared to electrocardiogram of 07/28/2017, no significant change. LABORATORY DATA: Labs today with WBC 6.91, hemoglobin 10.1, hematocrit 31.1, platelet count 181. PTT was 52.7. Metabolic profile; sodium 137, potassium 4.1, chloride 103, carbon dioxide 28, BUN 42, creatinine 2.50, magnesium 2.6. Echocardiogram on 07/27/2017 with moderate LV systolic dysfunction, apical and anteroseptal akinesis. Lateral, posterior, and inferior hypokinesis. Mild LVH. Grade II LV diastolic dysfunction. Mild elevated estimated right ventricular systolic pressure. Aortic valve sclerosis without significant stenosis. Moderate mitral regurgitation. Trace to mild tricuspid regurgitation. ASSESSMENT: 1. Status post non-ST elevation myocardial infarction. No further complaints of sustained epigastric and lower retrosternal chest tightness. Brief episode this morning of nausea. Intermittent epigastric discomfort at that time. It was not sustained. She states it would come on for several seconds and then relieved. 2. Improving acute on chronic systolic and diastolic heart failure. No rales noted on exam today. 3. Chronic kidney disease. BUN and creatinine increased from yesterday. 4. No arrhythmias. 5. Known diffuse 3-vessel coronary artery disease. Small to very small caliber coronary arteries. Poor candidate for percutaneous coronary intervention or coronary artery bypass grafting. 6. Anemia. No symptoms of bleeding. Her hemoglobin has decreased since admission. This is despite probable intravascular volume depletion from her diuresis. RECOMMENDATIONS: 1. Hold furosemide tomorrow morning. Revaluate renal function in a.m. Determine need for diuretic tomorrow morning based on symptoms, clinical evaluation, and labs. 2. Hold losartan in a.m. pending review of tomorrow's metabolic profile. 3. Discontinue heparin. 4. Monitor hemoglobin and renal function daily. 5. Increase activity as tolerated. 6. Case management evaluation. The patient lives alone. The patient may require post-hospitalization rehabilitation therapy.
[2017-07-29 18:53] LABS: HEMATOCRIT 36.2 % (37-47)
--- NOTE | 2017-07-29 19:05 | Progress Note ---
Progress Note Date of Service Jul 29, 2017. Progress Note Received page from RN, patient is complaining of SOB and is desaturating on Nasal cannula. On examination, patient had decreased BS and is in respiratory distress. Stat CXR and cardiac enzymes were ordered and patient is placed on BiPAP. Patient states she is feeling slightly better. CXR suggestive of volume overload, will give a dose of lasix. Updated family (POA) about the patient's condition. Currently Vitals are stable. Will get ABG. Updated ICU team and cardiology for possible transfer to ICU. Will update Nocturnal Hospitalist.
--- NOTE | 2017-07-29 19:16 | DIAGNOSTIC IMAGING REPORT ---
CHEST ONE VIEW PORTABLE CLINICAL HISTORY: 81 years-old Female presenting with hypoxia. TECHNIQUE: Portable upright AP view of the chest was obtained. COMPARISON: 07/27/2017. FINDINGS: Atherosclerosis of aortic arch. Prominence of the mediastinal contour unchanged. Heart top normal in size. Increased prominence of pulmonary vasculature with perihilar vascular indistinctness. Improved aeration at the right lung base. No large effusion or pneumothorax. Osseous structures normal. Upper abdomen normal. IMPRESSION: 1. Prominent pulmonary vasculature with perihilar vascular indistinctness could suggest volume overload/developing pulmonary edema. No focal infiltrate. 2. Improved aeration at the right lung base. Electronically signed by: Jourdan Sotelo M.D. 07/29/2017 7:15 PM Dictated Date/Time: 07/29/2017 7:13 PM
[2017-07-29] MEDS ORDERED: FUROSEMIDE INJ 20 MG in SYRINGE 0 ML IV SCH ×2 (19:45→20:00)
[2017-07-29 19:54] LABS: ARTERIAL BLD GAS O2 SATURATION 96.1 % (90-95); ARTERIAL BLOOD GAS BASE EXCESS 1.2 mEq/L (-9-1.8); ARTERIAL BLOOD GAS HCO3 25 mmol/L (19-24); ARTERIAL BLOOD GAS PO2 85 mm/Hg (80-95); ARTERIAL BLOOD GAS pH 7.45 (7.35-7.45)
[2017-07-29 19:55] LABS: ALLEN TEST POS (POS); O2 ADMINISTRATION FIO2 60%
[2017-07-29] MEDS ORDERED: ALBUT/IPRATROP 3MG/0.5MG NEB 3 ML VIAL INH STA (19:55)
[2017-07-29] MEDS ORDERED: ALBUT/IPRATROP 3MG/0.5MG NEB 3 ML VIAL INH PRN (20:00)
[2017-07-29] MEDS: PRAVASTATIN SOD 40 MG TAB PO SCH (21:10)
[2017-07-30] VITALS (14 sets, daily range): BP systolic 104–145; BP diastolic 63–76; PULSE 58–84; TEMP 36.8–37.4; O2SAT 92–100; BMI 33.8
--- NOTE | 2017-07-30 00:57 | Critical Care Progress Note ---
Critical Care Progress Note Date of Service Jul 29, 2017. Critical Care Progress Note I was called by Dr. Verdugo to make me aware of a pt whom he was concerned for possible respiratory decline. There was fear of decompensation while on nasal cannula. Pt was placed on BiPap and was to receive Lasix after complaining that she felt like she was going to "explode" and decompensated into to 75% on 4L nasal cannula. I arrived to examine the pt and found her stable on BiPap with no adventitious breath sounds and was currently 94% on 10/60%. Pts vital signs were stable and she was in no distress. She was mentating well and did state if her breathing declined, she would elect to be intubated. Otherwise, she had no complaints. I reviewed pts labs and imaging which do demonstrated vascular congestion. I asked Dr. Verdugo to ordered an ABG prior to my examination which was 7.45/37/85/25. From a Critical Care stand point, pt does not currently meet ICU criteria. However, I did speak with pts nurse and made her aware that I was asked to check on her pt. She understood that if she observed any decline in the pts status or increase in work of breathing to contact me for transfer to the unit. I did inform her that I was in the ICU overnight. I have rechecked pts vitals at the time of this note and she remains stable with Saturations rising. PLAN: Her FIO2 could likely be weaned overnight. Repeat CXR in AM and trial nasal cannula. Rm has been placed; continue to monitor fluid status. Contact ICU if pts respiratory status declines. I agree with assessment and plan of Estella Colon PA-C.
[2017-07-30] MEDS: LEVOTHYROXINE 50 MCG TAB PO SCH (06:03)
[2017-07-30] MEDS: NITROGLYCERIN OINT 2% 1GM PACKET EXT SCH ×4 (06:04→18:43)
[2017-07-30 06:19] LABS: HEMATOCRIT 30.8 % (37-47); MEAN CELL VOLUME 90.3 fL (80-100); MEAN CORPUSCULAR HEMOGLOBIN 30.2 pg (25-34); MEAN CORPUSCULAR HGB CONC 33.4 g/dl (32-36); MEAN PLATELET VOLUME 11.7 fL (7.4-10.4); PLATELET COUNT 173 K/uL (130-400); RED BLOOD COUNT 3.41 M/uL (4.2-5.4); WHITE BLOOD COUNT 8.93 K/uL (4.8-10.8)
[2017-07-30 06:34] LABS: PARTIAL THROMBOPLASTIN RATIO 1.1
[2017-07-30 06:51] LABS: BLOOD UREA NITROGEN 48 mg/dl (7-18); GLUCOSE 191 mg/dl (70-99)
[2017-07-30 06:52] LABS: BUN/CREATININE RATIO 18.3 (10-20); CALCIUM 8.4 mg/dl (8.5-10.1); CARBON DIOXIDE 28 mmol/L (21-32); CHLORIDE 99 mmol/L (98-107); POTASSIUM 3.8 mmol/L (3.5-5.1); SODIUM 135 mmol/L (136-145)
--- NOTE | 2017-07-30 07:21 | DIAGNOSTIC IMAGING REPORT ---
CHEST ONE VIEW PORTABLE CLINICAL HISTORY: Vascular Congestion requiring Bipp dyspnea COMPARISON STUDY: 07/29/2017 FINDINGS: Mild pulmonary edema essentially unchanged from the prior exam. Diaphragms are smooth. Very slight blunting left lateral gastric angle. IMPRESSION: Mild pulmonary edema stable compared to the prior study. The above report was generated using voice recognition software. It may contain grammatical, syntax or spelling errors. Electronically signed by: George Desir M.D. 07/30/2017 7:19 AM Dictated Date/Time: 07/30/2017 7:00 AM
--- NOTE | 2017-07-30 07:37 | Clinical Documentation Query ---
CLINICAL DOCUMENTATION QUERY 81 year old female who was found to have suffered NSTEMI. On late PM of 07/29 patient did experience some respiratory compromise. In your clinical opinion is this patient being managed for: (X ) Acute hypoxic respiratory failure occurring late PM of 07/29 treated with IV Lasix, Nebs, and BiPAP. ( ) Not Agree ( ) Other explanation of clinical findings (Please Explain) ( ) Unable to determine (Please Define) ( ) Need to Discuss The medical record reflects the following clinical findings, treatment, and risk factors. Clinical Indicators: Per night covering health advocate SHARON, "Received page from RN, patient is complaining of SOB and is desaturating on Nasal cannula. On examination, patient had decreased BS and is in respiratory distress. Stat CXR and cardiac enzymes were ordered and patient is placed on BiPAP. Patient states she is feeling slightly better. CXR suggestive of volume overload, will give a dose of Lasix Updated family (POA) about the patient's condition. Currently Vitals are stable. Will get ABG. Updated ICU team and cardiology for possible transfer to ICU. Will update Nocturnal Hospitalist. " Hypoxia of 75% on 4L NC was noted Treatment: O2 via BiPAP, IV Lasix, Duoneb, Risk Factors: Age, CHF, NC, Please clarify and document your clinical opinion in the progress notes and discharge summary. Terms such as "probable", "suspected", "likely", "questionable", "possible", or "still to be ruled out" are acceptable. IF IN AGREEMENT, YOU MUST DOCUMENT ABOVE DIAGNOSTIC STATEMENT IN DAILY PROGRESS NOTES AND DISCHARGE SUMMARY. This document is not part of the patient's record. Thank You, Hollis Kamara, JIMENEZ [phone]
[2017-07-30] MEDS: MICONAZOLE NITRATE 2% CR 30 GM TUBE EXT SCH ×2 (08:03→20:59)
[2017-07-30] MEDS: FLUTICASONE PROPIONATE NA SPR 16 GM BTL NAE SCH ×2 (08:03→20:59)
[2017-07-30] MEDS: DORZOLAMIDE/TIMOLOL 22.3/6.8MG/ML 10 ML BTL OP SCH ×2 (08:04→20:59)
[2017-07-30] MEDS: ASPIRIN 81 MG ECTAB PO SCH (08:06)
[2017-07-30] MEDS: FAMOTIDINE 20 MG TAB PO SCH ×2 (08:07→21:01)
[2017-07-30] MEDS: AMLODIPINE BESYLATE 5 MG TAB PO SCH (08:07)
[2017-07-30] MEDS: CALCITRIOL 0.25 MCG CAP PO SCH (08:08)
[2017-07-30] MEDS: CLOPIDOGREL BISULFATE 75 MG TAB PO SCH (08:08)
[2017-07-30] MEDS: QUETIAPINE FUMARATE 25 MG TAB PO SCH ×2 (08:09→21:01)
[2017-07-30] MEDS: DOCUSATE SODIUM/SENNA 50/8.6MG TAB PO SCH (08:10)
[2017-07-30] MEDS: CHOLECALCIFEROL 1000 INTER.UNIT TAB PO SCH ×2 (08:11→21:01)
[2017-07-30] MEDS: METOPROLOL SUCC 50MG EXT REL TAB PO SCH (08:13)
[2017-07-30] MEDS: INSULIN ASPART 100 UNITS/ML 3 ML PEN SQ SCH ×4 (08:23→21:05)
[2017-07-30] MEDS: INSULIN GLARGINE SOLOSTAR 100 UNITS/ML 3 ML PEN SQ SCH ×2 (08:24→21:05)
[2017-07-30] MEDS ORDERED: FUROSEMIDE 20 MG TAB PO ONE (09:30)
--- NOTE | 2017-07-30 09:34 | Progress Note ---
Internal Med Progress Note Date of Service: Jul 30, 2017. Provider Documentation: SUBJECTIVE: Seen and examined at bedside Doing better this morning Saturating 94% on 4L NC, CXR: mild pulmonary edema Denies SOB, CP, Dizziness/N/V/ABD Pain Heparin ggt discontinued after 48 hours Offers no other complaints Cr levels worsening Off BiPAP this morning OBJECTIVE: Vital Signs-as noted below Physical Exam: General Appearance:Moderately built and nourished, no apparent distress Head: normocephalic, Atraumatic Eyes: normal inspection, EOMI, PERRL Neck: supple, Trachea midline Respiratory/Chest: Diminished breath sounds, CTA Cardiovascular: S1, S2, No murmur Abdomen/GI:Soft, Non tender, Bowel sounds present Extremities/Musculoskelatal:normal inspection, Trace edema Neurologic/Psych:AAOX3, grossly no focal neurological deficits Skin: normal color, warm Lab data as noted below. ASSESSMENT & PLAN: NSTEMI H/O multivessel CAD s/p inferior [place] 2010 Poor candidate for PCI/CABG Continue IV heparin for 48 hours Continue ASA, Plavix, BB, Imdur, losartan, Statin Appreciate Cardiology Input ECHO as below Plan to started on Imdur by cardiology today Acute on Chronic Systolic/Diastolic heart failure Acute hypoxic respiratory failure: Multifactorial H/O respiratory failure February 2016 necessitating intubation Developed hypoxia in ED after receiving IV fluids. S/P IV Lasix on PO Lasix, monitor volume status Monitor I/Os, daily weight CXR: suggestive of pulmonary edema. ECHO: EF: 40-45% Hold losartan secondary worsening Cr levels HTN: Continue metoprolol, amlodipine Hold losartan for now Monitor CKD IV Cr trending up likely secondary to diuretics/losartan Monitor renal function Held losartan Will consult Nephrology DM II: uncontrolled Continue Lantus, ISS A1C:8.9 CHRONIC ANEMIA: Hb around 11.0 in Fe Monitor Hb DYSLIPIDEMIA Continue pravastatin HYPOTHYROIDISM S/P thyroidectomy for toxic multinodular goiter. TSH: normal Continue levothyroxine H/O VISUAL HALLUCINATIONS / H/O DELIRIUM Hospitalized twice over past year for altered mental status associated with visual hallucinations. Has underlying mild dementia. continue home meds monitor GLAUCOMA Continue Cosopt. VTE PX On IV heparin ggt CODE STATUS: Full code. DISPOSITION Monitor in Tele Discharge disposition to be determined Internal Medicine follow-up with Dr. La. Cardiology follow-up with Dr. Zoda. PROCEDURES: ECHO: * Moderate left ventricular systolic dysfunction. * Apical akinesis. Lateral, posterior, and inferior hypokinesis. Anteroseptal akinesis. * Mild concentric left ventricular hypertrophy. * Grade 2 left ventricular diastolic dysfunction. * Mild left atrial dilatation. * Aortic valve sclerosis without significant stenosis. * Moderate mitral regurgitation. * Trace pulmonic regurgitation. * Trace to mild tricuspid regurgitation. * Mildly elevated estimated right ventricular systolic pressure. Vital Signs: Date Time Temp Pulse Resp B/P (MAP) Pulse Ox O2 Delivery O2 Flow Rate FiO2 07/30/17 07:15 36.8 65 24 123/73 (90) 96 Oxymask 8.0 07/30/17 04:04 37.4 68 21 130/76 (94) 100 BiPAP 60 68 07/30/17 04:04 95 BiPAP 60 07/30/17 03:22 84 97 60 07/30/17 00:24 37.4 62 21 145/75 (98) 97 BiPAP 60 62 07/29/17 23:59 95 BiPAP 60 07/29/17 22:27 84 98 60 07/29/17 20:30 70 32 98 BiPAP/CPAP 60 07/29/17 20:00 95 BiPAP 60 07/29/17 19:51 88 98 60 07/29/17 19:10 36.2 78 18 151/84 (106) 93 BiPAP 07/29/17 18:20 73 18 128/92 (104) 75 Nasal Cannula 4.0 07/29/17 16:00 Room Air 07/29/17 15:47 36.8 70 16 145/80 (101) 90 Nasal Cannula 3.0 07/29/17 12:00 Room Air 07/29/17 10:42 36.9 58 20 96/52 (67) 98 Nasal Cannula 3.0 Lab Results: Results Past 24 Hours Test 07/29/17 11:44 07/29/17 14:35 07/29/17 16:12 07/29/17 18:41 Range/Units Bedside Glucose 210 186 148 70-90 mg/dl Hemoglobin 12.2 12.0-16.0 g/dL Hematocrit 36.2 37-47 % Test 07/29/17 18:42 07/29/17 19:45 07/29/17 21:05 07/30/17 00:18 Range/Units Creatine Kinase MB 5.0 3.1 0.5-3.6 ng/ml Creatine Kinase MB Ratio 0-3.0 Troponin I 5.120 4.540 0-0.045 ng/ml Arterial Blood pH 7.45 7.35-7.45 Arterial Blood Partial Pressure CO2 37 35-46 mmHg Arterial Blood Partial Pressure O2 85 80-95 mm/Hg Arterial Blood HCO3 25 19-24 mmol/L Arterial Blood Oxygen Saturation 96.1 90-95 % Arterial Blood Base Excess 1.2 -9-1.8 mEq/L Arterial Blood Gas Delivery FIO2 60% Rex Test POS POS Bedside Glucose 206 70-90 mg/dl Test 07/30/17 05:26 07/30/17 06:58 Range/Units White Blood Count 8.93 4.8-10.8 K/uL Red Blood Count 3.41 4.2-5.4 M/uL Hemoglobin 10.3 12.0-16.0 g/dL Hematocrit 30.8 37-47 % Mean Corpuscular Volume 90.3 80-100 fL Mean Corpuscular Hemoglobin 30.2 25-34 pg Mean Corpuscular Hemoglobin Concent 33.4 32-36 g/dl RDW Standard Deviation 42.8 36.4-46.3 fL RDW Coefficient of Variation 13.1 11.5-14.5 % Platelet Count 173 130-400 K/uL Mean Platelet Volume 11.7 7.4-10.4 fL Activated Partial Thromboplast Time 28.1 21.0-31.0 SECONDS Partial Thromboplastin Ratio 1.1 Sodium Level 135 136-145 mmol/L Potassium Level 3.8 3.5-5.1 mmol/L Chloride Level 99 98-107 mmol/L Carbon Dioxide Level 28 21-32 mmol/L Anion Gap 8.0 3-11 mmol/L Blood Urea Nitrogen 48 7-18 mg/dl Creatinine 2.60 0.60-1.20 mg/dl Est Creatinine Clear Calc Drug Dose 15.5 ml/min Estimated GFR () 19.1 Estimated GFR (Non- 16.5 BUN/Creatinine Ratio 18.3 10-20 Random Glucose 191 70-99 mg/dl Calcium Level 8.4 8.5-10.1 mg/dl Creatine Kinase MB 2.0 0.5-3.6 ng/ml Creatine Kinase MB Ratio 0-3.0 Troponin I 4.670 0-0.045 ng/ml Bedside Glucose 172 70-90 mg/dl
--- NOTE | 2017-07-30 09:46 | Pharmacy Progress Note ---
Glycemic Control Progress Note Date of Service Jul 30, 2017. Scope Glycemic Pharmacist consulted for glycemic control to write orders per [facility] inpatient glycemic control protocol. Objective Accuchecks BSG (last 24hrs): Test 07/29/17 11:44 07/29/17 14:35 07/29/17 16:12 07/29/17 21:05 Bedside Glucose 210 mg/dl (70-90) 186 mg/dl (70-90) 148 mg/dl (70-90) 206 mg/dl (70-90) Test 07/30/17 05:26 07/30/17 06:58 Random Glucose 191 mg/dl (70-99) Bedside Glucose 172 mg/dl (70-90) HbA1c: Test 07/28/17 08:12 Hemoglobin A1c 8.9 % (4.5-5.6) H Recent Pertinent Medications The patient is currently receiving: * Basal insulin: Lantus 14 units SQ qam + 18 units SQ qpm * Correctional Insulin: Novolog Correction per scale ACHS Goal Range: Low 110 mg/dL - High 140 mg/dL Correction Factor: 30 mg/dL/unit * Prandial insulin: Per carb ratio of 1 unit per 10 grams CHO consumed Outpatient Anti-Diabetic Meds Basal Insulin * Lantus 13 units BID Bolus Insulin * Novolog 10 units AC Assessment & Plan ASSESSMENT: * See progress note from 07/29/17 for more background info, in short: * Pt admitted with NSTEMI and receiving SQ basal bolus insulin regimen for hyperglycemia secondary to baseline DM (outpatient regimen on hold) * Patient is currently receiving an average of 48 units of insulin per day * 32 units of basal insulin (66%) * 16 units of prandial/correctional insulin * BSGs ranging 113 - 210 mg/dl over the past 24hrs * Changes needed to insulin regimen: * AM Fasting BSG = 172 mg/dl. This is in slightly above goal range for patient based on inpatient targets and co-morbidities. Patient received less Lantus on compared to other days, this may be reason for elevated fasting today. * Post-prandial BSGs were all above goal on 07/29, therefore I will tighten CF/ CR. * Anticipate total daily dose near 60 units of insulin. Will attempt to re- distribute regimen 50%:50% basal:prandial to prevent hypo/hyperglycemia. PLAN FOR INPATIENT GLYCEMIC CONTROL: * Basal insulin * Lantus 16-18 units SQ BID * 16 units for BSG less than 160 mg/dL * 18 units for BSG 160 mg/dL or more * Bolus insulin - tighten parameters * NovoLog per scale ACHS or Q6hrs while NPO * Goal Range: Low 110 mg/dL - High 140 mg/dL * Correction Factor: 25 mg/dL/unit * Nutritional / Prandial insulin per carb ratio of 1 unit per 9 grams CHO consumed RECOMMENDATIONS FOR DISCHARGE: * * Please note that the plan above was derived based on current level of insulin resistance and hospital stress. These recommendations are appropriate for inpatient admission only. Plan of care upon discharge will need to be reassessed to avoid potential outpatient hypo/hyperglycemia. Thank you.
--- NOTE | 2017-07-30 11:02 | CARDIOLOGY PROGRESS NOTE ---
DATE: 07/30/2017 HISTORY OF PRESENT ILLNESS: Ms. Diehl is a very pleasant 81-year-old white female with a history of Medically Managed Multi-vessel CAD, Ischemic Cardiomyopathy (LVEF 40%-45% with multiple RWMAs), history of combined Diastolic and Systolic CHF, Hypertension, Type 2 Diabetes Mellitus, Dyslipidemia , and Hypothyroidism who was admitted acutely on 07/27/2017 after developing mid epigastric discomfort which radiated through to her back with associated nausea. Her EKG showed a sinus rhythm on admission with left axis deviation, voltage criteria for LVH and ST segment depressions in leads I, aVL, and V6 consistent with ischemia vs LVH. No significant change compared to 06/22/2017 tracing. LABORATORY DATA: Initial troponin I was 0.036 ng/mL, and subsequently peaked at 44.700 ng/mL. Total CKs and CK-MBs were elevated as well consistent with an NSTEMI. MEDICATIONS: The patient has been treated with the appropriate including Toprol-XL 200 mg a day, Amlodipine 10 mg daily, Aspirin 81 mg each morning, Plavix 75 mg daily, Heparin drip, and Pravastatin therapy. Additionally, she has had some respiratory compromise from time to time which is felt to be secondary to pulmonary edema. This has responded favorably with IV Lasix. Unfortunately, her BUN and creatinine continue to trend upwards. The patient states that she is feeling well at present time. She has not had any further epigastric or lower chest discomfort, pain in her back, or any nausea. She further denies any vomiting, dyspnea, or diaphoresis at the current time. The patient apparently had and O2 desaturation last evening which required temporary BiPAP. That has since resolved. PHYSICAL EXAMINATION: VITAL SIGNS: Temperature is 36.8 degrees Celsius, pulse 65 and regular, respiratory rate is 18 and unlabored, blood pressure is 96% on 8 liters oxygen. I's and O's -2262 mL total. Body weight is 78.6 kilograms, down 0.6 kilograms from yesterday. GENERAL: The patient is in no acute distress. She is sitting upright in a bedside chair. HEENT: Head is atraumatic, normocephalic. EOMs intact. Sclerae are anicteric. Face is symmetric. No perioral cyanosis. Dentition is in poor repair. Mucous membranes moist. NECK: Without obvious JVD. Jugular venous pressure is at the level of the clavicle sitting upright. CHEST AND LUNGS: With diminished breath sounds in bilateral bases, otherwise clear. No wheezes or rales. CARDIOVASCULAR: S1 and S2 are regular, distant and with a grade 1/6 basal systolic murmur heard best over right second intercostal space. No murmur does dystonic appear radiate. Aortic valve closure sound is audible at both the apex and the base. No obvious gallops or rubs. ABDOMEN: Bowel sounds present. EXTREMITIES: Without clubbing, cyanosis or edema. NEUROLOGIC: The patient is awake, alert, and interactive. Answers questions appropriately. Speech is clear. Normal movement in all 4 extremities. LABORATORY DATA: Sodium of 135 mmol/L. Potassium 3.8 mmol/L. 48 mg per deciliter and creatinine 2.60 mg/dL. Random glucose 172 mg/dL. Troponin I this morning is 4.670 ng/mL. White blood cell count is 8.93. Hemoglobin 10.3 g/dl, hematocrit 30.8%, platelet count 173,000. Chest x-ray performed today shows some mild pulmonary edema, unchanged from prior exam, very slight blunting of the left lateral gastric ankle. Telemetry monitoring reveals predominantly normal sinus rhythm with rates in the 160s. Occasional ectopy. ASSESSMENT: 1. NSTEMI -- she has had no further angina pectoris or anginal equivalent symptoms. 2. Multivessel CAD -- Medical management. 3. Acute on chronic combined systolic and diastolic CHF -- currently appears euvolemic. 4. Ischemic Cardiomyopathy with an LVEF 40%-45%. 5. Hypertension. 6. Dyslipidemia 7. Type 2 diabetes mellitus. PLAN: 1. The patient has not had any further angina pectoris or anginal equivalent symptoms. She was somewhat short of breath with oxygen desaturation last evening which responded to BIPAP and Lasix. Her O2 saturations have remained > 90% since that time. 2. Continue Toprol-XL 200 mg daily. 3. Continue long-term aspirin and Plavix. 4. Amlodipine 10 mg daily. 5. Continue Pravachol 40 mg daily. 6. Continue topical nitrates for the time being. Recommend switching to isosorbide mononitrate at the time of discharge. 7. Continue heparin drip for a total of 48 hours, then discontinue. 8. Continue monitoring her volume status on a day to day level. At the current time, she appears euvolemic, and her creatinine and BUN be currently rising -- likely secondary to prerenal azotemia. 9. Continue to monitor daily I's and O's, body weights. 10. Maintain a low sodium heart healthy diet. 11. We will continue to follow along while hospitalized. The patient was seen and examined by me in conjunction with Mr. Izaguirre. She has responded to administration of intravenous diuretic an administration of supplemental oxygen via BiPAP. With the diuresis she has had a worsening of her renal function. Would hold intravenous diuretics at this time. If her renal function stabilizes would reinstitute daily oral furosemide. Continue to hold losartan in light of the worsened renal insufficiency. As previously discussed by me in prior notes her coronary arteries are poor candidates for percutaneous or surgical revascularization. Recommend continued medical therapy for underlying coronary artery disease. Sara Ruffin MD [facility]
[2017-07-30] MEDS: PRAVASTATIN SOD 40 MG TAB PO SCH (21:01)
[2017-07-31] VITALS (12 sets, daily range): BP systolic 113–146; BP diastolic 58–85; PULSE 50–78; TEMP 36–37; O2SAT 84–100
[2017-07-31] MEDS: NITROGLYCERIN OINT 2% 1GM PACKET EXT SCH ×5 (00:33→23:40)
[2017-07-31 06:10] LABS: HEMATOCRIT 32.5 % (37-47); MEAN CELL VOLUME 91.5 fL (80-100); MEAN CORPUSCULAR HEMOGLOBIN 29.9 pg (25-34); MEAN CORPUSCULAR HGB CONC 32.6 g/dl (32-36); MEAN PLATELET VOLUME 11.9 fL (7.4-10.4); PLATELET COUNT 201 K/uL (130-400); RED BLOOD COUNT 3.55 M/uL (4.2-5.4); WHITE BLOOD COUNT 8.35 K/uL (4.8-10.8)
[2017-07-31] MEDS: LEVOTHYROXINE 50 MCG TAB PO SCH (06:14)
[2017-07-31 06:45] LABS: BUN/CREATININE RATIO 21.8 (10-20); CALCIUM 8.4 mg/dl (8.5-10.1); CREATININE 2.6 mg/dl (0.60-1.20); POTASSIUM 3.7 mmol/L (3.5-5.1)
[2017-07-31] MEDS: MICONAZOLE NITRATE 2% CR 30 GM TUBE EXT SCH ×2 (08:35→20:45)
[2017-07-31] MEDS: FLUTICASONE PROPIONATE NA SPR 16 GM BTL NAE SCH ×2 (08:35→20:45)
[2017-07-31] MEDS: INSULIN ASPART 100 UNITS/ML 3 ML PEN SQ SCH ×4 (08:36→20:50)
[2017-07-31] MEDS: AMLODIPINE BESYLATE 5 MG TAB PO SCH (08:37)
[2017-07-31] MEDS: DORZOLAMIDE/TIMOLOL 22.3/6.8MG/ML 10 ML BTL OP SCH ×2 (08:37→20:45)
[2017-07-31] MEDS: CLOPIDOGREL BISULFATE 75 MG TAB PO SCH (08:37)
[2017-07-31] MEDS: ASPIRIN 81 MG ECTAB PO SCH (08:37)
[2017-07-31] MEDS: METOPROLOL SUCC 50MG EXT REL TAB PO SCH (08:38)
[2017-07-31] MEDS: QUETIAPINE FUMARATE 25 MG TAB PO SCH ×2 (08:39→20:45)
[2017-07-31] MEDS: FAMOTIDINE 20 MG TAB PO SCH ×2 (08:40→20:45)
[2017-07-31] MEDS: CHOLECALCIFEROL 1000 INTER.UNIT TAB PO SCH ×2 (08:41→20:45)
[2017-07-31] MEDS: DOCUSATE SODIUM/SENNA 50/8.6MG TAB PO SCH (08:43)
[2017-07-31] MEDS: INSULIN GLARGINE SOLOSTAR 100 UNITS/ML 3 ML PEN SQ SCH ×2 (08:58→20:51)
--- NOTE | 2017-07-31 12:14 | Pharmacy Progress Note ---
Glycemic: Assessment & Plan Date of Service Jul 31, 2017. Assessment & Plan Fasting improved to 94 mg/dL (from 172 mg/dL on 07/30). Lunch and HS BSG tend to be highest. The patient is currently receiving 63 units of insulin per day. BSGs ranging 148 - 217 mg/dl over the past 24hrs. * Basal insulin: Lantus 18 units every 12 hours * Correctional Insulin: Novolog Correction per scale ACHS Goal Range: Low 110 mg/dL - High 140 mg/dL Correction Factor: 25 mg/dL/unit * Prandial insulin: Per carb ratio of 1 unit per 9 grams CHO consumed PLAN: Redistribute regimen based on ~65 units per day: Decrease Lantus to 16 units SQ BID Continue correction factor of 25 mg/dl/unit Tighten carb ratio to 7 BSGs continue to improve, no changes needed to inpatient regimen at this time. Pharmacy will continue to monitor patient daily and write orders per [facility] inpatient glycemic control protocol. Thanks. * Please note that the plan above was derived based on current level of insulin resistance and hospital stress. These recommendations are appropriate for inpatient admission only. Plan of care upon discharge will need to be reassessed to avoid potential outpatient hypo/hyperglycemia.
--- NOTE | 2017-07-31 14:42 | NEPHROLOGY CONSULTATION ---
DATE OF CONSULTATION: 07/31/2017 ATTENDING OF RECORD: Dr. Roberts. REASON FOR CONSULTATION: Worsening kidney function. HISTORY OF PRESENT ILLNESS This 81-year-old female last seen in my office last September with CKD stage IV with microalbuminuria with creatinine of 1.7-2 with a right kidney of 8.5 cm and left kidney 8.7 cm from underlying diabetes and hypertension. The patient with hypertension for over 30 years and diabetes for over 20 years. The patient follows with Dr. Ruffin for heart disease and has had a history of [place] in the past. At the time I saw the patient trying to control the blood pressure as best as possible as well as the diabetes and follow her kidney function numbers. Her creatinine trend has ranged from 1.8-2.4 over the last several months. The patient presents on the with epigastric pain with findings on chest x-ray of cardiomegaly with mild interstitial pulmonary edema who appeared to have a non-STEMI, catheterization in [address] Ruffin evaluated the patient given her significant renal disease and history of poor coronary lesions in 2010 decided to medical management. The patient's creatinine on admission was 2.3 and has trended up slowly to 2.6. The patient did receive Lasix 40 mg oral on the as well as 20 mg oral Lasix on the to help with findings of congestive heart failure. The patient is more comfortable now, no longer has the pain between her shoulder blades is eating well but states she just does not feel right. The patient was averaging about a liter negative over the past 2 days and chest x-ray from the showed mild pulmonary edema which is stable, compared to prior study. The patient has also been using BiPAP overnight while she sleeps and then 4 liters nasal cannula throughout the day. The patient appears comfortable. REVIEW OF SYSTEMS: Positive fatigue. No more chest pain. Positive shortness of breath with exertion. Good appetite. No nausea or vomiting. Denies constipation. No rash or itching. Positive poor memory. Positive chronic poor vision, positive chronic poor hearing. All other review of systems otherwise negative. PAST MEDICAL HISTORY: CKD stage III with baseline creatinine in the low 2s, coronary artery disease, type 2 diabetes, hyperlipidemia, history of breast cancer, hypertension, hypothyroidism, and history of [place] in the past. PAST SURGICAL HISTORY: Partial thyroidectomy, mastectomy, cataract surgery, tonsillectomy, status post transmetatarsal amputation of the left foot. FAMILY HISTORY: Significant for heart disease and diabetes. SOCIAL HISTORY: No smoking, no alcohol, no drugs. CURRENT MEDICATIONS: Norvasc 10 mg a day, aspirin 81 mg a day; calcitriol 0.25 mcg Sunday, Sunday, Sunday; vitamin D 1000 units twice a day, Plavix 75 mg daily, Pepcid 20 mg p.o. b.i.d., Flonase 2 sprays twice a day, sliding scale insulin, Lantus subQ b.i.d., levothyroxine 50 mcg daily, Toprol-XL 200 mg daily, nitroglycerin 1 inch every 6 hours, Seroquel 12.5 mg daily, Pravachol 40 mg at night, Seroquel 25 mg at night, senna 1 tab daily, Cozaar and Lasix were both stopped with worsening kidney function. PHYSICAL EXAMINATION: VITAL SIGNS: Temperature 37, pulse 50, respiratory rate 18, blood pressure 113/62, satting 99% on 4 liters. GENERAL: Awake, alert, oriented x3. EYES: No scleral icterus. ENT: Moist mucous membranes. NECK: Supple. PULMONARY: Decreased breath sounds at the bases. CARDIAC: Marcio. ABDOMEN: Bowel sounds positive, soft, nontender. EXTREMITIES: No clubbing, cyanosis or edema. NEUROLOGICALLY: Nonfocal. DERM: No rash or ulcers noted. LABORATORY DATA: Sodium was 139, potassium 3.7, chloride is 103, bicarb is 28, BUN is 57, creatinine is 2.6, glucose is 63, calcium is 8.4. White count is 8.3, H&H 10 and 32, platelet count is 201. ASSESSMENT AND PLAN: Acute kidney injury on chronic kidney disease stage IV with a creatinine of 2.6 with a baseline creatinine in the low 2s. Did not receive any contrast; however, the patient did have a non-ST elevation myocardial infarction with medical management and did attempt some mild diuresis to help with her breathing. With the creatinine trending up, Lasix has been placed on hold as well as Cozaar. Okay from the renal standpoint to continue both if medically needed to help to optimize her heart as best as possible. In my opinion, her volume status appears acceptable. The patient appears to be breathing well. So okay to continue the Cozaar if needed as well as her outpatient diuretics if necessary. Hopefully, the creatinine will eventually peak and start to trend down. Need to optimize her heart as best as possible and okay with creatinine trending up if medically necessary. Will discuss further with the primary hospitalist. RONALD
[2017-07-31] MEDS ORDERED: POLYETHYLENE (MIRALAX) 17 GM PACK PO STA (20:00)
--- NOTE | 2017-07-31 20:15 | Progress Note ---
Internal Med Progress Note Date of Service: Jul 31, 2017. Provider Documentation: SUBJECTIVE: patient at beside awake and alert. when asked to sit up she appears weak but able to roll over to the side. patient denies acute complaints OBJECTIVE: Physical Exam: General Appearance:Moderately built and nourished, no apparent distress Head: normocephalic, Atraumatic Eyes: normal inspection, EOMI, Neck: supple, Trachea midline Respiratory/Chest: poor inspiratory effort when asked to take deep breaths Cardiovascular: S1, S2, No murmur Abdomen/GI:Soft, Non tender, Bowel sounds present Extremities:normal inspection, Trace edema Neurologic/Psych:AAOX3, grossly no focal neurological deficits Skin: normal color, warm ASSESSMENT & PLAN: NSTEMI H/O multivessel CAD s/p inferior [place] 2010 Poor candidate for PCI/CABG, Heparin ggt discontinued after 48 hours Continue ASA, Plavix, BB, Imdur, losartan, Statin, Imdur Acute on Chronic Systolic/Diastolic heart failure, ECHO: EF: 40-45% Developed hypoxia in ED after receiving IV fluids. S/P IV Lasix, and was on on PO Lasix, however diuresis and ARB has been cut back based on worsening renal function and nephrology following the patient HTN: Continue metoprolol, amlodipine Hold losartan for now Monitor DM II: A1C:8.9 Continue Lantus, ISS CHRONIC ANEMIA: Hb around 11.0 in Dec Monitor Hb DYSLIPIDEMIA Continue pravastatin HYPOTHYROIDISM S/P thyroidectomy for toxic multinodular goiter. TSH: normal Continue levothyroxine H/O VISUAL HALLUCINATIONS / H/O DELIRIUM Hospitalized twice over past year for altered mental status associated with visual hallucinations. Has underlying mild dementia. continue home meds monitor GLAUCOMA Continue Cosopt. VTE PX: heparin 5000 units q12 hours CODE STATUS: Full code. DISPOSITION Monitor in Tele Discharge disposition to be determined Internal Medicine follow-up with Dr. La. Cardiology follow-up with Dr. Ruffin. PROCEDURES: ECHO: Moderate left ventricular systolic dysfunction. Apical akinesis. Lateral, posterior, and inferior hypokinesis. Anteroseptal akinesis. Mild concentric left ventricular hypertrophy. Grade 2 left ventricular diastolic dysfunction. Mild left atrial dilatation. Aortic valve sclerosis without significant stenosis. Moderate mitral regurgitation. Trace pulmonic regurgitation. Trace to mild tricuspid regurgitation. Mildly elevated estimated right ventricular systolic pressure. Vital Signs: Date Time Temp Pulse Resp B/P (MAP) Pulse Ox O2 Delivery O2 Flow Rate FiO2 07/31/17 16:23 97 Nasal Cannula 4.0 07/31/17 16:06 36.0 70 16 120/58 (78) 93 Nasal Cannula 5.0 07/31/17 12:02 36.6 61 18 140/68 (92) 100 Nasal Cannula 07/31/17 12:00 100 BiPAP 4.0 07/31/17 08:12 36.4 63 18 146/85 (105) 97 07/31/17 08:00 97 BiPAP 4.0 07/31/17 05:11 50 99 60 07/31/17 04:00 98 BiPAP 60 07/31/17 03:55 37.0 56 18 113/62 (79) 92 Nasal Cannula 07/31/17 02:08 54 99 60 07/30/17 23:59 92 BiPAP 07/30/17 23:56 36.9 58 19 130/74 (92) 100 BiPAP 07/30/17 22:35 61 93 60 Lab Results: Results Past 24 Hours Test 07/30/17 20:21 07/31/17 05:20 07/31/17 06:16 07/31/17 06:36 Range/Units Bedside Glucose 217 74 94 70-90 mg/dl White Blood Count 8.35 4.8-10.8 K/uL Red Blood Count 3.55 4.2-5.4 M/uL Hemoglobin 10.6 12.0-16.0 g/dL Hematocrit 32.5 37-47 % Mean Corpuscular Volume 91.5 80-100 fL Mean Corpuscular Hemoglobin 29.9 25-34 pg Mean Corpuscular Hemoglobin Concent 32.6 32-36 g/dl RDW Standard Deviation 43.8 36.4-46.3 fL RDW Coefficient of Variation 13.0 11.5-14.5 % Platelet Count 201 130-400 K/uL Mean Platelet Volume 11.9 7.4-10.4 fL Sodium Level 139 136-145 mmol/L Potassium Level 3.7 3.5-5.1 mmol/L Chloride Level 103 98-107 mmol/L Carbon Dioxide Level 28 21-32 mmol/L Anion Gap 8.0 3-11 mmol/L Blood Urea Nitrogen 57 7-18 mg/dl Creatinine 2.60 0.60-1.20 mg/dl Est Creatinine Clear Calc Drug Dose 15.4 ml/min Estimated GFR () 19.1 Estimated GFR (Non- 16.5 BUN/Creatinine Ratio 21.8 10-20 Random Glucose 63 70-99 mg/dl Calcium Level 8.4 8.5-10.1 mg/dl Test 07/31/17 11:03 07/31/17 16:44 Range/Units Bedside Glucose 279 159 70-90 mg/dl
[2017-07-31] MEDS: PRAVASTATIN SOD 40 MG TAB PO SCH (20:45)
[2017-07-31] MEDS: HEPARIN SOD 5000 UNIT/0.5 ML CARP SQ SCH (20:52)
--- NOTE | 2017-07-31 21:54 | CARDIOLOGY PROGRESS NOTE ---
DATE: 07/31/2017 The patient was seen by me early this afternoon in the telemetry unit room. She was sitting in a chair by her bedside. No distress. She denied any dyspnea. No palpitations, lightheadedness, or syncope. No complaints of any chest or back discomfort. No epigastric discomfort. No abdominal pain. No symptoms of bleeding. She does complain of constipation. She had an episode of glucose of 74 this morning, this was accompanied by diaphoresis and shaking. These symptoms resolved with administration of high calorie content foods. No further such symptoms. CURRENT MEDICATIONS: SubQ heparin 5000 units q. 12 hours; Lantus insulin 16 units subQ b.i.d.; calcitriol 0.25 mcg Mondays, Wednesdays, and Fridays; NovoLog sliding scale insulin; Monistat cream 1 application b.i.d.; amlodipine 10 mg daily; aspirin 81 mg daily; clopidogrel 75 mg daily; metoprolol succinate ER 200 mg daily; Seroquel 12.5 mg q.a.m. and 25 mg at bedtime; Senokot 1 tab daily; levothyroxine 50 mcg daily; Cosopt 1 drop b.i.d.; famotidine 20 mg b.i.d.; Flonase 2 sprays b.i.d.; Pravachol 40 mg q.p.m.; vitamin D 1000 units b.i.d.; nitroglycerin ointment 1 inch q. 6 hours; and several p.r.n. medications. ALLERGIES: See EHR. Reviewed by me. Monitor history over the past 24 hours reviewed by me. Sinus rhythm, sinus bradycardia, rare premature ventricular beats. PHYSICAL EXAMINATION: VITAL SIGNS: At 12:02 p.m. today with oral temperature 36.6, pulse 61, blood pressure 140/68, oxygen saturation on nasal cannula oxygen 100%. NECK: No jugular venous distention noted sitting upright. LUNGS: Normal respiratory effort. Clear. Decreased breath sounds at bases. No rales or wheezes. HEART: Regular rate and rhythm. S1, S2 normal. No S3 or S4. 1/6 systolic murmur second right intercostal space and upper left sternal border. No diastolic murmur or rub. ABDOMEN: Soft. Nontender. No palpable masses or organomegaly. No bruits. EXTREMITIES: No pretibial edema. No calf tenderness. NEUROLOGIC: Alert and oriented x3. She can move all extremities. LABORATORY DATA: Today with sodium 139, potassium 3.7, chloride 103, carbon dioxide 28, BUN 57, creatinine 2.60, random glucose 67. CBC today with WBC 8.35, hemoglobin 10.6, hematocrit 32.5, platelet count 201. ASSESSMENT: 1. Status post non-ST elevation myocardial infarction. No current anginal type symptoms. 2. Ischemic cardiomyopathy. 3. Acute on chronic systolic and diastolic heart failure, worsening on 07/29/2017, improvement with BiPAP and intravenous diuretics. 4. Chronic kidney disease. BUN and creatinine are worsened with additional diuresis. 5. Negative fluid balance on 07/29/2017 of 1071 mL. On 07/30/2017 negative fluid balance of 1265 mL. On exam today, she does not appear to have any volume overload. 6. Decreased breath sounds at bases. This may be secondary to atelectasis. Cannot exclude pleural effusions. 7. No significant arrhythmias. 8. Mild hypertension. RECOMMENDATIONS AND PLAN: 1. The patient was seen by Dr. Cage today. He recommends that she be restarted on her oral diuretics as well as angiotensin receptor diego. We would restart these tomorrow. 2. As previously stated by me conservative medical management of her underlying coronary artery disease. Her vessels are poor candidates for percutaneous or surgical revascularization. 3. Increase activities as tolerated. 4. Continue current dose of metoprolol. 5. Continue dual antiplatelet therapy of aspirin and clopidogrel. She has no bleeding complaints or bleeding signs with this. Her hemoglobin is stable. [facility]
[2017-08-01] VITALS (7 sets, daily range): BP systolic 116–146; BP diastolic 69–80; PULSE 62–76; TEMP 36.4–37.4; O2SAT 90–98; Ht 152.4 cm; Wt 77.8 kg
[2017-08-01] MEDS: LEVOTHYROXINE 50 MCG TAB PO SCH (05:54)
[2017-08-01] MEDS: NITROGLYCERIN OINT 2% 1GM PACKET EXT SCH (05:54)
[2017-08-01 06:06] LABS: BASO % 0.4 %; BASO ABS # 0.03 K/uL (0-0.2); COMPLETE YES; EOS % 3.6 %; HEMATOCRIT 31.4 % (37-47); IG% 0.2 %; LYMPH % 14.9 %; LYMPH ABS # 1.25 K/uL (1.2-3.4); MEAN CELL VOLUME 90.2 fL (80-100); MEAN CORPUSCULAR HEMOGLOBIN 30.7 pg (25-34); MEAN CORPUSCULAR HGB CONC 34.1 g/dl (32-36); MEAN PLATELET VOLUME 11.9 fL (7.4-10.4); MONO % 9.6 %; NEUT % 71.3 %; PLATELET COUNT 228 K/uL (130-400); RED BLOOD COUNT 3.48 M/uL (4.2-5.4)
[2017-08-01 06:44] LABS: ALB/GLOB RATIO 0.6 (0.9-2); CALCIUM 8.7 mg/dl (8.5-10.1); CREATININE 2.4 mg/dl (0.60-1.20); POTASSIUM 4.3 mmol/L (3.5-5.1)
[2017-08-01] MEDS: AMLODIPINE BESYLATE 5 MG TAB PO SCH (08:06)
[2017-08-01] MEDS: ASPIRIN 81 MG ECTAB PO SCH (08:06)
[2017-08-01] MEDS: METOPROLOL SUCC 50MG EXT REL TAB PO SCH (08:07)
[2017-08-01] MEDS: CLOPIDOGREL BISULFATE 75 MG TAB PO SCH (08:07)
[2017-08-01] MEDS: MICONAZOLE NITRATE 2% CR 30 GM TUBE EXT SCH ×2 (08:09→20:21)
[2017-08-01] MEDS: DORZOLAMIDE/TIMOLOL 22.3/6.8MG/ML 10 ML BTL OP SCH ×2 (08:09→20:20)
[2017-08-01] MEDS: CALCITRIOL 0.25 MCG CAP PO SCH (08:09)
[2017-08-01] MEDS: FLUTICASONE PROPIONATE NA SPR 16 GM BTL NAE SCH ×2 (08:11→20:21)
[2017-08-01] MEDS: DOCUSATE SODIUM/SENNA 50/8.6MG TAB PO SCH (08:11)
[2017-08-01] MEDS: CHOLECALCIFEROL 1000 INTER.UNIT TAB PO SCH ×2 (08:12→20:18)
[2017-08-01] MEDS: QUETIAPINE FUMARATE 25 MG TAB PO SCH ×2 (08:12→20:19)
[2017-08-01] MEDS: FAMOTIDINE 20 MG TAB PO SCH ×2 (08:13→20:18)
[2017-08-01] MEDS: INSULIN ASPART 100 UNITS/ML 3 ML PEN SQ SCH ×4 (08:18→20:28)
[2017-08-01] MEDS: HEPARIN SOD 5000 UNIT/0.5 ML CARP SQ SCH ×2 (08:19→20:27)
[2017-08-01] MEDS: INSULIN GLARGINE SOLOSTAR 100 UNITS/ML 3 ML PEN SQ SCH ×2 (08:19→20:26)
[2017-08-01] MEDS ORDERED: BISACODYL 10 MG SUPP PR ONE (09:00)
[2017-08-01] MEDS ORDERED: ISOSORBIDE MONONITRATE 60 MG TABCR PO ONE (09:57)
--- NOTE | 2017-08-01 10:02 | DIAGNOSTIC IMAGING REPORT ---
ABDOMEN 2VIEW W/PA CHEST RTN CLINICAL HISTORY: 81 years-old Female presenting with Abdominal pain, constipation . TECHNIQUE: PA view of the chest and supine and upright views of the abdomen were obtained. COMPARISON: 07/30/2017. FINDINGS: Atherosclerosis of aortic arch. Chronic silhouette normal in size. Slight interval increase in patchy right mid and basilar predominant opacities with persistent left mid and basilar opacities. Given prominent reticular markings, this may be on a background of chronic lung disease or emphysema. Small right pleural effusion new from prior. No pneumothorax. Mild stool burden in the colon. No bowel obstruction. No gross pneumoperitoneum. Multilevel degenerative changes of the lumbar spine. Osteopenia suggested. IMPRESSION: 1. Slight interval increase in patchy right mid and basilar predominant opacities with persistent left mid and basilar predominant opacities. An element of pulmonary edema may be present as well as background chronic lung disease or emphysema. Superimposed infectious etiology or aspiration cannot excluded. 2. New small right pleural effusion. 3. Mild stool burden. No bowel obstruction. Electronically signed by: Jourdan Sotelo M.D. 08/01/2017 10:01 AM Dictated Date/Time: 08/01/2017 9:58 AM
[2017-08-01] MEDS: SENNA 8.6 MG TAB PO SCH (10:32)
--- NOTE | 2017-08-01 11:20 | CARDIOLOGY PROGRESS NOTE ---
DATE: 08/01/2017 HISTORY OF PRESENT ILLNESS: Ms. Diehl is a very pleasant 81-year-old white female with a history of Medically Managed Multivessel CAD, Ischemic Cardiomyopathy (LVEF of 40% -45% with multiple RWMAs), Combined Diastolic and Systolic CHF, Hypertension, Type 2 DM, Dyslipidemia and Hypothyroidism who was admitted acutely on 07/27/2017 after developing mid epigastric discomfort which radiated through to her back with associated nausea. Her EKG was abnormal, but no acute changes were noted. Her initial troponin I was 0.036 ng/mL and subsequently peaked at 44.70 ng/mL. Total CKs and CK-MBs were elevated as well consistent with an NSTEMI. She has been managed medically and has had evidence of acute on chronic combined diastolic and systolic CHF. The patient has had a negative fluid balance of minus 3487 mL total since being admitted and her breathing has returned to baseline. The patient has not had any further mid epigastric pain or chest pain and nothing radiating to her back. She denies any nausea, vomiting or diaphoresis at the present time. Her primary complaint is that of constipation. She has not had a bowel movement in over 5 days and she complains of some mid abdominal and lower abdominal cramping-type discomfort which does not radiate and is without associated nausea. Her mid abdominal and lower abdominal pain is improved when she passes flatus, which she has been doing, but she has not had a bowel movement. MEDICATIONS: 1. Senokot 17.2 mg every day. 2. Heparin 5000 units subcutaneous injection q. 12 hours. 3. Lantus insulin 16 units subcutaneous injection b.i.d. 4. Rocaltrol 0.25 mcg every Sunday, Sunday and Sunday. 5. DuoNeb nebulizers q. 2 hours p.r.n. for shortness breath or wheezing. 6. Lasix IV (to be converted to p.o.). 7. NovoLog sliding scale insulin. 8. Amlodipine 10 mg daily. 9. Aspirin 81 mg daily. 10. Plavix 75 mg a day. 11. Cozaar 25 mg daily (to be restarted today). 12. Toprol-XL 200 mg a day. 13. Seroquel 12.5 mg p.o. q. 14. Senokot S prn. 15. Levothyroxine 50 mcg daily. 16. Cosopt ophthalmic solution. 17. Pepcid 20 mg b.i.d. 18. Flonase nasal spray 2 sprays in each nostril b.i.d. 19. Seroquel 25 mg p.o. at bedtime. 20. Vitamin D 1000 international units b.i.d. 21. Morphine sulfate 1 mg IV q. 1 hour p.r.n. 22. Nitroglycerin ointment 1 inch to exterior chest wall q. 6 hours (to be converted to long acting Imdur, orally). PHYSICAL EXAMINATION: VITAL SIGNS: Temperature is 37.4 degrees Celsius, pulse is 74 and regular, respiratory rate is 14 and unlabored, blood pressure 136/69, SPO2 is 95% on 4 liters of oxygen via nasal cannula, I's and O's -230 mL total since this a.m. at midnight. Total negative fluid balance of 3487 mL. GENERAL: The patient is in no acute distress. HEENT: Head is atraumatic, normocephalic. EOMs intact. Sclerae are anicteric. Face is symmetric. No perioral cyanosis. Mucous membranes are moist. NECK: Without obvious JVD. Jugular venous pressure is just above the clavicle lying at a 30-degree angle. CHEST AND LUNGS: With diminished breath sounds in bilateral bases, otherwise clear. CARDIOVASCULAR: S1 and S2 are regular, distant, with a grade 1/6 basal systolic murmur heard best over the right second intercostal space; does not appear to radiate. Aortic valve closure sound is audible at both the apex and the base. No diastolic murmurs are appreciated. No gallops or rubs. ABDOMEN: Bowel sounds are present. Mild tenderness to deep palpation in the periumbilical region and in the bilateral lower quadrants. No guarding or rigidity. NEUROLOGIC: The patient is awake, alert and oriented. Pleasant and cooperative. Answers questions appropriately. Speech is clear. Normal movement of bilateral upper and lower extremities. Abdominal flat plate and PA chest x-ray is pending. LABORATORIES: White blood cell count is 8.40, hemoglobin 10.7 g/dL, hematocrit is 31.4% and platelet count is 228,000. Sodium is 138 mmol/L, potassium 4.3 mmol/L. BUN is 60 mg per deciliter and creatinine is 2.40 mg/dL (down from 2.60 mg per deciliter yesterday), random glucose 165 mg/dL. ProBNP is elevated at 12,117. ASSESSMENT: 1. NSTEMI in a patient with multivessel medically managed CAD. 2. She has not had any further angina pectoris or anginal equivalent symptoms. 3. Acute on chronic combined systolic and diastolic CHF -- currently appears euvolemic. 4. Ischemic Cardiomyopathy with a LVEF of 40%-45%. 5. LV diastolic dysfunction. 6. Hypertension. 7. Dyslipidemia. 8. Type 2 diabetes mellitus. 9. Primary complaint is that of constipation. PLAN: 1. Continue Senokot. 2. Continue prune juice 3. Add Dulcolax suppository x1 dose now. 4. Abdominal flat plate to evaluate for ileus or other pathology. 5. Continue Toprol-XL 200 mg daily. 6. Continue long-term Aspirin and Plavix. 7. Continue Amlodipine 10 mg a day. 8. Continue Pravachol 40 mg daily. 9. Discontinue topical nitrates. Resume Imdur 60 mg po daily. 10. Continue subcutaneous heparin for DVT prophylaxis. Heparin drip was discontinued after 48 hours. 11. Continue monitoring daily I's and O's, body weights. 12. Maintain a low-sodium, heart-healthy diet. 13. Restart Losartan 25 mg daily. 14. Resume Lasix 40 mg p.o. every day. 15. Discontinue IV Lasix. 16. Monitor daily labs. 17. We will continue to follow. Patient was seen and examined by me on the evening of August 01. Case discussed with Peter Dmitriy. Agree of above history and exam. On my exam no evidence of active congestive heart failure. She has no current cardiac complaints. Her main complaint was constipation. This is since resolved with the therapy prescribed by Mr. Izaguirre. She states she feels much better since having a bowel movement. Agree with above recommendations and plan. Advance activity. Diuretic and angiotensin receptor diego have been restarted. Agree with switching back to oral nitrate therapy. Discharge home if she remains stable. [facility]
[2017-08-01] MEDS: LOSARTAN POTASSIUM 25 MG TAB PO SCH (11:42)
[2017-08-01] MEDS: FUROSEMIDE 40 MG TAB PO SCH (11:43)
--- NOTE | 2017-08-01 14:23 | Pharmacy Progress Note ---
Glycemic Control Progress Note Date of Service Aug 01, 2017. Scope Glycemic Pharmacist consulted for glycemic control to write orders per [facility] inpatient glycemic control protocol. Objective Accuchecks BSG (last 24hrs): Test 07/31/17 16:44 07/31/17 20:03 08/01/17 05:24 08/01/17 06:45 Bedside Glucose 159 mg/dl (70-90) 162 mg/dl (70-90) 165 mg/dl (70-90) Random Glucose 78 mg/dl (70-99) Test 08/01/17 10:12 08/01/17 11:15 Bedside Glucose 341 mg/dl (70-90) 325 mg/dl (70-90) HbA1c: Test 07/28/17 08:12 Hemoglobin A1c 8.9 % (4.5-5.6) H Recent Pertinent Medications The patient is currently receiving: * Basal insulin: Lantus 16 units SQ bid * Correctional Insulin: Novolog Correction per scale ACHS Goal Range: Low 110 mg/dL - High 140 mg/dL Correction Factor: 25 mg/dL/unit * Prandial insulin: Per carb ratio of 1 unit per 7 grams CHO consumed Outpatient Anti-Diabetic Meds Basal Insulin Bolus Insulin Assessment & Plan ASSESSMENT: * See progress note from 07/29/17 for more background info, in short: * Pt admitted with NSTEMI and receiving SQ basal bolus insulin regimen for hyperglycemia secondary to baseline DM (outpatient regimen on hold) * Patient is currently receiving an average of 57 units of insulin per day * 32 units of basal insulin (66%) * 25 units of prandial/correctional insulin * BSGs ranging 74 - 279 mg/dl over the past 24hrs * Changes needed to insulin regimen: * AM Fasting BSG = 165 mg/dl (venous sample drawn 1 hr 15 min prior was 78 mg/ dL). This is above goal range for patient based on inpatient targets and co- morbidities. Will increase Lantus. * Post-prandial BSGs continue to be above goal despite tightening carb ratio yesterday. Lunch BSG always tends to be the highest. Will schedule a separate carb ratio for breakfast in attempt to avoid spike in BSG at lunchtime. Discussed with RN; patient is not snacking between meals. RN will attempt to use new injection site incase of lipodystrophy affecting insulin absorption. PLAN FOR INPATIENT GLYCEMIC CONTROL: * Basal insulin * Lantus 16-18 units SQ BID * 16 units for BSG less than 160 mg/dL * 18 units for BSG 160 mg/dL or more * Bolus insulin * NovoLog per scale ACHS or Q6hrs while NPO * Goal Range: Low 110 mg/dL - High 140 mg/dL * Correction Factor: 25 mg/dL/unit * Nutritional / Prandial insulin per carb ratio of 1 unit per 7 grams CHO consumed (tighten to 5 at breakfast only) RECOMMENDATIONS FOR DISCHARGE: * * Please note that the plan above was derived based on current level of insulin resistance and hospital stress. These recommendations are appropriate for inpatient admission only. Plan of care upon discharge will need to be reassessed to avoid potential outpatient hypo/hyperglycemia. Thank you.
[2017-08-01] MEDS ORDERED: MILK AND MOLASSES ENEMA PR PRN (15:15)
--- NOTE | 2017-08-01 19:00 | Progress Note ---
Internal Med Progress Note Date of Service: Aug 01, 2017. Provider Documentation: SUBJECTIVE: patient examined after she went to X ray because of constipation. Denies shortness breath or chest pain or abdominal pain. OBJECTIVE: Physical Exam: General Appearance: no apparent distress Head: normocephalic, Atraumatic Eyes: normal inspection, EOMI, Neck: supple, trachea midline Respiratory/Chest: poor inspiratory effort when asked to take deep breaths Cardiovascular: S1, S2, No murmur Abdomen/GI:Soft, Non tender, Bowel sounds present Extremities:normal inspection, Trace edema Neurologic/Psych:AAOX3, grossly no focal neurological deficits Skin: normal color, warm ASSESSMENT & PLAN: NSTEMI H/O multivessel CAD s/p inferior [place] 2010 Poor candidate for PCI/CABG, Heparin ggt discontinued after 48 hours Continue ASA, Plavix, BB, Imdur, losartan, Statin, Imdur Acute on Chronic Systolic/Diastolic heart failure, ECHO: EF: 40-45% Developed hypoxia in ED after receiving IV fluids. S/P IV Lasix, and was on on PO Lasix, however diuresis and ARB has been cut back based on worsening renal function and nephrology following the patient HTN: Continue metoprolol, amlodipine Hold losartan for now Monitor DM II: A1C:8.9 Continue Lantus, ISS CHRONIC ANEMIA: Hb around 11.0 in Dec Monitor Hb DYSLIPIDEMIA Continue pravastatin HYPOTHYROIDISM S/P thyroidectomy for toxic multinodular goiter. TSH: normal Continue levothyroxine H/O VISUAL HALLUCINATIONS / H/O DELIRIUM Hospitalized twice over past year for altered mental status associated with visual hallucinations. Has underlying mild dementia. continue home meds monitor GLAUCOMA Continue Cosopt. Constipation: bowel regimen, Abdominal X ray shows stool burden VTE PX: heparin 5000 units q12 hours CODE STATUS: Full code. DISPOSITION Appears to be medically optimized as inpatient for cardiac health issues. Plan to discharge when patient makes bowel movements. Internal Medicine follow-up with Dr. La. Cardiology follow-up with Dr. Ruffin. PROCEDURES: ECHO: Moderate left ventricular systolic dysfunction. Apical akinesis. Lateral, posterior, and inferior hypokinesis. Anteroseptal akinesis. Mild concentric left ventricular hypertrophy. Grade 2 left ventricular diastolic dysfunction. Mild left atrial dilatation. Aortic valve sclerosis without significant stenosis. Moderate mitral regurgitation. Trace pulmonic regurgitation. Trace to mild tricuspid regurgitation. Mildly elevated estimated right ventricular systolic pressure. Vital Signs: Date Time Temp Pulse Resp B/P (MAP) Pulse Ox O2 Delivery O2 Flow Rate FiO2 08/01/17 18:41 Nasal Cannula 3.0 Humidified Oxygen 08/01/17 18:36 36.5 67 22 120/75 (90) 92 Nasal Cannula 3.0 Humidified Oxygen 08/01/17 16:00 Nasal Cannula 3.0 08/01/17 15:20 36.7 70 18 117/71 (86) 90 Nasal Cannula 5.0 08/01/17 12:11 36.5 68 16 117/71 (86) 90 Nasal Cannula 08/01/17 12:00 Nasal Cannula 3.0 08/01/17 08:00 Nasal Cannula 3.0 08/01/17 07:46 37.4 74 20 136/69 (91) 95 Nasal Cannula 08/01/17 04:00 Nasal Cannula 4.0 08/01/17 03:59 36.4 71 18 146/80 (102) BiPAP 08/01/17 00:08 37.3 76 19 116/72 (87) 96 Nasal Cannula 5.0 08/01/17 00:00 Nasal Cannula 4.0 07/31/17 20:01 97 Nasal Cannula 4.0 07/31/17 20:00 36.4 78 16 134/77 (96) 84 Lab Results: Results Past 24 Hours Test 07/31/17 20:03 08/01/17 05:24 08/01/17 06:45 08/01/17 10:12 Range/Units Bedside Glucose 162 165 341 70-90 mg/dl White Blood Count 8.40 4.8-10.8 K/uL Red Blood Count 3.48 4.2-5.4 M/uL Hemoglobin 10.7 12.0-16.0 g/dL Hematocrit 31.4 37-47 % Mean Corpuscular Volume 90.2 80-100 fL Mean Corpuscular Hemoglobin 30.7 25-34 pg Mean Corpuscular Hemoglobin Concent 34.1 32-36 g/dl Platelet Count 228 130-400 K/uL Mean Platelet Volume 11.9 7.4-10.4 fL Neutrophils (%) (Auto) 71.3 % Lymphocytes (%) (Auto) 14.9 % Monocytes (%) (Auto) 9.6 % Eosinophils (%) (Auto) 3.6 % Basophils (%) (Auto) 0.4 % Neutrophils # (Auto) 5.99 1.4-6.5 K/uL Lymphocytes # (Auto) 1.25 1.2-3.4 K/uL Monocytes # (Auto) 0.81 0.11-0.59 K/uL Eosinophils # (Auto) 0.30 0-0.5 K/uL Basophils # (Auto) 0.03 0-0.2 K/uL RDW Standard Deviation 43.1 36.4-46.3 fL RDW Coefficient of Variation 13.1 11.5-14.5 % Immature Granulocyte % (Auto) 0.2 % Immature Granulocyte # (Auto) 0.02 0.00-0.02 K/uL Activated Partial Thromboplast Time 26.4 21.0-31.0 SECONDS Partial Thromboplastin Ratio 1.0 Sodium Level 138 136-145 mmol/L Potassium Level 4.3 3.5-5.1 mmol/L Chloride Level 103 98-107 mmol/L Carbon Dioxide Level 27 21-32 mmol/L Anion Gap 8.0 3-11 mmol/L Blood Urea Nitrogen 60 7-18 mg/dl Creatinine 2.40 0.60-1.20 mg/dl Est Creatinine Clear Calc Drug Dose 17.0 ml/min Estimated GFR () 21.1 Estimated GFR (Non- 18.2 BUN/Creatinine Ratio 25.0 10-20 Random Glucose 78 70-99 mg/dl Calcium Level 8.7 8.5-10.1 mg/dl Total Bilirubin 0.6 0.2-1 mg/dl Aspartate Amino Transf (AST/SGOT) 18 15-37 U/L Alanine Aminotransferase (ALT/SGPT) 19 12-78 U/L Alkaline Phosphatase 77 45-117 U/L Pro-B-Type Natriuretic Peptide 27548 0-1800 pg/ml Total Protein 7.0 6.4-8.2 gm/dl Albumin 2.7 3.4-5.0 gm/dl Globulin 4.3 2.5-4.0 gm/dl Albumin/Globulin Ratio 0.6 0.9-2 Test 08/01/17 11:15 Range/Units Bedside Glucose 325 70-90 mg/dl
[2017-08-01] MEDS ORDERED: INSULIN GLARGINE SOLOSTAR 100 UNITS/ML 3 ML PEN SQ SCH (20:00)
[2017-08-01] MEDS: PRAVASTATIN SOD 40 MG TAB PO SCH (20:20)
[2017-08-02] VITALS (8 sets, daily range): BP systolic 94–120; BP diastolic 60–66; PULSE 64–80; TEMP 36.3–36.6; O2SAT 91–96
[2017-08-02] MEDS: LEVOTHYROXINE 50 MCG TAB PO SCH (05:48)
[2017-08-02 06:23] LABS: HEMATOCRIT 31.6 % (37-47); MEAN CELL VOLUME 92.4 fL (80-100); MEAN CORPUSCULAR HEMOGLOBIN 29.2 pg (25-34); MEAN CORPUSCULAR HGB CONC 31.6 g/dl (32-36); MEAN PLATELET VOLUME 11.2 fL (7.4-10.4); PLATELET COUNT 237 K/uL (130-400); RED BLOOD COUNT 3.42 M/uL (4.2-5.4); WHITE BLOOD COUNT 6.34 K/uL (4.8-10.8)
[2017-08-02 06:26] LABS: PARTIAL THROMBOPLASTIN RATIO 1.1
[2017-08-02] MEDS: INSULIN ASPART 100 UNITS/ML 3 ML PEN SQ SCH ×4 (09:52→21:00)
[2017-08-02] MEDS: INSULIN GLARGINE SOLOSTAR 100 UNITS/ML 3 ML PEN SQ SCH ×2 (09:53→21:35)
[2017-08-02] MEDS: MICONAZOLE NITRATE 2% CR 30 GM TUBE EXT SCH ×2 (09:59→21:27)
[2017-08-02] MEDS: DORZOLAMIDE/TIMOLOL 22.3/6.8MG/ML 10 ML BTL OP SCH ×2 (10:03→21:29)
[2017-08-02] MEDS: FLUTICASONE PROPIONATE NA SPR 16 GM BTL NAE SCH ×2 (10:07→21:28)
[2017-08-02] MEDS: ASPIRIN 81 MG ECTAB PO SCH (10:09)
[2017-08-02] MEDS: FUROSEMIDE 40 MG TAB PO SCH (10:10)
[2017-08-02] MEDS: ISOSORBIDE MONONITRATE 60 MG TABCR PO SCH (10:10)
[2017-08-02] MEDS: AMLODIPINE BESYLATE 5 MG TAB PO SCH (10:11)
[2017-08-02] MEDS: FAMOTIDINE 20 MG TAB PO SCH ×2 (10:12→21:31)
[2017-08-02] MEDS: DOCUSATE SODIUM/SENNA 50/8.6MG TAB PO SCH (10:13)
[2017-08-02] MEDS: CLOPIDOGREL BISULFATE 75 MG TAB PO SCH (10:13)
[2017-08-02] MEDS: SENNA 8.6 MG TAB PO SCH (10:14)
[2017-08-02] MEDS: QUETIAPINE FUMARATE 25 MG TAB PO SCH ×2 (10:15→21:33)
[2017-08-02] MEDS: METOPROLOL SUCC 50MG EXT REL TAB PO SCH (10:15)
[2017-08-02] MEDS: CHOLECALCIFEROL 1000 INTER.UNIT TAB PO SCH ×2 (10:16→21:31)
[2017-08-02] MEDS: LOSARTAN POTASSIUM 25 MG TAB PO SCH (10:20)
[2017-08-02] MEDS: HEPARIN SOD 5000 UNIT/0.5 ML CARP SQ SCH ×2 (10:29→21:35)
--- NOTE | 2017-08-02 14:20 | Progress Note ---
Internal Med Progress Note Date of Service: Aug 02, 2017. Provider Documentation: SUBJECTIVE: patient had bowel movements with bowel regimen OBJECTIVE: Physical Exam: General Appearance: no apparent distress Head: normocephalic, Atraumatic Eyes: normal inspection, EOMI, Neck: supple, trachea midline Respiratory/Chest: clear to auscultation Cardiovascular: S1, S2, No murmur Abdomen/GI:Soft, Non tender, Bowel sounds present Extremities:normal inspection, Trace edema Neurologic/Psych:AAOX3, grossly no focal neurological deficits Skin: normal color, warm ASSESSMENT & PLAN: 81-year-old female with a history of Medically Managed Multivessel CAD, Ischemic Cardiomyopathy (LVEF of 40% -45% with multiple RWMAs), Combined Diastolic and Systolic CHF, Hypertension, Type 2 DM, Dyslipidemia and Hypothyroidism who was admitted acutely on 07/27/2017 after developing mid epigastric discomfort which radiated through to her back with associated nausea. Her EKG was abnormal, but no acute changes were noted. Her initial troponin I was 0.036 ng/mL and subsequently peaked at 44.70 ng/mL. Total CKs and CK-MBs were elevated as well consistent with an NSTEMI. She has been managed medically and has had evidence of acute on chronic combined diastolic and systolic CHF. The patient has had a negative fluid balance of minus 3487 mL total since being admitted and her breathing has returned to baseline. Patient also had constipation during hospital stay reportedly for 5 days but was able to make bowel movement between 08/01/17 to 08/02/17 NSTEMI H/O multivessel CAD s/p inferior [place] 2010 Poor candidate for PCI/CABG, Heparin ggt discontinued after 48 hours Continue ASA, Plavix, BB, Imdur, losartan, Statin, Imdur Acute on Chronic Systolic/Diastolic heart failure, ECHO: EF: 40-45% Developed hypoxia in ED after receiving IV fluids. S/P IV Lasix, and was on on PO Lasix, however diuresis and ARB has been cut back based on worsening renal function and nephrology following the patient HTN: Continue metoprolol, amlodipine Hold losartan for now Monitor DM II: A1C:8.9 Continue Lantus, ISS CHRONIC ANEMIA: Hb around 11.0 in Feb Monitor Hb DYSLIPIDEMIA Continue pravastatin HYPOTHYROIDISM S/P thyroidectomy for toxic multinodular goiter. TSH: normal Continue levothyroxine H/O VISUAL HALLUCINATIONS / H/O DELIRIUM Hospitalized twice over past year for altered mental status associated with visual hallucinations. Has underlying mild dementia. continue home meds monitor GLAUCOMA Continue Cosopt. Constipation: bowel regimen, Abdominal X ray shows stool burden, patient made bowel movements overnight between 08/01/17 to 08/02/17 VTE PX: heparin 5000 units q12 hours as inpatient CODE STATUS: Full code. DISPOSITION: Discharge to home Internal Medicine follow-up with Dr.Timothy Mindy La MD General Internal Medicine [facility] on Sunday08/06/2017 at 10:45 AM ) Cardiology follow-up with Dr. Ruffin from [facility] group on at 10 AM PROCEDURES: ECHO: Moderate left ventricular systolic dysfunction. Apical akinesis. Lateral, posterior, and inferior hypokinesis. Anteroseptal akinesis. Mild concentric left ventricular hypertrophy. Grade 2 left ventricular diastolic dysfunction. Mild left atrial dilatation. Aortic valve sclerosis without significant stenosis. Moderate mitral regurgitation. Trace pulmonic regurgitation. Trace to mild tricuspid regurgitation. Mildly elevated estimated right ventricular systolic pressure. Vital Signs: Date Time Temp Pulse Resp B/P (MAP) Pulse Ox O2 Delivery O2 Flow Rate FiO2 08/02/17 12:01 36.3 80 12 110/60 (77) 94 Nasal Cannula 3.0 08/02/17 10:45 96 Nasal Cannula 3.0 08/02/17 08:00 Nasal Cannula 3.0 08/02/17 07:21 36.5 64 13 120/66 (84) 96 Nasal Cannula 3.0 08/02/17 00:58 36.6 72 20 94/62 (73) 93 Nasal Cannula 3.0 08/02/17 00:00 Nasal Cannula 3.0 08/01/17 22:32 62 98 40 08/01/17 20:00 Nasal Cannula 3.0 08/01/17 18:41 Nasal Cannula 3.0 Humidified Oxygen 08/01/17 18:36 36.5 67 22 120/75 (90) 92 Nasal Cannula 3.0 Humidified Oxygen 08/01/17 16:00 Nasal Cannula 3.0 08/01/17 15:20 36.7 70 18 117/71 (86) 90 Nasal Cannula 5.0 Lab Results: Results Past 24 Hours Test 08/01/17 16:22 08/01/17 20:04 08/02/17 05:50 08/02/17 07:30 Range/Units Bedside Glucose 89 170 83 70-90 mg/dl White Blood Count 6.34 4.8-10.8 K/uL Red Blood Count 3.42 4.2-5.4 M/uL Hemoglobin 10.0 12.0-16.0 g/dL Hematocrit 31.6 37-47 % Mean Corpuscular Volume 92.4 80-100 fL Mean Corpuscular Hemoglobin 29.2 25-34 pg Mean Corpuscular Hemoglobin Concent 31.6 32-36 g/dl RDW Standard Deviation 44.8 36.4-46.3 fL RDW Coefficient of Variation 13.3 11.5-14.5 % Platelet Count 237 130-400 K/uL Mean Platelet Volume 11.2 7.4-10.4 fL Activated Partial Thromboplast Time 28.4 21.0-31.0 SECONDS Partial Thromboplastin Ratio 1.1 Test 08/02/17 11:21 Range/Units Bedside Glucose 190 70-90 mg/dl
[2017-08-02] MEDS ORDERED: LSX40 PO (14:30)
--- NOTE | 2017-08-02 14:33 | Discharge Instructions ---
Discharge Instructions Date of Service Aug 02, 2017. Admission Reason for Admission: Acute Myocardial Infarction, Hypoxia Discharge Discharge Diagnosis / Problem: myocardial infarction, diabetes, constipation Discharge Goals Goal(s): Improve function Activity Recommendations Activity Limitations: as noted below Lifting Limitations: until after follow-up appointment Exercise/Sports Limitations: until after follow-up appointment Shower/Bathe: no limitations . Instructions / Follow-Up Instructions / Follow-Up Encourage soft foods. Furosemide at home increased from 20 mg daily to 40 mg daily. keep current home regimen, check fingerstick glucose to avoid blood sugars less than 60, adjust insulin as needed based on blood sugars Please follow up with your doctors: Internal Medicine follow-up with Dr.Timothy Mindy La MD General Internal Medicine [facility] on Sunday08/06/2017 at 10:45 AM ) Cardiology follow-up with Dr. Ruffin from [facility] Cardiology group on at 10 AM If you have new onset chest pain, severe shortness of breath please seek immediate medical attention in Emergency Room Current Hospital Diet Patient's current hospital diet: Diabetes Type 2 Diet, AHA Diet (Heart Healthy) Discharge Diet Recommended Diet: AHA Diet (Heart Healthy) (soft foods), Diabetes Type 2 Diet ( soft foods) Fluid Restriction: 1500 ml (6 cups) Pending Studies Studies pending at discharge: no Laboratory Results 08/02/17 05:50 08/05/17 05:45 Test 07/27/17 02:15 07/27/17 02:31 07/27/17 03:07 07/27/17 09:05 Urine Color YELLOW Urine Appearance CLEAR (CLEAR) Urine pH 8.5 (4.5-7.5) Urine Specific [place] 1.024 (1.000-1.030) Urine Protein 1+ (NEG) Urine Glucose (UA) 3+ (NEG) Urine Ketones NEG (NEG) Urine Occult Blood NEG (NEG) Urine Nitrite NEG (NEG) Urine Bilirubin NEG (NEG) Urine Urobilinogen NEG (NEG) Urine Leukocyte Esterase NEG (NEG) Urine WBC (Auto) 0 /hpf (0-5) Urine RBC (Auto) 0-4 /hpf (0-4) Urine Hyaline Casts (Auto) 0 /lpf (0-5) Urine Epithelial Cells (Auto) 0-5 /lpf (0-5) Urine Bacteria (Auto) NEG (NEG) Direct Bilirubin < 0.1 mg/dl (0-0.2) Lipase 177 U/L (73-393) Bedside Hemoglobin 12.2 g/dl (12.0-16.0) Bedside Hematocrit 36 % (37-47) Bedside Sodium 138 mEq/L (135-144) Bedside Potassium 4.3 mEq/L (3.3-5.0) Bedside Chloride 100 mEq/L (101-112) Bedside Total CO2 23 mEq/l (24-31) Bedside Blood Urea Nitrogen 36 mg/dl (7-18) Bedside Creatinine 2.2 mg/dl (0.6-1.3) Bedside Glucose (other) 359 mg/dl (70-99) Bedside Ionized Calcium (Fish) 1.08 mmol/l (1.12-1.32) Prothrombin Time 10.3 SECONDS (9.0-12.0) Prothromb Time International Ratio 1.0 (0.9-1.1) Test 07/28/17 08:12 08/01/17 05:24 08/02/17 05:50 08/03/17 10:14 Estimated Average Glucose 209 mg/dl Hemoglobin A1c 8.9 % (4.5-5.6) Triglycerides Level 81 mg/dl (0-150) Cholesterol Level 125 mg/dl (0-200) HDL Cholesterol 72 mg/dl LDL Cholesterol, Calculated 37 mg/dl VLDL Cholesterol, Calculated 16 mg/dl Cholesterol/HDL Ratio 1.7 Thyroid Stimulating Hormone (TSH) 1.310 uIu/ml (0.300-4.500) Immature Granulocyte % (Auto) 0.2 % White Blood Count 8.40 K/uL (4.8-10.8) Red Blood Count 3.48 M/uL (4.2-5.4) 3.42 M/uL (4.2-5.4) Hemoglobin 10.7 g/dL (12.0-16.0) Hematocrit 31.4 % (37-47) Mean Corpuscular Volume 90.2 fL (80-100) 92.4 fL (80-100) Mean Corpuscular Hemoglobin 30.7 pg (25-34) 29.2 pg (25-34) Mean Corpuscular Hemoglobin Concent 34.1 g/dl (32-36) 31.6 g/dl (32-36) Platelet Count 228 K/uL (130-400) Mean Platelet Volume 11.9 fL (7.4-10.4) 11.2 fL (7.4-10.4) Neutrophils (%) (Auto) 71.3 % Lymphocytes (%) (Auto) 14.9 % Monocytes (%) (Auto) 9.6 % Eosinophils (%) (Auto) 3.6 % Basophils (%) (Auto) 0.4 % Neutrophils # (Auto) 5.99 K/uL (1.4-6.5) Lymphocytes # (Auto) 1.25 K/uL (1.2-3.4) Monocytes # (Auto) 0.81 K/uL (0.11-0.59) Eosinophils # (Auto) 0.30 K/uL (0-0.5) Basophils # (Auto) 0.03 K/uL (0-0.2) Immature Granulocyte # (Auto) 0.02 K/uL (0.00-0.02) RDW Standard Deviation 44.8 fL (36.4-46.3) RDW Coefficient of Variation 13.3 % (11.5-14.5) Activated Partial Thromboplast Time 28.4 SECONDS (21.0-31.0) Partial Thromboplastin Ratio 1.1 Arterial Blood pH 7.47 (7.35-7.45) Arterial Blood Partial Pressure CO2 33 mmHg (35-46) Arterial Blood Partial Pressure O2 63 mm/Hg (80-95) Arterial Blood HCO3 24 mmol/L (19-24) Arterial Blood Oxygen Saturation 90.8 % (90-95) Arterial Blood Base Excess 0.3 mEq/L (-9-1.8) Arterial Blood Gas Delivery 3 L Rex Test POS (POS) Test 08/05/17 05:45 08/05/17 07:30 08/05/17 08:37 Anion Gap 10.0 mmol/L (3-11) Est Creatinine Clear Calc Drug Dose 13.5 ml/min Estimated GFR () 16.8 Estimated GFR (Non- 14.5 BUN/Creatinine Ratio 25.9 (10-20) Calcium Level 8.9 mg/dl (8.5-10.1) Magnesium Level 2.5 mg/dl (1.8-2.4) Total Bilirubin 0.5 mg/dl (0.2-1) Aspartate Amino Transf (AST/SGOT) 14 U/L (15-37) Alanine Aminotransferase (ALT/SGPT) 13 U/L (12-78) Alkaline Phosphatase 80 U/L (45-117) Total Creatine Kinase 44 U/L (26-192) Creatine Kinase MB 0.9 ng/ml (0.5-3.6) Troponin I 0.405 ng/ml (0-0.045) Pro-B-Type Natriuretic Peptide 8153 pg/ml (0-1800) Total Protein 6.9 gm/dl (6.4-8.2) Albumin 2.7 gm/dl (3.4-5.0) Globulin 4.2 gm/dl (2.5-4.0) Albumin/Globulin Ratio 0.6 (0.9-2) Bedside Glucose 195 mg/dl (70-90) Creatine Kinase MB Ratio (0-3.0) Hemoglobin A1c Test 07/28/17 08:12 Range/Units Estimated Average Glucose 209 mg/dl Hemoglobin A1c 8.9 H 4.5-5.6 % Lipid Panel Test 07/28/17 08:12 Range/Units Triglycerides Level 81 0-150 mg/dl Cholesterol Level 125 0-200 mg/dl HDL Cholesterol 72 mg/dl Cholesterol/HDL Ratio 1.7 LDL Cholesterol, Calculated 37 mg/dl Medical Emergencies . Who to Call and When: Medical Emergencies: If at any time you feel your situation is an emergency, please call 911 immediately. . Non-Emergent Contact Non-Emergency issues call your: Primary Care Provider, Public Health Technician Call Non-Emergent contact if: your pain is not controlled, your pain is worsening, your pain is unusual for you, your pain is concerning you . . "Provider Documentation" section prepared by Walter Roberts. . VTE Core Measure Inpt VTE Proph given/why not?: Other Anticoagulation (IV heparin)
--- NOTE | 2017-08-02 14:44 | Discharge Summary ---
"Discharge Summary Date of Service Aug 02, 2017. Discharge Summary Admission Date: Jul 27, 2017 at 10:08 Discharge Date: Aug 02, 2017 Principal Diagnosis: myocardial infarction, diabetes, constipation, history of CHF Procedures: heparin drip, transthoracic echo Consultations: cardiology Medication Reconciliation New Medications: Furosemide (Furosemide) 40 Mg Tab 40 MG PO DAILY for 30 Days, #30 TAB 1 Refill Continued Medications: Acetaminophen (Tylenol) 325 Mg Tab 650 MG PO Q4 PRN for Pain or Fever, TAB Amlodipine (Norvasc) 10 Mg Tab 10 MG PO DAILY, #30 Aspirin (Aspirin Chewable) 81 Mg Chew 81 MG PO DAILY Calcitriol (Rocaltrol Cap) 0.25 Mcg Cap 0.25 MCG PO MWF for 30 Days, CAP 5 Refills Take MWF Cholecalciferol (D 1000) 1,000 Unit Cap 1000 UNITS PO BID Clopidogrel (Plavix) 75 Mg Tab 75 MG PO DAILY Dorzolamide Hcl-Timolol Maleat (Cosopt Oph) 1 Mary Mary 1 DROPS OP BID, 3 Refills Famotidine (Pepcid) 20 Mg Tab 20 MG PO BID, TAB Fluticasone Propionate (Nasal) (Flonase Allergy Relief) 50 Mcg/Act Spr 2 SPRAYS MARK BID Furosemide (Lasix) 40 Mg Tab 20 MG PO DAILY, TAB Insulin Aspart (Novolog) 100 Units/Ml Inj 10 UNITS SQ AC Insulin Glargine (Lantus Solostar) 100 Unit/Ml Inj 13 UNITS SQ BID Isosorbide Mononitrate Ext Rel (Imdur Ext Rel) 60 Mg Ertab 60 MG PO QAM, TAB Levothyroxine Sodium (Synthroid) 50 Mcg Tab 50 MCG PO QAM Losartan Potassium (Losartan Potassium) 25 Mg Tab 25 MG PO QAM for 30 Days, TAB Lutein (Lutein) 6 Mg Tab 6 MG PO DAILY Metoprolol Succinate (Toprol Xl) 200 Mg Tab 200 MG PO DAILY, #30 Nitroglycerin (Nitrostat) 0.4 Mg Tab 0.4 MG UT PRN for Chest Pain, 0 Refills One tablet under tongue if needed for chest pain. May repeat 3 times. If chest pain continues, call 911. Nystatin/Triamcinolone (Mycolog ||) Cr 1 APPLN TOP BID for APPLY TO CONI AREA Pravastatin Sodium (Pravastatin Sodium) 40 Mg Tab 40 MG PO QPM, #90 Quetiapine Fumarate (Seroquel) 25 Mg Tab 25 MG PO HS, TAB Quetiapine Fumarate (Seroquel) 25 Mg Tab 12.5 MG PO QAM, TAB Senna/Docusate Sod (Senokot S) 1 Tab Tab 1 TAB PO DAILY, TAB Admission Information HPI (per Admitting provider): 81 YO female followed by Dr. La for Internal Medicine and Dr. Ruffin for Cardiology. History of ischemic heart disease, hypertension, CKD, dyslipidemia, DM, and other problems noted below. Suffered inferior myocardial infarction in 2010. Cardiac cath demonstrated total occlusion of distal posterior descending artery. The vessel was very small and no intervention was performed. Diffuse disease of other coronary vessels was noted. Patient developed epigastric pain last evening around 19:00 after eating chicken nuggets for dinner. Pain radiated to her back. It was associated with some nausea, but no SOB or diaphoresis. She tried antacid without relief. Pain persisted for several hours, so she called EMS around 01:30 this morning. Initial EKG in ED did not show any apparent acute findings. Initial CPK, CPK-MB, troponin were normal. CT of chest without contrast did not show any acute findings. CT of abdomen + pelvis without IV or oral contrast showed nonobstructing renal calculi, diverticulosis, no apparent diverticulitis or other acute findings. Oxygenating well on RA at time of presentation to ED. Received IV NSS x 500 ml during the night. O2 sat this morning at 07:50 was 79% on RA. Supplemental O2 administered. Portable chest x-ray demonstrated pulmonary edema. Furosemide 40 mg IV x 1 was given. Repeat serum troponin was drawn at 09:05 and had risen from 0.0.6 to 10.1. Patient referred for admission. She was pain-free and breathing comfortably at time of my assessment. . Physical Exam (per Admitting): General Appearance: WD/WN, no apparent distress Head: normocephalic, atraumatic Eyes: normal inspection, PERRL, EOMI, sclerae normal, + pertinent finding ( conjunctivae normal) ENT: + pertinent finding (hard of hearing; edentulous) Neck: supple, no adenopathy, thyroid normal, trachea midline Respiratory/Chest: no respiratory distress, no accessory muscle use, + rales (bibasilar) Cardiovascular: regular rate, rhythm, no gallop, no murmur, + JVD, + abnormal peripheral pulses (diminished pedal pulses), + pertinent finding ( trace pretibial edema) Abdomen/GI: normal bowel sounds, soft, no organomegaly, no pulsatile mass, occult blood negative (per ED provider), + tenderness (mild epigastric tenderness) Extremities/Musculoskelatal: no calf tenderness, normal capillary refill, + pedal edema (trace), + pertinent finding (s/p transmet amputation left foot; superficial ulceration dorsum right great toe without erythema or drainage) Neurologic/Psych: manager software II-XII nml as tested (PERRL, EOMI, no facial palsy, no dysarthria, tongue midline), no motor/sensory deficits (motor strength upper and lower extremities grossly intact), alert, normal mood/affect, + disoriented (oriented to person, place, month & year but not date; could not name president ; no apparent hallucinations) Skin: normal color, warm/dry, no rash, + pertinent finding (healing burn dorsum right hand) Lymphatic: no adenopathy (cervical) Hospital Course 81-year-old female with a history of Medically Managed Multivessel CAD, Ischemic Cardiomyopathy (LVEF of 40% -45% with multiple RWMAs), Combined Diastolic and Systolic CHF, Hypertension, Type 2 DM, Dyslipidemia and Hypothyroidism who was admitted acutely on 07/27/2017 after developing mid epigastric discomfort which radiated through to her back with associated nausea. Her EKG was abnormal, but no acute changes were noted. Her initial troponin I was 0.036 ng/mL and subsequently peaked at 44.70 ng/mL. Total CKs and CK-MBs were elevated as well consistent with an NSTEMI. She has been managed medically and has had evidence of acute on chronic combined diastolic and systolic CHF. The patient has had a negative fluid balance of minus 3487 mL total since being admitted and her breathing has returned to baseline. Patient also had constipation during hospital stay reportedly for 5 days but was able to make bowel movement between 08/01/17 to 08/02/17 NSTEMI H/O multivessel CAD s/p inferior [place] 2010 Poor candidate for PCI/CABG, Heparin ggt discontinued after 48 hours Continue ASA, Plavix, BB, Imdur, losartan, Statin, Imdur Acute on Chronic Systolic/Diastolic heart failure, ECHO: EF: 40-45% Developed hypoxia in ED after receiving IV fluids. S/P IV Lasix, and was on on PO Lasix, however diuresis and ARB has been cut back based on worsening renal function and nephrology following the patient HTN: Continue metoprolol, amlodipine Hold losartan for now Monitor DM II: A1C:8.9 Continue Lantus, ISS CHRONIC ANEMIA: Hb around 11.0 in Feb Monitor Hb DYSLIPIDEMIA Continue pravastatin HYPOTHYROIDISM S/P thyroidectomy for toxic multinodular goiter. TSH: normal Continue levothyroxine H/O VISUAL HALLUCINATIONS / H/O DELIRIUM Hospitalized twice over past year for altered mental status associated with visual hallucinations. Has underlying mild dementia. continue home meds monitor GLAUCOMA Continue Cosopt. Constipation: bowel regimen, Abdominal X ray shows stool burden, patient made bowel movements overnight between 08/01/17 to 08/02/17 VTE PX: heparin 5000 units q12 hours as inpatient CODE STATUS: Full code. DISPOSITION: Discharge to home Internal Medicine follow-up with Dr.Timothy Mindy La MD General Internal Medicine [facility] on Sunday08/06/2017 at 10:45 AM ([phone]) Cardiology follow-up with Dr. Ruffin from [facility] Cardiology group on at 10 AM PROCEDURES: ECHO: Moderate left ventricular systolic dysfunction. Apical akinesis. Lateral, posterior, and inferior hypokinesis. Anteroseptal akinesis. Mild concentric left ventricular hypertrophy. Grade 2 left ventricular diastolic dysfunction. Mild left atrial dilatation. Aortic valve sclerosis without significant stenosis. Moderate mitral regurgitation. Trace pulmonic regurgitation. Trace to mild tricuspid regurgitation. Mildly elevated estimated right ventricular systolic pressure. Total time spent on discharge = This includes examination of the patient, discharge planning, medication reconciliation, and communication with other providers. Discharge Instructions Please follow up with your doctors: Internal Medicine follow-up with Dr.Timothy Mindy La MD General Internal Medicine [facility] on Sunday08/06/2017 at 10:45 AM ) Cardiology follow-up with Dr. Ruffin from [facility] Cardiology group on at 10 AM If you have new onset chest pain, severe shortness of breath please seek immediate medical attention in Emergency Room"
[2017-08-02 18:28] LABS: ARTERIAL BLD GAS O2 SATURATION 87.9 % (90-95); ARTERIAL BLOOD GAS BASE EXCESS -0.2 mEq/L (-9-1.8); ARTERIAL BLOOD GAS HCO3 23 mmol/L (19-24); ARTERIAL BLOOD GAS PO2 57 mm/Hg (80-95); ARTERIAL BLOOD GAS pH 7.47 (7.35-7.45)
[2017-08-02 18:29] LABS: ALLEN TEST POS (POS)
[2017-08-02 18:30] LABS: O2 ADMINISTRATION 3 LITERS O2
[2017-08-02] MEDS: PRAVASTATIN SOD 40 MG TAB PO SCH (21:32)
[2017-08-03] MEDS ORDERED: ALUMINUM/MAGNESIUM/SIMETH (MAALOX MAX) 30 ML UDC PO ONE (00:04)
[2017-08-03 00:07] VITALS: BP 105/66; PULSE 70; TEMP 36.5; O2SAT 96
[2017-08-03] MEDS: MoRPHine SULFATE 2 MG/ML CARP IV PRN ×2 (02:45→02:57)
[2017-08-03 03:09] VITALS: PULSE 89; O2SAT 94
[2017-08-03 03:20] VITALS: PULSE 84; O2SAT 98
[2017-08-03] MEDS ORDERED: NITROGLYCERIN OINT 2% 1GM PACKET EXT STA (03:25)
[2017-08-03 03:38] VITALS: BP 138/84; PULSE 78; O2SAT 100
[2017-08-03 04:18] LABS: BLOOD UREA NITROGEN 72 mg/dl (7-18); BUN/CREATININE RATIO 25.9 (10-20); CALCIUM 8.8 mg/dl (8.5-10.1); CARBON DIOXIDE 25 mmol/L (21-32); CHLORIDE 103 mmol/L (98-107); GLUCOSE 215 mg/dl (70-99); POTASSIUM 4.4 mmol/L (3.5-5.1); SODIUM 136 mmol/L (136-145)
[2017-08-03] MEDS: LEVOTHYROXINE 50 MCG TAB PO SCH (06:19)
--- NOTE | 2017-08-03 07:13 | DIAGNOSTIC IMAGING REPORT ---
SINGLE VIEW CHEST CLINICAL HISTORY: Dyspnea. FINDINGS: An AP, portable, upright chest radiograph is compared to study dated 08/01/2017. The examination is degraded by portable technique and patient rotation. The heart is enlarged and there is atherosclerotic calcification of the thoracic aorta. There is pulmonary vascular congestion with evidence of interstitial edema. There are layering pleural effusions with bibasilar consolidation. No pneumothorax is seen. The skeletal structures are osteopenic. The bony thorax is grossly intact. IMPRESSION: 1. Cardiomegaly with evidence of congestive failure and interstitial edema. This has worsened from 08/01/2017. 2. Layering pleural effusions with bibasilar consolidation. This likely represents atelectasis. Cortical clinically for evidence of superimposed pneumonia. Electronically signed by: Satish Morales M.D. 08/03/2017 7:12 AM Dictated Date/Time: 08/03/2017 7:11 AM
[2017-08-03 07:30] VITALS: BP 148/68; PULSE 82; TEMP 36.5; O2SAT 90
[2017-08-03] MEDS ORDERED: FUROSEMIDE INJ 40 MG in SYRINGE 0 ML IV ONE (08:00)
[2017-08-03] MEDS: INSULIN GLARGINE SOLOSTAR 100 UNITS/ML 3 ML PEN SQ SCH ×2 (08:33→21:25)
[2017-08-03] MEDS: HEPARIN SOD 5000 UNIT/0.5 ML CARP SQ SCH ×2 (08:33→21:24)
[2017-08-03] MEDS: INSULIN ASPART 100 UNITS/ML 3 ML PEN SQ SCH ×4 (08:33→21:00)
[2017-08-03] MEDS: CHOLECALCIFEROL 1000 INTER.UNIT TAB PO SCH ×2 (08:37→20:14)
[2017-08-03] MEDS: DORZOLAMIDE/TIMOLOL 22.3/6.8MG/ML 10 ML BTL OP SCH ×2 (08:38→20:12)
[2017-08-03] MEDS: FLUTICASONE PROPIONATE NA SPR 16 GM BTL NAE SCH ×2 (08:38→20:11)
[2017-08-03] MEDS: MICONAZOLE NITRATE 2% CR 30 GM TUBE EXT SCH ×2 (08:38→20:11)
[2017-08-03] MEDS: METOPROLOL SUCC 50MG EXT REL TAB PO SCH (08:38)
[2017-08-03] MEDS: AMLODIPINE BESYLATE 5 MG TAB PO SCH (08:38)
[2017-08-03] MEDS: QUETIAPINE FUMARATE 25 MG TAB PO SCH ×2 (08:39→21:09)
[2017-08-03] MEDS: FUROSEMIDE 40 MG TAB PO SCH (08:39)
[2017-08-03] MEDS: CLOPIDOGREL BISULFATE 75 MG TAB PO SCH (08:39)
[2017-08-03] MEDS: ASPIRIN 81 MG ECTAB PO SCH (08:39)
[2017-08-03] MEDS: CALCITRIOL 0.25 MCG CAP PO SCH (08:39)
[2017-08-03] MEDS: SENNA 8.6 MG TAB PO SCH (08:39)
[2017-08-03] MEDS: ISOSORBIDE MONONITRATE 60 MG TABCR PO SCH ×2 (08:39→20:12)
[2017-08-03] MEDS: LOSARTAN POTASSIUM 25 MG TAB PO SCH (08:40)
[2017-08-03] MEDS: DOCUSATE SODIUM/SENNA 50/8.6MG TAB PO SCH (08:40)
[2017-08-03] MEDS: FAMOTIDINE 20 MG TAB PO SCH ×2 (08:40→20:14)
[2017-08-03 10:26] LABS: ARTERIAL BLD GAS O2 SATURATION 90.8 % (90-95); ARTERIAL BLOOD GAS BASE EXCESS 0.3 mEq/L (-9-1.8); ARTERIAL BLOOD GAS HCO3 24 mmol/L (19-24); ARTERIAL BLOOD GAS PO2 63 mm/Hg (80-95); ARTERIAL BLOOD GAS pH 7.47 (7.35-7.45); O2 ADMINISTRATION 3 L
[2017-08-03 10:27] LABS: ALLEN TEST POS (POS)
[2017-08-03 10:51] LABS: BUN/CREATININE RATIO 27.2 (10-20); CALCIUM 8.6 mg/dl (8.5-10.1); CREATININE 2.6 mg/dl (0.60-1.20); POTASSIUM 4.2 mmol/L (3.5-5.1)
[2017-08-03 10:59] LABS: ALB/GLOB RATIO 0.6 (0.9-2); CKMB/CK RATIO 4.7 (0-3.0)
[2017-08-03 15:31] VITALS: BP 131/84; PULSE 75; TEMP 36.5; O2SAT 90
--- NOTE | 2017-08-03 16:16 | Progress Note ---
Internal Med Progress Note Date of Service: Aug 03, 2017. Provider Documentation: SUBJECTIVE: patient's discharge was canceled on 08/02/17 as she was demonstrating hypoxemia on pulse oximetry which has been confirmed by arterial blood gas. also on CXR seen to have bilateral infiltrates and still elevated BNP. Troponins downtrending. Patient has been given increase doses of IV lasix and is making urine. Denies chest pain this morning or worsening shortness of breath. Have called family member Mr. Llanes [phone]. Have notified [facility] cardiology group that patient remains in hospital and appreciate further recommendations in her management OBJECTIVE: Physical Exam: General Appearance: no apparent distress, on nasal cannula Head: normocephalic, Atraumatic Eyes: normal inspection, EOMI, Neck: supple, trachea midline Respiratory/Chest: good air entry, but some bilateral congestion on lung auscultation Cardiovascular: S1, S2, No murmur Abdomen/GI:Soft, Non tender, Bowel sounds present Extremities:normal inspection, Trace edema Neurologic/Psych:AAOX3, grossly no focal neurological deficits Skin: normal color, warm ASSESSMENT & PLAN: 81-year-old female with a history of Medically Managed Multivessel CAD, Ischemic Cardiomyopathy (LVEF of 40% -45% with multiple RWMAs), Combined Diastolic and Systolic CHF, Hypertension, Type 2 DM, Dyslipidemia and Hypothyroidism who was admitted acutely on 07/27/2017 after developing mid epigastric discomfort which radiated through to her back with associated nausea. Her EKG was abnormal, but no acute changes were noted. Her initial troponin I was 0.036 ng/mL and subsequently peaked at 44.70 ng/mL. Total CKs and CK-MBs were elevated as well consistent with an NSTEMI. She has been managed medically and has had evidence of acute on chronic combined diastolic and systolic CHF. The patient has had a negative fluid balance of minus 3487 mL total since being admitted and her breathing has returned to baseline. Patient also had constipation during hospital stay reportedly for 5 days but was able to make bowel movement between 08/01/17 to 08/02/17 patient's discharge was canceled on 08/02/17 as she was demonstrating hypoxemia on pulse oximetry which has been confirmed by arterial blood gas. also on CXR seen to have bilateral infiltrates and still elevated BNP. Troponins downtrending. Patient has been given increase doses of IV lasix and is making urine. Denies chest pain this morning or worsening shortness of breath. Have called family member Mr. Llanes [phone]. Have notified [facility] cardiology group that patient remains in hospital and appreciate further recommendations in her management NSTEMI H/O multivessel CAD s/p inferior [place] 2010 Poor candidate for PCI/CABG, Heparin ggt discontinued after 48 hours Continue ASA, Plavix, BB, Imdur, losartan, Statin, Imdur Acute on Chronic Systolic/Diastolic heart failure, ECHO: EF: 40-45% Lasix now increased to 40 mg IV BID HTN: Continue metoprolol, amlodipine Hold losartan for now Monitor DM II: A1C:8.9 Continue Lantus, ISS CHRONIC ANEMIA: Hb around 11.0 in Dec Monitor Hb DYSLIPIDEMIA Continue pravastatin HYPOTHYROIDISM S/P thyroidectomy for toxic multinodular goiter. TSH: normal Continue levothyroxine H/O VISUAL HALLUCINATIONS / H/O DELIRIUM Hospitalized twice over past year for altered mental status associated with visual hallucinations. Has underlying mild dementia. continue home meds monitor GLAUCOMA Continue Cosopt. Constipation: bowel regimen, Abdominal X ray shows stool burden, patient made bowel movements overnight between 08/01/17 to 08/02/17 VTE PX: heparin 5000 units q12 hours as inpatient CODE STATUS: Full code. DISPOSITION: remains inpatient PROCEDURES: ECHO: Moderate left ventricular systolic dysfunction. Apical akinesis. Lateral, posterior, and inferior hypokinesis. Anteroseptal akinesis. Mild concentric left ventricular hypertrophy. Grade 2 left ventricular diastolic dysfunction. Mild left atrial dilatation. Aortic valve sclerosis without significant stenosis. Moderate mitral regurgitation. Trace pulmonic regurgitation. Trace to mild tricuspid regurgitation. Mildly elevated estimated right ventricular systolic pressure. Vital Signs: Date Time Temp Pulse Resp B/P (MAP) Pulse Ox O2 Delivery O2 Flow Rate FiO2 08/03/17 15:31 36.5 75 22 131/84 (100) 90 Nasal Cannula 3.0 08/03/17 08:00 Nasal Cannula 3.0 08/03/17 07:30 36.5 82 22 148/68 (94) 90 Nasal Cannula 2.0 08/03/17 03:38 78 22 138/84 (102) 100 BiPAP 08/03/17 03:20 84 33 98 BiPAP/CPAP 80 08/03/17 03:09 89 94 100 922/17 00:20 Nasal Cannula 3.0 08/03/17 00:07 36.5 70 20 105/66 (79) 96 Nasal Cannula 3.0 08/02/17 19:35 36.4 74 22 103/63 (76) 91 Nasal Cannula 3.0 08/02/17 18:00 94 Nasal Cannula 3.0 Lab Results: Results Past 24 Hours Test 08/02/17 16:29 08/02/17 18:15 08/02/17 20:33 08/03/17 03:12 Range/Units Bedside Glucose 131 108 70-90 mg/dl Arterial Blood pH 7.47 7.35-7.45 Arterial Blood Partial Pressure CO2 33 35-46 mmHg Arterial Blood Partial Pressure O2 57 80-95 mm/Hg Arterial Blood HCO3 23 19-24 mmol/L Arterial Blood Oxygen Saturation 87.9 90-95 % Arterial Blood Base Excess -0.2 -9-1.8 mEq/L Arterial Blood Gas Delivery 3 LITERS O2 Rex Test POS POS Creatine Kinase MB Ratio 0-3.0 Test 08/03/17 03:38 08/03/17 07:44 08/03/17 10:14 08/03/17 11:34 Range/Units Sodium Level 136 136 136-145 mmol/L Potassium Level 4.4 4.2 3.5-5.1 mmol/L Chloride Level 103 103 98-107 mmol/L Carbon Dioxide Level 25 24 21-32 mmol/L Anion Gap 8.0 9.0 3-11 mmol/L Blood Urea Nitrogen 72 71 7-18 mg/dl Creatinine 2.80 2.60 0.60-1.20 mg/dl Est Creatinine Clear Calc Drug Dose 14.6 15.7 ml/min Estimated GFR () 17.5 19.1 Estimated GFR (Non- 15.1 16.5 BUN/Creatinine Ratio 25.9 27.2 10-20 Random Glucose 215 230 70-99 mg/dl Calcium Level 8.8 8.6 8.5-10.1 mg/dl Creatine Kinase MB 1.6 1.5 0.5-3.6 ng/ml Troponin I 0.724 0.661 0-0.045 ng/ml Bedside Glucose 182 211 70-90 mg/dl Arterial Blood pH 7.47 7.35-7.45 Arterial Blood Partial Pressure CO2 33 35-46 mmHg Arterial Blood Partial Pressure O2 63 80-95 mm/Hg Arterial Blood HCO3 24 19-24 mmol/L Arterial Blood Oxygen Saturation 90.8 90-95 % Arterial Blood Base Excess 0.3 -9-1.8 mEq/L Arterial Blood Gas Delivery 3 L Rex Test POS POS Total Bilirubin 0.5 0.2-1 mg/dl Aspartate Amino Transf (AST/SGOT) 13 15-37 U/L Alanine Aminotransferase (ALT/SGPT) 16 12-78 U/L Alkaline Phosphatase 73 45-117 U/L Total Creatine Kinase 32 26-192 U/L Creatine Kinase MB Ratio 4.7 0-3.0 Pro-B-Type Natriuretic Peptide 9521 0-1800 pg/ml Total Protein 6.6 6.4-8.2 gm/dl Albumin 2.5 3.4-5.0 gm/dl Globulin 4.1 2.5-4.0 gm/dl Albumin/Globulin Ratio 0.6 0.9-2
[2017-08-03] MEDS: FUROSEMIDE INJ 40 MG in SYRINGE 0 ML IV SCH (17:28)
--- NOTE | 2017-08-03 19:25 | PROGRESS NOTE ---
DATE: 08/03/2017 HISTORY OF PRESENT ILLNESS: The patient was seen by me this evening in her medical floor bed. She was transferred from the telemetry yesterday. Yesterday, she did develop increased dyspnea and oxygen desaturation. Her chest x-ray revealed evidence of congestive heart failure. She was subsequently treated with intravenous furosemide. She states that she has no current dyspnea. She denies any chest discomfort. No palpitations, lightheadedness, or syncope. She does complain of sensation of tightness around her upper abdomen. This is throughout her upper abdomen. She states that this symptom comes and goes. She feels it started after she was placed on Seroquel. After being placed on Seroquel, she also has sensation of weakness in her upper body. CURRENT MEDICATIONS: Cosopt eyedrops 1 drop b.i.d., famotidine 20 mg b.i.d., fluticasone 2 sprays b.i.d., vitamin D 1000 units b.i.d., Monistat cream 1 application b.i.d., Lantus insulin b.i.d., furosemide 40 mg IV b.i.d., amlodipine 10 mg daily, clopidogrel 75 mg daily, metoprolol succinate ER 200 mg daily, senna 1 tab daily, levothyroxine 50 mcg daily, Seroquel 25 mg at bedtime, calcitriol 0.25 mcg Mondays, Wednesdays, and Fridays, subQ heparin 5000 units q. 12 hours, aspirin 81 mg daily, losartan 25 mg daily, Seroquel 12.5 mg q.a.m., isosorbide mononitrate 60 mg daily a.m., pravastatin 40 mg at bedtime, several p.r.n. medications. ALLERGIES AND ADVERSE DRUG REACTIONS: MULTIPLE. PLEASE SEE EHR. LIST REVIEWED BY ME. PHYSICAL EXAMINATION: VITAL SIGNS: This afternoon with oral temperature 36.5, pulse 75, blood pressure 131/84, pulse oximetry on 3 liters per minute nasal cannula, oxygen 90%. NECK: Jugular venous pressure 8 cm. LUNGS: Decreased breath sounds at both bases. No rales or wheezes. HEART: Regular rate and rhythm. S1, S2 normal. No S3 or S4. A 1/6 systolic murmur second right intercostal space and upper left sternal border. No diastolic murmur or rub. ABDOMEN: Nontender on palpation. No palpable masses or organomegaly. Her abdomen does appear to be distended. Normal bowel sounds. EXTREMITIES: No pretibial edema. No calf tenderness. NEUROLOGIC: Alert and oriented x3. Motor grossly intact. PSYCHIATRIC: Affect is normal. DATA: Electrocardiogram performed today with normal sinus rhythm, left axis deviation, voltage for LVH, ST depressions with T inversions leads 1, aVL, very minimal inferolateral ST segment depressions. No significant change compared to electrocardiogram of July 29. LABORATORY DATA: CBC yesterday with hemoglobin 10.0, and hematocrit 31.6. Platelet count was 237. WBC was 6.34. Metabolic profile today was sodium 136, potassium 4.2, chloride 103, carbon dioxide 24, BUN 71, creatinine 2.60, random glucose 230. Troponin I 0.661. Troponin I last night was 0.724. Troponin I on July 30 have been 4.670. Peak troponin I was on July 27 when it was 44.7. ProB natriuretic peptide today 9521. On August 01, it has been 12,117. AST and ALT today normal. Total bilirubin 0.5. Chest x-ray performed overnight revealed interstitial and alveolar edema consistent with congestive heart failure. ASSESSMENT: 1. Ischemic heart disease. Multivessel coronary artery disease on prior cardiac catheterization. Her vessels are very small caliber. She has diffuse coronary disease. The vessels are not good candidate for surgical or catheter based revascularization. She has an ischemic cardiomyopathy. She was admitted with a non-ST elevation myocardial infarction this admission. Echocardiography reveals moderate left ventricular systolic dysfunction with left ventricular ejection fraction approximately 40%. She also has grade 2 left ventricular diastolic dysfunction. Her right ventricular size and systolic function are normal. She has moderate mitral regurgitation. Trace to mild tricuspid regurgitation. 2. Worsening of acute on chronic systolic and diastolic heart failure last night. She has improved with intravenous diuretics. On exam this evening, she appears euvolemic. Her lung exam is good. Slight decreased breath sounds at both bases. No rales are noted. She has likely inaccurate intake and output reported yesterday and today. Today, no output is reported. No weight reported today. It is difficult to monitor her output after her Rm catheter was removed. 3. Chronic kidney disease. BUN and creatinine have increased with continued diuresis. Her potassium level is good. 4. Her troponin Is are minimally elevated today. The current troponin I elevation is consistent with the elevation noted several days ago. The troponin Is would remain elevated after a myocardial infarction for many days. 5. Blood pressure and heart rate under good control. 6. Suspect that she may have myocardial ischemia causing her episodes of worsened heart failure. 7. Abdominal discomfort. The patient feels that this sensation only started after she was placed on Seroquel. She feels very strongly about this. 8. Anemia. 9. No bleeding complaints. RECOMMENDATIONS: 1. From a cardiac standpoint, we will increase her isosorbide mononitrate to ____ mg b.i.d. 2. Continue intravenous diuretics today. If she is stable overnight, resume oral diuretic therapy tomorrow. 3. Consider discontinuing Seroquel and replacing with a different medication. 4. Daily weights. 5. Continue aspirin, clopidogrel, metoprolol, amlodipine, and losartan.
[2017-08-03] MEDS: PRAVASTATIN SOD 40 MG TAB PO SCH (21:09)
[2017-08-04 00:12] VITALS: BP 111/68; PULSE 69; TEMP 36.7; O2SAT 93
[2017-08-04] MEDS: LEVOTHYROXINE 50 MCG TAB PO SCH (06:17)
[2017-08-04 06:29] VITALS: BP 107/59; PULSE 69; TEMP 36.9; O2SAT 91
[2017-08-04] MEDS: SENNA 8.6 MG TAB PO SCH (08:00)
[2017-08-04] MEDS: AMLODIPINE BESYLATE 5 MG TAB PO SCH (08:00)
[2017-08-04] MEDS: CLOPIDOGREL BISULFATE 75 MG TAB PO SCH (08:00)
[2017-08-04] MEDS: FAMOTIDINE 20 MG TAB PO SCH ×2 (08:00→19:21)
[2017-08-04] MEDS: CHOLECALCIFEROL 1000 INTER.UNIT TAB PO SCH ×2 (08:00→19:20)
[2017-08-04] MEDS: ASPIRIN 81 MG ECTAB PO SCH (08:00)
[2017-08-04] MEDS: LOSARTAN POTASSIUM 25 MG TAB PO SCH (08:01)
[2017-08-04] MEDS: METOPROLOL SUCC 50MG EXT REL TAB PO SCH (08:01)
[2017-08-04] MEDS: FUROSEMIDE INJ 40 MG in SYRINGE 0 ML IV SCH (08:02)
[2017-08-04] MEDS: DOCUSATE SODIUM/SENNA 50/8.6MG TAB PO SCH (08:02)
[2017-08-04] MEDS: ISOSORBIDE MONONITRATE 60 MG TABCR PO SCH ×2 (08:02→19:20)
[2017-08-04] MEDS: MICONAZOLE NITRATE 2% CR 30 GM TUBE EXT SCH ×2 (08:03→19:20)
[2017-08-04] MEDS: FLUTICASONE PROPIONATE NA SPR 16 GM BTL NAE SCH ×2 (08:03→19:20)
[2017-08-04] MEDS: DORZOLAMIDE/TIMOLOL 22.3/6.8MG/ML 10 ML BTL OP SCH ×2 (08:03→19:19)
[2017-08-04] MEDS: HEPARIN SOD 5000 UNIT/0.5 ML CARP SQ SCH ×2 (08:13→20:13)
[2017-08-04] MEDS: INSULIN ASPART 100 UNITS/ML 3 ML PEN SQ SCH ×2 (08:18→12:31)
[2017-08-04] MEDS: INSULIN GLARGINE SOLOSTAR 100 UNITS/ML 3 ML PEN SQ SCH (08:19)
[2017-08-04 09:24] LABS: BUN/CREATININE RATIO 24.8 (10-20); MAGNESIUM 2.6 mg/dl (1.8-2.4); POTASSIUM 4.2 mmol/L (3.5-5.1)
[2017-08-04 09:26] LABS: ALB/GLOB RATIO 0.7 (0.9-2)
--- NOTE | 2017-08-04 13:10 | Pharmacy Progress Note ---
Glycemic: Assessment & Plan Date of Service Aug 04, 2017. Assessment & Plan ASSESSMENT: * BSGs have been stable for over a week on the same regimen; however, this morning, patient having hypoglycemia * Fasting BSG 64- patient was asymptomatic * My plan was to reduce Lantus but nursing had already administered full dose before change made in computer system * Lunch BSG 56 - patient IS symptomatic * Instructed nurse to have patient eat, do not give additional insulin * Continue to monitor patient frequently as she is experiencing sustained hypoglycemia * For tonight, continue very loose coverage * Reassess regimen in the AM PLAN: * Decrease basal from Lantus 16 units BID to HOLD PM dose * Re-evaluate needs in the AM * Loosen Novolog ACHS * CF: 25-->35 * CR:7-->12 * Change goal range to 120-160 mg/dL Pharmacy will continue to monitor patient daily and write orders per [facility] inpatient glycemic control protocol. Thanks. * Please note that the plan above was derived based on current level of insulin resistance and hospital stress. These recommendations are appropriate for inpatient admission only. Plan of care upon discharge will need to be reassessed to avoid potential outpatient hypo/hyperglycemia.
--- NOTE | 2017-08-04 15:42 | Progress Note ---
Internal Med Progress Note Date of Service: Aug 04, 2017. Provider Documentation: SUBJECTIVE: Patient reports making urine. Continues to be dependent on nasal cannula to maintain saturation above 92%. Patient denies shortness of breath and is not in respiratory distress OBJECTIVE: Physical Exam: General Appearance: no apparent distress, on nasal cannula Head: normocephalic, Atraumatic Eyes: normal inspection, EOMI, Neck: supple, trachea midline Respiratory/Chest: good air entry, with less bilateral congestion on lung auscultation compared to yesterday Cardiovascular: S1, S2, No murmur Abdomen/GI:Soft, Non tender, Bowel sounds present Extremities:normal inspection, Trace edema Neurologic/Psych:AAOX3, grossly no focal neurological deficits Skin: normal color, warm ASSESSMENT & PLAN: 81-year-old female with a history of Medically Managed Multivessel CAD, Ischemic Cardiomyopathy (LVEF of 40% -45% with multiple RWMAs), Combined Diastolic and Systolic CHF, Hypertension, Type 2 DM, Dyslipidemia and Hypothyroidism who was admitted acutely on 07/27/2017 after developing mid epigastric discomfort which radiated through to her back with associated nausea. Her EKG was abnormal, but no acute changes were noted. Her initial troponin I was 0.036 ng/mL and subsequently peaked at 44.70 ng/mL. Total CKs and CK-MBs were elevated as well consistent with an NSTEMI. Patient also had constipation during hospital stay reportedly for 5 days but was able to make bowel movement between 08/01/17 to 08/02/17 patient's discharge was canceled on 08/02/17 as she was demonstrating hypoxemia on pulse oximetry which has been confirmed by arterial blood gas. also on CXR seen to have bilateral infiltrates and still elevated BNP. Troponins downtrending. NSTEMI H/O multivessel CAD s/p inferior DC 2010 Poor candidate for PCI/CABG, Heparin ggt discontinued after 48 hours Continue ASA, Plavix, BB, Imdur, losartan, Statin, Imdur Acute on Chronic Systolic/Diastolic heart failure, ECHO: EF: 40-45% As per cardiology, patient can be on PO Lasix after response to IV Lasix, Will plan to have Lasix 40 mg PO as standing dose which is an increase from patient' s ambulatory dose of 20 mg daily Hypoxia likely due to recent NSTEMI oxygen therapy cannister is at the bedside for when is ready to be discharged HTN: Continue metoprolol, amlodipine Hold losartan for now Monitor DM II: A1C:8.9 patient noted to have hypoglycemia today. likely will need a reduced home diabetes regimen at home if on insulin vs continuing as oral anti- hyperglycemics only CHRONIC ANEMIA: Hb around 11.0 in Dec Monitor Hb DYSLIPIDEMIA Continue pravastatin HYPOTHYROIDISM S/P thyroidectomy for toxic multinodular goiter. TSH: normal Continue levothyroxine H/O VISUAL HALLUCINATIONS / H/O DELIRIUM Hospitalized twice over past year for altered mental status associated with visual hallucinations. Has underlying mild dementia. continue home meds monitor GLAUCOMA Continue Cosopt. Constipation: bowel regimen, Abdominal X ray shows stool burden, patient made bowel movements overnight between 08/01/17 to 08/02/17 VTE PX: heparin 5000 units q12 hours as inpatient CODE STATUS: Full code. DISPOSITION: potentially can be discharged with medications including per oral Lasix and home oxygen therapy if continues to remain stable patient's family member Mr. Llanes [phone]. patient's Internal Medicine follow-up with Dr.Timothy Mindy La MD General Internal Medicine [facility] on Sunday08/06/2017 at 10:45 AM ( [phone]) will need to be re-scheduled as this appointment was canceled patient has follow up with with Dr. Ruffin from [facility] on 08/16/17 at 10 AM but will likely need an earlier follow up appointment date PROCEDURES: ECHO: Moderate left ventricular systolic dysfunction. Apical akinesis. Lateral, posterior, and inferior hypokinesis. Anteroseptal akinesis. Mild concentric left ventricular hypertrophy. Grade 2 left ventricular diastolic dysfunction. Mild left atrial dilatation. Aortic valve sclerosis without significant stenosis. Moderate mitral regurgitation. Trace pulmonic regurgitation. Trace to mild tricuspid regurgitation. Mildly elevated estimated right ventricular systolic pressure. Vital Signs: Date Time Temp Pulse Resp B/P (MAP) Pulse Ox O2 Delivery O2 Flow Rate FiO2 08/04/17 15:54 36.4 66 20 114/65 (81) 97 Nasal Cannula 3.0 08/04/17 09:40 Nasal Cannula 3.0 08/04/17 06:29 36.9 69 15 107/59 (75) 91 Humidified Oxygen 3.0 08/04/17 00:12 36.7 69 19 111/68 (82) 93 Nasal Cannula 3.0 08/04/17 00:08 Nasal Cannula 3.0 08/03/17 16:00 Nasal Cannula 3.0 Lab Results: Results Past 24 Hours Test 08/03/17 17:29 08/03/17 21:06 08/04/17 07:26 08/04/17 07:45 Range/Units Bedside Glucose 98 126 64 74 70-90 mg/dl Test 08/04/17 08:03 08/04/17 11:15 08/04/17 12:27 Range/Units Sodium Level 138 136-145 mmol/L Potassium Level 4.2 3.5-5.1 mmol/L Chloride Level 103 98-107 mmol/L Carbon Dioxide Level 23 21-32 mmol/L Anion Gap 12.0 3-11 mmol/L Blood Urea Nitrogen 74 7-18 mg/dl Creatinine 3.00 0.60-1.20 mg/dl Est Creatinine Clear Calc Drug Dose 13.0 ml/min Estimated GFR () 16.1 Estimated GFR (Non- 13.9 BUN/Creatinine Ratio 24.8 10-20 Random Glucose 87 70-99 mg/dl Calcium Level 9.0 8.5-10.1 mg/dl Magnesium Level 2.6 1.8-2.4 mg/dl Total Bilirubin 0.5 0.2-1 mg/dl Aspartate Amino Transf (AST/SGOT) 12 15-37 U/L Alanine Aminotransferase (ALT/SGPT) 15 12-78 U/L Alkaline Phosphatase 67 45-117 U/L Total Protein 6.8 6.4-8.2 gm/dl Albumin 2.7 3.4-5.0 gm/dl Globulin 4.1 2.5-4.0 gm/dl Albumin/Globulin Ratio 0.7 0.9-2 Bedside Glucose 93 56 70-90 mg/dl
[2017-08-04 15:54] VITALS: BP 114/65; PULSE 66; TEMP 36.4; O2SAT 97
[2017-08-04] MEDS ORDERED: NURSING VERBAL MED ORDER ONE (17:30)
[2017-08-04] MEDS: ALUMINUM/MAGNESIUM/SIMETH (MAALOX MAX) 30 ML UDC PO PRN (17:33)
[2017-08-04] MEDS: INSULIN ASPART 100 UNITS/ML 3 ML PEN SC SCH ×2 (18:02→20:12)
[2017-08-04] MEDS: PRAVASTATIN SOD 40 MG TAB PO SCH (19:21)
[2017-08-04 23:07] VITALS: BP 117/75; PULSE 73; TEMP 36.7; O2SAT 95
[2017-08-04] MEDS: MoRPHine SULFATE 2 MG/ML CARP IV PRN (23:39)
[2017-08-05] VITALS: O2SAT 95
[2017-08-05] MEDS: LEVOTHYROXINE 50 MCG TAB PO SCH (06:00)
[2017-08-05 06:27] LABS: BUN/CREATININE RATIO 25.9 (10-20); CALCIUM 8.9 mg/dl (8.5-10.1); CREATININE 2.9 mg/dl (0.60-1.20); MAGNESIUM 2.5 mg/dl (1.8-2.4); POTASSIUM 4.3 mmol/L (3.5-5.1)
[2017-08-05 06:32] LABS: ALB/GLOB RATIO 0.6 (0.9-2)
[2017-08-05 07:26] VITALS: BP 121/74; PULSE 72; TEMP 36.5; O2SAT 94
[2017-08-05] MEDS: CLOPIDOGREL BISULFATE 75 MG TAB PO SCH (07:49)
[2017-08-05] MEDS: DOCUSATE SODIUM/SENNA 50/8.6MG TAB PO SCH (07:49)
[2017-08-05] MEDS: FAMOTIDINE 20 MG TAB PO SCH ×2 (07:49→19:18)
[2017-08-05] MEDS: ASPIRIN 81 MG ECTAB PO SCH (07:49)
[2017-08-05] MEDS: AMLODIPINE BESYLATE 5 MG TAB PO SCH (07:49)
[2017-08-05] MEDS: CHOLECALCIFEROL 1000 INTER.UNIT TAB PO SCH ×2 (07:49→19:17)
[2017-08-05] MEDS: DORZOLAMIDE/TIMOLOL 22.3/6.8MG/ML 10 ML BTL OP SCH ×2 (07:50→19:16)
[2017-08-05] MEDS: MICONAZOLE NITRATE 2% CR 30 GM TUBE EXT SCH ×2 (07:50→19:16)
[2017-08-05] MEDS: METOPROLOL SUCC 50MG EXT REL TAB PO SCH (07:50)
[2017-08-05] MEDS: ISOSORBIDE MONONITRATE 60 MG TABCR PO SCH ×2 (07:50→19:17)
[2017-08-05] MEDS: FLUTICASONE PROPIONATE NA SPR 16 GM BTL NAE SCH ×2 (07:50→19:16)
[2017-08-05] MEDS: LOSARTAN POTASSIUM 25 MG TAB PO SCH (07:50)
[2017-08-05] MEDS ORDERED: FUROSEMIDE 40 MG TAB PO ONE (08:00)
[2017-08-05] MEDS: HEPARIN SOD 5000 UNIT/0.5 ML CARP SQ SCH ×2 (08:21→20:20)
[2017-08-05] MEDS: INSULIN GLARGINE SOLOSTAR 100 UNITS/ML 3 ML PEN SQ SCH ×2 (08:44→20:20)
[2017-08-05] MEDS: INSULIN ASPART 100 UNITS/ML 3 ML PEN SC SCH ×4 (08:45→20:19)
--- NOTE | 2017-08-05 10:01 | Progress Note ---
Internal Med Progress Note Date of Service: Aug 05, 2017. Provider Documentation: SUBJECTIVE: patient has abdominal pain complaints of upset stomach that correlates with meal times. Patient denies pain of the chest. She continues to require oxygen therapy but denies increased in shortness of breath. EKG ordered which showed generally unchanged morphologies. Her cardiac enzymes shows normal CKMB and troponin of 0.4 is the lowest that her troponin level has been on this admission for NSTEMI. OBJECTIVE: Physical Exam: General Appearance: no apparent distress, on nasal cannula Head: normocephalic, Atraumatic Eyes: normal inspection, EOMI, Neck: supple, trachea midline Respiratory/Chest: good air entry, clear to auscultation bilaterally Cardiovascular: S1, S2, No murmur Abdomen/GI:Soft, Non tender, Bowel sounds present Extremities:normal inspection, Trace edema Neurologic/Psych:AAOX3, grossly no focal neurological deficits Skin: normal color, warm ASSESSMENT & PLAN: 81-year-old female with a history of Medically Managed Multivessel CAD, Ischemic Cardiomyopathy (LVEF of 40% -45% with multiple RWMAs), Combined Diastolic and Systolic CHF, Hypertension, Type 2 DM, Dyslipidemia and Hypothyroidism who was admitted acutely on 07/27/2017 after developing mid epigastric discomfort which radiated through to her back with associated nausea. Her EKG was abnormal, but no acute changes were noted. Her initial troponin I was 0.036 ng/mL and subsequently peaked at 44.70 ng/mL. Total CKs and CK-MBs were elevated as well consistent with an NSTEMI. Patient also had constipation during hospital stay reportedly for 5 days but was able to make bowel movement between 08/01/17 to 08/02/17 patient's discharge was canceled on 08/02/17 as she was demonstrating hypoxemia on pulse oximetry which has been confirmed by arterial blood gas. also on CXR seen to have bilateral infiltrates and still elevated BNP. Troponins downtrending Today on 08/05/17, patient had cardiac enzymes measured and EKG performed to rule out cardiac causes of complaints of upset stomach with meals by the patient. EKG ordered which showed generally unchanged morphologies. Her cardiac enzymes shows normal CKMB and troponin of 0.4 is the lowest that her troponin level has been on this admission for NSTEMI Patient's family. Mr. Llanes was called in regards to patient's discharge directions which include having her eat soft foods that are easier to digest. NSTEMI H/O multivessel CAD s/p inferior IN 2010 Patient was deemed by cardiology to be poor candidate for PCI/CABG, Heparin drip was given during this admission and discontinued after 48 hours Continue ASA, Plavix, BB, Imdur, losartan, Statin, Imdur Acute on Chronic Systolic/Diastolic heart failure, ECHO: EF: 40-45% As per cardiology, patient can be on PO Lasix after response to IV Lasix Will give prescription to increase original home dose of 20 mg daily Lasix to 40 mg daily Lasix Hypoxia likely due to recent [id number] oxygen therapy cannister is at the bedside for when is ready to be discharged HTN: Continue metoprolol, amlodipine, can restart losartan for home DM II: A1C:8.9 patient noted to have hypoglycemia on 08/04/17. likely will need a reduced home diabetes regimen at home if on insulin vs continuing as oral anti- hyperglycemics only CHRONIC ANEMIA DYSLIPIDEMIA Continue pravastatin HYPOTHYROIDISM S/P thyroidectomy for toxic multinodular goiter. TSH: normal Continue levothyroxine H/O VISUAL HALLUCINATIONS / H/O DELIRIUM Hospitalized twice over past year for altered mental status associated with visual hallucinations. Has underlying mild dementia. continue home meds GLAUCOMA Continue Cosopt. Constipation/GI upset: bowel regimen, Abdominal X ray shows stool burden, patient made bowel movements overnight between 08/01/17 to 08/02/17 and constipation resolved, encourage soft diet to avoid indigestion discomfort VTE PX: heparin 5000 units q12 hours as inpatient CODE STATUS: Full code. DISPOSITION: discharge to home under care of patient's family member Mr. Llanes . patient's Internal Medicine follow-up with Dr.Timothy Mindy La MD General Internal Medicine [facility] on Sunday08/06/2017 at 10:45 AM ) patient has follow up with with Dr. Ruffin from [facility] group on 08/16/17 at 10 AM but will likely need an earlier follow up appointment date PROCEDURES: ECHO: Moderate left ventricular systolic dysfunction. Apical akinesis. Lateral, posterior, and inferior hypokinesis. Anteroseptal akinesis. Mild concentric left ventricular hypertrophy. Grade 2 left ventricular diastolic dysfunction. Mild left atrial dilatation. Aortic valve sclerosis without significant stenosis. Moderate mitral regurgitation. Trace pulmonic regurgitation. Trace to mild tricuspid regurgitation. Mildly elevated estimated right ventricular systolic pressure. Vital Signs: Date Time Temp Pulse Resp B/P (MAP) Pulse Ox O2 Delivery O2 Flow Rate FiO2 08/05/17 08:39 Nasal Cannula 3.0 08/05/17 07:26 36.5 72 22 121/74 (90) 94 Nasal Cannula 4.0 08/05/17 00:00 95 Nasal Cannula 3.0 08/04/17 23:07 36.7 73 18 117/75 (89) 95 Nasal Cannula 3.0 08/04/17 20:00 Nasal Cannula 3.0 08/04/17 18:32 Nasal Cannula 3.0 08/04/17 15:54 36.4 66 20 114/65 (81) 97 Nasal Cannula 3.0 Lab Results: Results Past 24 Hours Test 08/04/17 11:15 08/04/17 12:27 08/04/17 17:08 08/04/17 20:04 Range/Units Bedside Glucose 93 56 167 172 70-90 mg/dl Test 08/05/17 05:45 08/05/17 07:30 08/05/17 08:37 Range/Units Sodium Level 136 136-145 mmol/L Potassium Level 4.3 3.5-5.1 mmol/L Chloride Level 102 98-107 mmol/L Carbon Dioxide Level 24 21-32 mmol/L Anion Gap 10.0 3-11 mmol/L Blood Urea Nitrogen 75 7-18 mg/dl Creatinine 2.90 0.60-1.20 mg/dl Est Creatinine Clear Calc Drug Dose 13.5 ml/min Estimated GFR () 16.8 Estimated GFR (Non- 14.5 BUN/Creatinine Ratio 25.9 10-20 Random Glucose 214 70-99 mg/dl Calcium Level 8.9 8.5-10.1 mg/dl Magnesium Level 2.5 1.8-2.4 mg/dl Total Bilirubin 0.5 0.2-1 mg/dl Aspartate Amino Transf (AST/SGOT) 14 15-37 U/L Alanine Aminotransferase (ALT/SGPT) 13 12-78 U/L Alkaline Phosphatase 80 45-117 U/L Total Creatine Kinase 44 26-192 U/L Creatine Kinase MB 0.9 0.5-3.6 ng/ml Creatine Kinase MB Ratio 2.0 0-3.0 Troponin I 0.405 0-0.045 ng/ml Pro-B-Type Natriuretic Peptide 8153 0-1800 pg/ml Total Protein 6.9 6.4-8.2 gm/dl Albumin 2.7 3.4-5.0 gm/dl Globulin 4.2 2.5-4.0 gm/dl Albumin/Globulin Ratio 0.6 0.9-2 Bedside Glucose 195 70-90 mg/dl
[2017-08-05] MEDS ORDERED: FURO-85 PO (10:07)
--- NOTE | 2017-08-05 10:14 | Discharge Summary ---
"Discharge Summary Date of Service Aug 05, 2017. Discharge Summary Admission Date: Jul 27, 2017 at 10:08 Discharge Date: Aug 05, 2017 Discharge Disposition: Home Principal Diagnosis: myocardial infarction, history of CHF, diabetes, constipation, GI upset Procedures: heparin drip, transthoracic echo Consultations: cardiology Medication Reconciliation New Medications: Furosemide (Lasix) 20 Mg Tab 40 MG PO DAILY for 30 Days, #30 TAB 1 Refill Furosemide (Furosemide) 40 Mg Tab 40 MG PO DAILY for 30 Days, #30 TAB 1 Refill Continued Medications: Acetaminophen (Tylenol) 325 Mg Tab 650 MG PO Q4 PRN for Pain or Fever, TAB Amlodipine (Norvasc) 10 Mg Tab 10 MG PO DAILY, #30 Aspirin (Aspirin Chewable) 81 Mg Chew 81 MG PO DAILY Calcitriol (Rocaltrol Cap) 0.25 Mcg Cap 0.25 MCG PO MWF for 30 Days, CAP 5 Refills Take MWF Cholecalciferol (D 1000) 1,000 Unit Cap 1000 UNITS PO BID Clopidogrel (Plavix) 75 Mg Tab 75 MG PO DAILY Dorzolamide Hcl-Timolol Maleat (Cosopt Oph) 1 Mary Mary 1 DROPS OP BID, 3 Refills Famotidine (Pepcid) 20 Mg Tab 20 MG PO BID, TAB Fluticasone Propionate (Nasal) (Flonase Allergy Relief) 50 Mcg/Act Spr 2 SPRAYS MARK BID Insulin Aspart (Novolog) 100 Units/Ml Inj 10 UNITS SQ AC Insulin Glargine (Lantus Solostar) 100 Unit/Ml Inj 13 UNITS SQ BID Isosorbide Mononitrate Ext Rel (Imdur Ext Rel) 60 Mg Ertab 60 MG PO QAM, TAB Levothyroxine Sodium (Synthroid) 50 Mcg Tab 50 MCG PO QAM Losartan Potassium (Losartan Potassium) 25 Mg Tab 25 MG PO QAM for 30 Days, TAB Lutein (Lutein) 6 Mg Tab 6 MG PO DAILY Metoprolol Succinate (Toprol Xl) 200 Mg Tab 200 MG PO DAILY, #30 Nitroglycerin (Nitrostat) 0.4 Mg Tab 0.4 MG UT PRN for Chest Pain, 0 Refills One tablet under tongue if needed for chest pain. May repeat 3 times. If chest pain continues, call 911. Nystatin/Triamcinolone (Mycolog ||) Cr 1 APPLN TOP BID for APPLY TO CONI AREA Pravastatin Sodium (Pravastatin Sodium) 40 Mg Tab 40 MG PO QPM, #90 Quetiapine Fumarate (Seroquel) 25 Mg Tab 25 MG PO HS, TAB Quetiapine Fumarate (Seroquel) 25 Mg Tab 12.5 MG PO QAM, TAB Senna/Docusate Sod (Senokot S) 1 Tab Tab 1 TAB PO DAILY, TAB Discontinued Medications: Furosemide (Lasix) 40 Mg Tab 20 MG PO DAILY, TAB Admission Information HPI (per Admitting provider): 81 YO female followed by Dr. La for Internal Medicine and Dr. Ruffin for Cardiology. History of ischemic heart disease, hypertension, CKD, dyslipidemia, DM, and other problems noted below. Suffered inferior myocardial infarction in 2010. Cardiac cath demonstrated total occlusion of distal posterior descending artery. The vessel was very small and no intervention was performed. Diffuse disease of other coronary vessels was noted. Patient developed epigastric pain last evening around 19:00 after eating chicken nuggets for dinner. Pain radiated to her back. It was associated with some nausea, but no SOB or diaphoresis. She tried antacid without relief. Pain persisted for several hours, so she called EMS around 01:30 this morning. Initial EKG in ED did not show any apparent acute findings. Initial CPK, CPK-MB, troponin were normal. CT of chest without contrast did not show any acute findings. CT of abdomen + pelvis without IV or oral contrast showed nonobstructing renal calculi, diverticulosis, no apparent diverticulitis or other acute findings. Oxygenating well on RA at time of presentation to ED. Received IV NSS x 500 ml during the night. O2 sat this morning at 07:50 was 79% on RA. Supplemental O2 administered. Portable chest x-ray demonstrated pulmonary edema. Furosemide 40 mg IV x 1 was given. Repeat serum troponin was drawn at 09:05 and had risen from 0.0.6 to 10.1. Patient referred for admission. She was pain-free and breathing comfortably at time of my assessment. . Physical Exam (per Admitting): General Appearance: WD/WN, no apparent distress Head: normocephalic, atraumatic Eyes: normal inspection, PERRL, EOMI, sclerae normal, + pertinent finding ( conjunctivae normal) ENT: + pertinent finding (hard of hearing; edentulous) Neck: supple, no adenopathy, thyroid normal, trachea midline Respiratory/Chest: no respiratory distress, no accessory muscle use, + rales (bibasilar) Cardiovascular: regular rate, rhythm, no gallop, no murmur, + JVD, + abnormal peripheral pulses (diminished pedal pulses), + pertinent finding ( trace pretibial edema) Abdomen/GI: normal bowel sounds, soft, no organomegaly, no pulsatile mass, occult blood negative (per ED provider), + tenderness (mild epigastric tenderness) Extremities/Musculoskelatal: no calf tenderness, normal capillary refill, + pedal edema (trace), + pertinent finding (s/p transmet amputation left foot; superficial ulceration dorsum right great toe without erythema or drainage) Neurologic/Psych: 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 Patient denies pain of the chest. She continues to require oxygen therapy but denies increased in shortness of breath. EKG ordered which showed generally unchanged morphologies. Her cardiac enzymes shows normal CKMB and troponin of 0.4 is the lowest that her troponin level has been on this admission for NSTEMI. OBJECTIVE: Physical Exam: General Appearance: no apparent distress, on nasal cannula Head: normocephalic, Atraumatic Eyes: normal inspection, EOMI, Neck: supple, trachea midline Respiratory/Chest: good air entry, clear to auscultation bilaterally Cardiovascular: S1, S2, No murmur Abdomen/GI:Soft, Non tender, Bowel sounds present Extremities:normal inspection, Trace edema Neurologic/Psych:AAOX3, grossly no focal neurological deficits Skin: normal color, warm ASSESSMENT & PLAN: 81-year-old female with a history of Medically Managed Multivessel CAD, Ischemic Cardiomyopathy (LVEF of 40% -45% with multiple RWMAs), Combined Diastolic and Systolic CHF, Hypertension, Type 2 DM, Dyslipidemia and Hypothyroidism who was admitted acutely on 07/27/2017 after developing mid epigastric discomfort which radiated through to her back with associated nausea. Her EKG was abnormal, but no acute changes were noted. Her initial troponin I was 0.036 ng/mL and subsequently peaked at 44.70 ng/mL. Total CKs and CK-MBs were elevated as well consistent with an NSTEMI. Patient also had constipation during hospital stay reportedly for 5 days but was able to make bowel movement between 08/01/17 to 08/02/17 patient's discharge was canceled on 08/02/17 as she was demonstrating hypoxemia on pulse oximetry which has been confirmed by arterial blood gas. also on CXR seen to have bilateral infiltrates and still elevated BNP. Troponins downtrending Today on 08/05/17, patient had cardiac enzymes measured and EKG performed to rule out cardiac causes of complaints of upset stomach with meals by the patient. EKG ordered which showed generally unchanged morphologies. Her cardiac enzymes shows normal CKMB and troponin of 0.4 is the lowest that her troponin level has been on this admission for NSTEMI Patient's family. Mr. Llanes was called in regards to patient's discharge directions which include having her eat soft foods that are easier to digest. NSTEMI H/O multivessel CAD s/p inferior TX 2010 Patient was deemed by cardiology to be poor candidate for PCI/CABG, Heparin drip was given during this admission and discontinued after 48 hours Continue ASA, Plavix, BB, Imdur, losartan, Statin, Imdur Acute on Chronic Systolic/Diastolic heart failure, ECHO: EF: 40-45% As per cardiology, patient can be on PO Lasix after response to IV Lasix Will give prescription to increase original home dose of 20 mg daily Lasix to 40 mg daily Lasix Hypoxia likely due to recent [id number] oxygen therapy cannister is at the bedside for when is ready to be discharged HTN: Continue metoprolol, amlodipine, can restart losartan for home DM II: A1C:8.9 patient noted to have hypoglycemia on 08/04/17. likely will need a reduced home diabetes regimen at home if on insulin vs continuing as oral anti- hyperglycemics only CHRONIC ANEMIA DYSLIPIDEMIA Continue pravastatin HYPOTHYROIDISM S/P thyroidectomy for toxic multinodular goiter. TSH: normal Continue levothyroxine H/O VISUAL HALLUCINATIONS / H/O DELIRIUM Hospitalized twice over past year for altered mental status associated with visual hallucinations. Has underlying mild dementia. continue home meds GLAUCOMA Continue Cosopt. Constipation/GI upset: bowel regimen, Abdominal X ray shows stool burden, patient made bowel movements overnight between 08/01/17 to 08/02/17 and constipation resolved, encourage soft diet to avoid indigestion discomfort VTE PX: heparin 5000 units q12 hours as inpatient CODE STATUS: Full code. DISPOSITION: discharge to home under care of patient's family member Mr. Llanes . patient's Internal Medicine follow-up with Dr.Timothy Mindy La MD General Internal Medicine [facility] on Sunday08/06/2017 at 10:45 AM ) patient has follow up with with Dr. Ruffin from [facility] on 08/16/17 at 10 AM but will likely need an earlier follow up appointment date PROCEDURES: ECHO: Moderate left ventricular systolic dysfunction. Apical akinesis. Lateral, posterior, and inferior hypokinesis. Anteroseptal akinesis. Mild concentric left ventricular hypertrophy. Grade 2 left ventricular diastolic dysfunction. Mild left atrial dilatation. Aortic valve sclerosis without significant stenosis. Moderate mitral regurgitation. Trace pulmonic regurgitation. Trace to mild tricuspid regurgitation. Mildly elevated estimated right ventricular systolic pressure. Total time spent on discharge = This includes examination of the patient, discharge planning, medication reconciliation, and communication with other providers. Discharge Instructions Encourage soft foods. Furosemide at home increased from 20 mg daily to 40 mg daily. keep current home regimen, check fingerstick glucose to avoid blood sugars less than 60, adjust insulin as needed based on blood sugars discharge to home under care of patient's family member Mr. Llanes . patient's Internal Medicine follow-up with Dr.Timothy Mindy La MD General Internal Medicine [facility] on Sunday08/06/2017 at 10:45 AM ) patient has follow up with with Dr. Ruffin from [facility] on 08/16/17 at 10 AM but will likely need an earlier follow up appointment date If you have new onset chest pain, severe shortness of breath please seek immediate medical attention in Emergency Room"
[2017-08-05 10:15] VITALS: BP 121/74; PULSE 72; TEMP 36.5; O2SAT 94
[2017-08-05 15:40] VITALS: BP 119/72; PULSE 62; TEMP 36.4; O2SAT 94
[2017-08-05] MEDS: PRAVASTATIN SOD 40 MG TAB PO SCH (19:17)
[2017-08-05] MEDS: ALUMINUM/MAGNESIUM/SIMETH (MAALOX MAX) 30 ML UDC PO PRN ×2 (19:21→19:23)
[2017-08-05 22:50] VITALS: BP 107/65; PULSE 71; TEMP 36.5; O2SAT 90
[2017-08-06] MEDS: ALUMINUM/MAGNESIUM/SIMETH (MAALOX MAX) 30 ML UDC PO PRN (01:08)
[2017-08-06] MEDS: MoRPHine SULFATE 2 MG/ML CARP IV PRN (02:16)
[2017-08-06 02:34] VITALS: PULSE 74; O2SAT 90
--- NOTE | 2017-08-06 05:59 | Progress Note ---
Progress Note Date of Service Aug 06, 2017. Progress Note PRONOUNCEMENT Patient found unresponsive in bed by staff around 05:20. CPR initiated. Initial rhythm on playground monitor was asystole. Resuscitation attempted per ACLS protocol. Remained in asystole. Resuscitation efforts ceased at 05:45. Pupils 3 mm, mid position, nonreactive. No spontaneous respirations or heart sounds. Preliminary cause of : cardiac arrest secondary to ischemic heart disease recent non-ST elevation myocardial infarction Attempted to reach nephew / POA by phone. No answer. Message left for him to call back. .
--- NOTE | 2017-08-06 06:01 | EMERGENCY ROOM VISIT NOTE ---
ED Visit Note Resident Physician Supervision Note: I was present with Dr. Larios during the history and exam. I discussed the case with the resident and agree with the findings and plan as documented in the note. Upon my arrival to the patient's bedside, CPR was in progress. Respiratory therapy was ventilating the patient with an Ambu bag. Patient was asystolic on the monitor with no pulse and compressions were continued. IV access had been reestablished and the patient was given IV epinephrine 3 with CPR continued per ACLS protocol. Intubation was performed by Dr. Larios under my supervision. Please see his procedure note for further detail. This procedure was performed without complication. The patient was found at approximately 5:20 AM unresponsive by nursing staff. She was found not to have a pulse. It is unknown the patient's exact downtime. After the above interventions with no response in pulse or rhythm, the patient was pronounced at 5:45 AM. Please refer to nursing documentation for code details. Diagnosis: Cardiac arrest Documented By: Liliana Daniel
--- NOTE | 2017-08-06 06:10 | Procedure Note ---
Procedure Note Date of Service Aug 06, 2017. Procedure Note Procedure: Endotracheal Intubation Indication: Acute Cardiopulmonary Arrest, Need to secure definitive airway Performed by: Dr. Hitesh Larios, PGY3 Family Medicine Supervised by: Dr. Liliana Daniel MD Emergency Medicine Procedure Details: I arrived at the bedside during a code blue. The the patient was in asystolic and respiratory arrest and required emergent endotracheal intubation to secure the airway. Consent was implied. As the procedure was done in an emergency situation no sedation or paralytics were used. The patient was positioned supine at the foot of the bed. A Mac 4 Blade was used. The patient's mouth was scissored open, the tongued moved out of the way and the laryngoscope advanced into the vallecula. A grade I view of the vocal cords was achieved. A 7.0 cuffed endotracheal tube was advanced past the cords, the stylet was removed the cuff was inflated at 21 cm at the lip. Correct positioning was confirmed by colorimetric change on the end-tidal CO2 monitor as well as bilateral auscultation of both lung black. Complications: None EBL: none
--- NOTE | 2017-08-06 08:20 | Discharge Summary ---
Discharge Summary Date of Service Aug 06, 2017. Discharge Summary Admission Date: Jul 27, 2017 at 10:08 Discharge Date: Aug 06, 2017 Discharge Disposition: Principal Diagnosis: cardiac arrest secondary to ischemic heart disease, recent non-ST elevation myocardial infarction Secondary Diagnoses/Problems: Diabetes, Hypertension Procedures: heparin drip, transthoracic echo Consultations: cardiology Admission Information HPI (per Admitting provider): 81 YO female followed by Dr. La for Internal Medicine and Dr. Ruffin for Cardiology. History of ischemic heart disease, hypertension, CKD, dyslipidemia, DM, and other problems noted below. Suffered inferior myocardial infarction in 2010. Cardiac cath demonstrated total occlusion of distal posterior descending artery. The vessel was very small and no intervention was performed. Diffuse disease of other coronary vessels was noted. Patient developed epigastric pain last evening around 19:00 after eating chicken nuggets for dinner. Pain radiated to her back. It was associated with some nausea, but no SOB or diaphoresis. She tried antacid without relief. Pain persisted for several hours, so she called EMS around 01:30 this morning. Initial EKG in ED did not show any apparent acute findings. Initial CPK, CPK-MB, troponin were normal. CT of chest without contrast did not show any acute findings. CT of abdomen + pelvis without IV or oral contrast showed nonobstructing renal calculi, diverticulosis, no apparent diverticulitis or other acute findings. Oxygenating well on RA at time of presentation to ED. Received IV NSS x 500 ml during the night. O2 sat this morning at 07:50 was 79% on RA. Supplemental O2 administered. Portable chest x-ray demonstrated pulmonary edema. Furosemide 40 mg IV x 1 was given. Repeat serum troponin was drawn at 09:05 and had risen from 0.0.6 to 10.1. Patient referred for admission. She was pain-free and breathing comfortably at time of my assessment. . Physical Exam (per Admitting): General Appearance: WD/WN, no apparent distress Head: normocephalic, atraumatic Eyes: normal inspection, PERRL, EOMI, sclerae normal, + pertinent finding ( conjunctivae normal) ENT: + pertinent finding (hard of hearing; edentulous) Neck: supple, no adenopathy, thyroid normal, trachea midline Respiratory/Chest: no respiratory distress, no accessory muscle use, + rales (bibasilar) Cardiovascular: regular rate, rhythm, no gallop, no murmur, + JVD, + abnormal peripheral pulses (diminished pedal pulses), + pertinent finding ( trace pretibial edema) Abdomen/GI: normal bowel sounds, soft, no organomegaly, no pulsatile mass, occult blood negative (per ED provider), + tenderness (mild epigastric tenderness) Extremities/Musculoskelatal: no calf tenderness, normal capillary refill, + pedal edema (trace), + pertinent finding (s/p transmet amputation left foot; superficial ulceration dorsum right great toe without erythema or drainage) Neurologic/Psych: 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 first II-XII nml as tested (PERRL, EOMI, no facial palsy, no dysarthria, tongue midline), no motor/sensory deficits (motor strength upper and lower extremities grossly intact), alert, normal mood/affect, + disoriented (oriented to person, place, month & year but not date; could not name president ; no apparent hallucinations) Skin: normal color, warm/dry, no rash, + pertinent finding (healing burn dorsum right hand) Lymphatic: no adenopathy (cervical) Hospital Course 81-year-old female with a history of Medically Managed Multivessel CAD, Ischemic Cardiomyopathy (LVEF of 40% -45% with multiple RWMAs), Combined Diastolic and Systolic CHF, Hypertension, Type 2 DM, Dyslipidemia and Hypothyroidism who was admitted acutely on 07/27/2017 after developing mid epigastric discomfort which radiated through to her back with associated nausea. Her EKG was abnormal, but no acute changes were noted. Her initial troponin I was 0.036 ng/mL and subsequently peaked at 44.70 ng/mL. Total CKs and CK-MBs were elevated as well consistent with an NSTEMI. Patient was deemed by cardiology to be poor candidate for PCI/CABG, Heparin drip was given during this admission and discontinued after 48 hours. Also had been on ASA, Plavix, BB, Imdur, losartan, Statin, Imdur, Lasix, insulin Patient also had constipation during hospital stay reportedly for 5 days but was able to make bowel movement between 08/01/17 to 08/02/17 patient's discharge was canceled on 08/02/17 as she was demonstrating hypoxemia on pulse oximetry which has been confirmed by arterial blood gas. also on CXR seen to have bilateral infiltrates and still elevated BNP. Patient was started on higher doses of Lasix. On 08/05/17, patient had cardiac enzymes measured and EKG performed to rule out cardiac causes of complaints of upset stomach with meals by the patient. EKG ordered which showed generally unchanged morphologies. Her cardiac enzymes shows normal CKMB and troponin of 0.4 is the lowest that her troponin level has been on this admission for NSTEMI Patient found unresponsive in bed by staff around 05:20 on 08/06/17. CPR initiated. Initial rhythm on edge stainer machine was asystole. Resuscitation attempted per ACLS protocol. Remained in asystole. Resuscitation efforts ceased at 05:45. Pupils 3 mm, mid position, nonreactive. No spontaneous respirations or heart sounds. Preliminary cause of : cardiac arrest secondary to ischemic heart disease recent non-ST elevation myocardial infarction Patient's family member is Mr. Llanes. Attempts to reach him by phone were made. . Total time spent on discharge = This includes examination of the patient, discharge planning, medication reconciliation, and communication with other providers. Discharge Instructions see above
[2017-08-06] MEDS ORDERED: SODIUM CHLORIDE 0.9% 10ML FLUSH IV ONE (10:09)
== END 2017-08-06 10:10 | disposition expired ==
LOC: EDBD 02:04 → C.EDB 02:05 → C.2T 10:08 → ENRESERV 10:26 → CANRESERV 08-01 15:30 → ENRESERV 08-01 16:11 → C.4E 08-01 18:32
PROVIDERS: ADMIT Hospitalist; ATTEND Hospitalist
PROC: 0BH13EZ Insertion of Endotracheal Airway into Trachea, Percutaneous Approach (ICD-10-PCS; principal; 2017-08-06)
PROC: 5A02115 Assistance with Cardiac Output using Pulsatile Compression, Intermittent (ICD-10-PCS; 2017-08-06)
DX: I21.4 Non-ST elevation (NSTEMI) myocardial infarction (principal); I50.43 Acute on chronic combined systolic (congestive) and diastolic (congestive) heart failure; N18.4 Chronic kidney disease, stage 4 (severe); I13.0 Hypertensive heart and chronic kidney disease with heart failure and stage 1 through stage 4 chronic kidney disease, or unspecified chronic kidney disease; R09.02 Hypoxemia; I46.2 Cardiac arrest due to underlying cardiac condition; I25.5 Ischemic cardiomyopathy; I25.10 Atherosclerotic heart disease of native coronary artery without angina pectoris; I25.2 Old myocardial infarction; K59.00 Constipation, unspecified; E11.649 Type 2 diabetes mellitus with hypoglycemia without coma; R44.1 Visual hallucinations; F03.90 Unspecified dementia, unspecified severity, without behavioral disturbance, psychotic disturbance, mood disturbance, and anxiety; D64.9 Anemia, unspecified; E78.5 Hyperlipidemia, unspecified; E11.22 Type 2 diabetes mellitus with diabetic chronic kidney disease; E11.21 Type 2 diabetes mellitus with diabetic nephropathy; E11.40 Type 2 diabetes mellitus with diabetic neuropathy, unspecified; K21.9 Gastro-esophageal reflux disease without esophagitis; E03.9 Hypothyroidism, unspecified; H40.9 Unspecified glaucoma; Z51.81 Encounter for therapeutic drug level monitoring; Z79.899 Other long term (current) drug therapy; Z79.4 Long term (current) use of insulin; Z79.82 Long term (current) use of aspirin; Z79.02 Long term (current) use of antithrombotics/antiplatelets; Z85.3 Personal history of malignant neoplasm of breast; Z90.11 Acquired absence of right breast and nipple; Z89.432 Acquired absence of left foot; Z83.3 Family history of diabetes mellitus; Z82.49 Family history of ischemic heart disease and other diseases of the circulatory system; Z80.0 Family history of malignant neoplasm of digestive organs; Z82.3 Family history of stroke